=== PATIENT | male | born 1945 | race Caucasian/White ===

== ENCOUNTER 2017-02-14 19:07 | Inpatient (IN) | payer OTHER ==
[~2017-02-14] VITALS: Ht 165.1 cm; Wt 80.1 kg
[~2017-02-14 19:07] MED LIST: ACET1TAB84 PO; ALBUAER2 INH; ASPEC81 PO; ATOR-24 PO; BUDESUS NAE; CARB0.01 OP; CETITAB27 PO; CHOL100010 PO; CLOP1TAB15 PO; CYAN10005 PO; FERR1TAB24 PO; FIBE1CHW PO; FLM4 PO; LOSA1TAB PO; METO-478 PO; MOME200A INH; MULT-190 PO; MULT-506 PO; NTRGSL/4 UT; NXM/40 PO
[2017-02-14] MEDS ORDERED: MoRPHine SULFATE 4 MG/ML 1 ML CARP\\VIAL IV STA (19:30)
[2017-02-14] MEDS ORDERED: ONDANSETRON INJ 2 MG/ML 2 ML VIAL IV STA (19:30)
[2017-02-14] MEDS ORDERED: ASPI81TA21 PO (19:41)
[2017-02-14] MEDS ORDERED: VNTHFA/IN INH (19:41)
[2017-02-14] MEDS ORDERED: CHOL1TAB42 (19:41)
[2017-02-14] MEDS ORDERED: CZR50 PO (19:41)
[2017-02-14] MEDS ORDERED: FLM4 PO (19:41)
[2017-02-14] MEDS ORDERED: BALS1CAP2 PO (19:41)
[2017-02-14] MEDS ORDERED: MOME100A INH (19:41)
[2017-02-14] MEDS ORDERED: CHOL20009 PO (19:58)
[2017-02-14 20:10] LABS: BASO % 0.1 %; BASO ABS # 0.01 K/uL (0-0.2); COMPLETE YES; EOS % 1.5 %; HEMATOCRIT 44.8 % (42-52); IG% 0.2 %; LYMPH % 12.2 %; MEAN CELL VOLUME 93.3 fL (80-100); MEAN CORPUSCULAR HEMOGLOBIN 29.8 pg (25-34); MEAN CORPUSCULAR HGB CONC 31.9 g/dl (32-36); MEAN PLATELET VOLUME 9.5 fL (7.4-10.4); PLATELET COUNT 283 K/uL (130-400); WHITE BLOOD COUNT 12.27 K/uL (4.8-10.8)
[2017-02-14 20:16] LABS: URINE APPEARANCE CLEAR (CLEAR); URINE BILIRUBIN NEG (NEG); URINE COLOR YELLOW; URINE NITRITE NEG (NEG); UROBILINOGEN NEG (NEG)
[2017-02-14 20:20] LABS: MANUAL MICROSCOPIC REQUIRED? NO; REVIEW REQ? NO
[2017-02-14 20:26] LABS: BUN/CREATININE RATIO 15.1 (10-20); CALCIUM 8.9 mg/dl (8.5-10.1); CREATININE 1.1 mg/dl (0.60-1.40); POTASSIUM 4.3 mmol/L (3.5-5.1)
[2017-02-14] MEDS ORDERED: CLZ750 PO (21:08)
[2017-02-14] MEDS ORDERED: OPTIRAY 320 IV PRN (22:00)
--- NOTE | 2017-02-14 22:35 | DIAGNOSTIC IMAGING REPORT ---
ABDOMEN AND PELVIS CT WITH IV AND ORAL CONTRAST CT DOSE: 534.79 mGy.cm HISTORY: periumbilical pain eval for UC exacerbation TECHNIQUE: Multiaxial CT images of the abdomen and pelvis were performed following the use of intravenous and oral contrast. COMPARISON STUDY: None. FINDINGS: The lung bases are clear. No pneumoperitoneum. No pneumatosis. Partial fusion of the right sacroiliac joint. Moderate hiatus hernia. Hepatic steatosis. The gallbladder, spleen, and adrenal glands are unremarkable. Normal pancreas. No renal stones or hydronephrosis. No retroperitoneal lymphadenopathy. Normal bladder. The prostate is mildly enlarged. Normal appendix. The distal colon is decompressed. There is thickening of the terminal ileum involving the distal 20 cm. The ileum proximal to this area is mildly distended and fluid-filled consistent with a low-grade partial small bowel obstruction. IMPRESSION: 1. Mild thickening involving the terminal ileum consistent with an ileitis. This may be due to backwash ileitis in a patient with a history of ulcerative colitis. In addition, other inflammatory or infectious etiologies should be considered. 2. The small bowel proximal to the area of thickened terminal ileum are mildly distended and filled with fluid. Therefore, this is consistent with a partial small bowel obstruction. 3. Moderate hiatus hernia. 4. Hepatic steatosis. Electronically signed by: Dequan Treadwell M.D. 02/14/2017 10:33 PM Dictated Date/Time: 02/14/2017 10:26 PM
[2017-02-15] VITALS (7 sets, daily range): BP systolic 130–151; BP diastolic 79–91; PULSE 73–98; TEMP 36.4–36.7; O2SAT 93–97; Ht 165.1 cm; Wt 80.1 kg
--- NOTE | 2017-02-15 00:32 | EMERGENCY ROOM VISIT NOTE ---
History Report prepared by Regis: Stefanie Jones Under the Supervision of: Dr. Damon Green M.D. First contact with patient: 19:22 Chief Complaint: ABDOMINAL PAIN Stated Complaint: UPPER ABD PAIN History of Present Illness The patient is a 71 year old male who presents to the Emergency Room with complaints of worsening upper abdominal pain beginning at 11am this morning. The patient describes this pain as a sharp sensation. He notes the pain radiates to his mid abdomen. The patient is experiencing a dry throat and nausea. He denies vomiting or fever. The patient states that eating lunch around 12pm worsened his symptoms. He notes nothing improves his symptoms. The patient denies vomiting, diarrhea, pale stool, black or bloody stool, chest pain or trouble breathing. He notes that he still has his gall bladder. The patient has a history of hiatal hernia and ulcerative colitis. He is currently on Balsalazide. The patient initially thought that this was a flare up of his ulcerative colitis but he is not sure. The patient occasionally has an alcoholic beverage and states that Wednesday evening he had 3 beers. Source of History: patient Onset: 11am this morning Position: abdomen (upper) Quality: sharp Timing: worsening Modifying Factors (Worsening): eating Associated Symptoms: + abdominal pain (pain radiates to mid abdomen), + nausea, No chest pain, No diarrhea, No fevers, No hematochezia, No melena, No urinary symptoms, No vomiting Note: The patient is experiencing a dry throat. Review of Systems See HPI for pertinent positives & negatives. A total of 10 systems reviewed and were otherwise negative. Past Medical & Surgical Medical Problems: (1) Chest pain (2) Esophageal reflux (3) Mitral valve disorder (4) Pneumonia (5) Ulcerative colitis Family History Cancer Gallbladder disease Heart disease Hypertension Social History Smoking Status: Never Smoker Alcohol Use: occasionally Marital Status: Housing Status: lives with significant other Occupation Status: employed Current/Historical Medications Scheduled Aspirin Enteric Coated (Ecotrin Or Generic), 81 MG PO HS Atorvastatin (Lipitor), 1 TAB PO HS Balsalazide (Colazal), 2,250 MG PO TID Budesonide (Rhinocort Aq Nasal ), 2 SPRAYS GUILHERME HS Cholecalciferol (Vitamin D), 2,000 MG PO DAILY Clopidogrel (Plavix), 75 MG PO DAILY Cyanocobalamin (Vitamin B-12), 2,000 MCG PO QPM Esomeprazole Magnesium (Nexium), 40 MG PO DAILY Ferrous Sulfate (Feosol), 65 MG PO QAM Fiber (Fiber Select Gummies), 4 MG PO BID Losartan Potassium (Losartan Potassium), 50 MG PO DAILY Metoprolol Succinate (Toprol Xl), 1 TAB PO HS Mometasone Furoate-Formoterol (Dulera 100/5 Mcg), 2 PUFF INH BID Multivitamin (Multivitamin), 1 TAB PO DAILY Nitroglycerin (Nitrostat), 0.4 MG UT PRN Ocuvite Preservision (Ocuvite Preservision), 1 TAB PO DAILY Tamsulosin HCl (Tamsulosin HCl), 0.4 MG PO QPM Scheduled PRN Acetaminophen (Tylenol Arthritis Ext Rel), 2 TABS PO BID PRN for Pain Albuterol Hfa (Ventolin Hfa), 2 PUFFS INH QID PRN for SOB/Wheezing Carboxymethylcellulose-Glyceri (Optive), 1 DROPS OP QID PRN for dry eyes Cetirizine/Pseudoephedrine (Zyrtec-D Er 5MG/120MG), 1 TAB PO QAM PRN for ALLERGIC REACTION Allergies Coded Allergies: No Known Allergies (Verified , 02/14/17) Physical Exam Vital Signs Date Time Temp Pulse Resp B/P Pulse Ox O2 Delivery O2 Flow Rate FiO2 02/15/17 00:00 76 20 161/89 98 02/14/17 22:00 79 20 146/97 96 Room Air 02/14/17 20:49 74 20 160/95 95 02/14/17 19:58 83 20 158/101 98 Room Air 02/14/17 19:50 77 02/14/17 19:15 36.6 90 20 169/102 96 Room Air Physical Exam Constitutional: Vital signs reviewed. Eyes: Pupils are equal round reactive to light. Conjunctiva are noninjected. ENT: Pharynx is clear without erythema or exudate. Mucous membranes are moist. Neck supple without meningeal signs. Respiratory: Clear to auscultation bilaterally. Breath sounds are equal bilaterally. Cardiovascular: Regular rate and rhythm. No rubs or gallops. GI: Periumbilical tenderness, no guarding. Soft and nondistended. Bowel sounds are present. Musculoskeletal: No peripheral edema. No CVA tenderness. Integumentary: No cyanosis. Neurological: The patient is awake and alert. No focal deficits. Psychiatric: Normal affect. Medical Decision & Procedures ER Provider Diagnostic Interpretation: CT results as stated below per my review and radiologist interpretation. ABDOMEN AND PELVIS CT WITH IV AND ORAL CONTRAST CT DOSE: 534.79 mGy.cm HISTORY: periumbilical pain eval for UC exacerbation TECHNIQUE: Multiaxial CT images of the abdomen and pelvis were performed following the use of intravenous and oral contrast. COMPARISON STUDY: None. FINDINGS: The lung bases are clear. No pneumoperitoneum. No pneumatosis. Partial fusion of the right sacroiliac joint. Moderate hiatus hernia. Hepatic steatosis. The gallbladder, spleen, and adrenal glands are unremarkable. Normal pancreas. No renal stones or hydronephrosis. No retroperitoneal lymphadenopathy. Normal bladder. The prostate is mildly enlarged. Normal appendix. The distal colon is decompressed. There is thickening of the terminal ileum involving the distal 20 cm. The ileum proximal to this area is mildly distended and fluid-filled consistent with a low-grade partial small bowel obstruction. IMPRESSION: 1. Mild thickening involving the terminal ileum consistent with an ileitis. This may be due to backwash ileitis in a patient with a history of ulcerative colitis. In addition, other inflammatory or infectious etiologies should be considered. 2. The small bowel proximal to the area of thickened terminal ileum are mildly distended and filled with fluid. Therefore, this is consistent with a partial small bowel obstruction. 3. Moderate hiatus hernia. 4. Hepatic steatosis. Electronically signed by: Dequan Treadwell M.D. 02/14/2017 10:33 PM Dictated Date/Time: 02/14/2017 10:26 PM Laboratory Results 02/14/17 20:00 Red Blood Count 4.80, Mean Corpuscular Volume 93.3, Mean Corpuscular Hemoglobin 29.8, Mean Corpuscular Hemoglobin Concent 31.9, Mean Platelet Volume 9.5, Neutrophils (%) (Auto) 77.0, Lymphocytes (%) (Auto) 12.2, Monocytes (%) (Auto) 9.0, Eosinophils (%) (Auto) 1.5, Basophils (%) (Auto) 0.1, Neutrophils # (Auto) 9.45, Lymphocytes # (Auto) 1.50, Monocytes # (Auto) 1.10, Eosinophils # (Auto) 0.19, Basophils # (Auto) 0.01 02/14/17 20:00 Test 02/14/17 19:55 02/14/17 20:00 Urine Color YELLOW Urine Appearance CLEAR (CLEAR) Urine pH 6.0 (4.5-7.5) Urine Specific [place] 1.020 (1.000-1.030) Urine Protein NEG (NEG) Urine Glucose (UA) NEG (NEG) Urine Ketones NEG (NEG) Urine Occult Blood NEG (NEG) Urine Nitrite NEG (NEG) Urine Bilirubin NEG (NEG) Urine Urobilinogen NEG (NEG) Urine Leukocyte Esterase NEG (NEG) White Blood Count 12.27 K/uL (4.8-10.8) Red Blood Count 4.80 M/uL (4.7-6.1) Hemoglobin 14.3 g/dL (14.0-18.0) Hematocrit 44.8 % (42-52) Mean Corpuscular Volume 93.3 fL (80-100) Mean Corpuscular Hemoglobin 29.8 pg (25-34) Mean Corpuscular Hemoglobin Concent 31.9 g/dl (32-36) Platelet Count 283 K/uL (130-400) Mean Platelet Volume 9.5 fL (7.4-10.4) Neutrophils (%) (Auto) 77.0 % Lymphocytes (%) (Auto) 12.2 % Monocytes (%) (Auto) 9.0 % Eosinophils (%) (Auto) 1.5 % Basophils (%) (Auto) 0.1 % Neutrophils # (Auto) 9.45 K/uL (1.4-6.5) Lymphocytes # (Auto) 1.50 K/uL (1.2-3.4) Monocytes # (Auto) 1.10 K/uL (0.11-0.59) Eosinophils # (Auto) 0.19 K/uL (0-0.5) Basophils # (Auto) 0.01 K/uL (0-0.2) RDW Standard Deviation 50.4 fL (36.4-46.3) RDW Coefficient of Variation 14.8 % (11.5-14.5) Immature Granulocyte % (Auto) 0.2 % Immature Granulocyte # (Auto) 0.02 K/uL (0.00-0.02) Anion Gap 5.0 mmol/L (3-11) Est Creatinine Clear Calc Drug Dose 60.9 ml/min Estimated GFR () 78.4 Estimated GFR (Non- 67.7 BUN/Creatinine Ratio 15.1 (10-20) Calcium Level 8.9 mg/dl (8.5-10.1) Total Bilirubin 0.5 mg/dl (0.2-1) Direct Bilirubin 0.1 mg/dl (0-0.2) Aspartate Amino Transf (AST/SGOT) 18 U/L (15-37) Alanine Aminotransferase (ALT/SGPT) 22 U/L (12-78) Alkaline Phosphatase 75 U/L (45-117) Total Protein 7.4 gm/dl (6.4-8.2) Albumin 3.8 gm/dl (3.4-5.0) Lipase 79 U/L (73-393) Laboratory results as reviewed by me. Medications Administered Medications (Trade) Dose Ordered Sig/Marcela Route Start Time Stop Time Status Last Admin Dose Admin Morphine Sulfate (MoRPHine SULFATE INJ) 4 mg ONE STAT IV 02/14/17 19:30 02/14/17 19:32 DC 02/14/17 20:05 4 MG Ondansetron HCl (Zofran Inj) 4 mg NOW STAT IV 02/14/17 19:30 02/14/17 19:32 DC 02/14/17 20:05 4 MG ECG Indication: abdominal pain Rate (beats per minute): 69 Rhythm: normal sinus Findings: no acute ischemic change, no ectopy ED Course 1923: The patient was evaluated in room C4. A complete history and physical exam was performed. 1929: Zofran Inj 4 mg IV, Morphine Sulfate Inj 4 mg IV. 2041: I checked on the patient. I discussed his test results and elevated blood pressure with him. 2249: I discussed the patient's CT results with him. He notes the pain is coming back a little. 2252: I spoke with Dr. Juarez of [facility]. We discussed the patient and his results. The patient will be further evaluated by Dr. nAn Cohn. Medical Decision This is a 71-year-old male who presents with abdominal pain. Differential diagnosis includes pancreatitis, ulcerative colitis exacerbation, abscess, cholelithiasis, cholecystitis, duodenitis. I did perform a limited focused review of portions of the patient's old chart on the electronic medical record. The patient has had no recent pertinent visits to this hospital. Medication Reconciliation: I attest that I have personally reviewed the patient' s current medication list. Blood Pressure Screening: Patient was found to have an elevated blood pressure and was referred to their primary doctor for recheck and further treatment. I did evaluate the patient as noted above. IV access was established. I did treat the patient with IV morphine and Zofran. I did order and personally review the patient's 12-lead EKG as described above. I did order and review the patient's blood work as noted in the electronic medical record. His white blood cell count is slightly elevated. I did order a CT of the abdomen and pelvis. I did review the images myself as well as the radiology report as described above. He appears to have an ileitis and partial small bowel obstruction. I did discuss the test results with the patient. I did recommend hospitalization for further care and evaluation. I did discuss the case with the hospitalist and caseworker. Consults Time Called: 2250 Consulting Physician: Dr. Ann Cohn Returned Call: [phone] Juarez of [facility]. We discussed the patient and his results. The patient will be further evaluated by Dr. Ann Cohn. Impression Primary Impression: Partial small bowel obstruction Additional Impressions: Ileitis Ulcerative colitis Scribe Attestation The scribe's documentation has been prepared under my direct and personally reviewed by me in its entirety. I confirm that the note above accurately reflects all work, treatment, procedures, and medical decision making performed by me. Departure Information Dispostion Being Evaluated By Hospitalist Referrals Cherelle To M.D. (PCP) Problem Qualifiers Additional Impressions: Ulcerative colitis Ulcerative colitis location: unspecified ulcerative colitis location Digestive disease complication type: other complication Qualified Codes: K51.918 - Ulcerative colitis, unspecified with other complication
[2017-02-15] MEDS ORDERED: MoRPHine SULFATE 4 MG/ML 1 ML CARP\\VIAL IV PRN (04:15)
[2017-02-15] MEDS ORDERED: ACETAMINOPHEN 325 MG TAB PO PRN (04:30)
[2017-02-15] MEDS ORDERED: ARTIFICIAL TEARS OP SOLN OP PRN ×2 (04:30)
[2017-02-15] MEDS ORDERED: ONDANSETRON INJ 2 MG/ML 2 ML VIAL IV PRN (04:30)
--- NOTE | 2017-02-15 04:47 | History and Physical ---
History & Physical Date & Time of Service: February 15, 2017 at 04:34 Chief Complaint: Upper Abd Pain Primary Care Physician: Cherelle To M.D. History of Present Illness Source: patient, clinic records, hospital records 71 year old male with history of Ulcerative Colitis presenting with abdominal pain x [address] To for PCP and Dr. Caldwell for GI. Patient was at his usual state of health until the day of admission. He started to have crampy abdominal discomfort in the morning but notes normal BM at around 7am. After lunch, lower abdominal pain increased associated with nausea. No fever/chills. The pain persisted prompting consult to the ER. CT abdomen showed ileitis, with possible partial small bowel obstruction. He was given Morphine and Zofran. On my exam, patient was comfortable, resting. States abdominal pain is now only mild, improved since admission. No active nausea. No vomiting, diarrhea, hematochezia. Denies other symptoms. Past Medical/Surgical History Medical Problems: (1) Pneumonia Status: Resolved (2) Ulcerative colitis Status: Chronic Family History Cancer Gallbladder disease Heart disease Hypertension Social History Smoking Status: Never Smoker Alcohol Use: occasionally (once a week) Drug Use: none Marital Status: Housing status: lives with family Occupational Status: employed Immunizations History of Influenza Vaccine: Yes Influenza Vaccine Date: Jun 23, 2010 History of Tetanus Vaccine?: Unknown Tetanus Immunization Date: Jan 10, 2002 History of Pneumococcal: Unknown History of Hepatitis B Vaccine: No Multi-Drug Resistant Organisms History of MDRO: No Allergies Coded Allergies: No Known Allergies (Verified , 02/14/17) Home Medications Scheduled Aspirin Enteric Coated (Ecotrin Or Generic), 81 MG PO HS Atorvastatin (Lipitor), 1 TAB PO HS Balsalazide (Colazal), 2,250 MG PO TID Budesonide (Rhinocort Aq Nasal ), 2 SPRAYS GUILHERME HS Cholecalciferol (Vitamin D), 2,000 MG PO DAILY Clopidogrel (Plavix), 75 MG PO DAILY Cyanocobalamin (Vitamin B-12), 2,000 MCG PO QPM Esomeprazole Magnesium (Nexium), 40 MG PO DAILY Ferrous Sulfate (Feosol), 65 MG PO QAM Fiber (Fiber Select Gummies), 4 MG PO BID Losartan Potassium (Losartan Potassium), 50 MG PO DAILY Metoprolol Succinate (Toprol Xl), 1 TAB PO HS Mometasone Furoate-Formoterol (Dulera 100/5 Mcg), 2 PUFF INH BID Multivitamin (Multivitamin), 1 TAB PO DAILY Nitroglycerin (Nitrostat), 0.4 MG UT PRN Ocuvite Preservision (Ocuvite Preservision), 1 TAB PO DAILY Tamsulosin HCl (Tamsulosin HCl), 0.4 MG PO QPM Scheduled PRN Acetaminophen (Tylenol Arthritis Ext Rel), 2 TABS PO BID PRN for Pain Albuterol Hfa (Ventolin Hfa), 2 PUFFS INH QID PRN for SOB/Wheezing Carboxymethylcellulose-Glyceri (Optive), 1 DROPS OP QID PRN for dry eyes Cetirizine/Pseudoephedrine (Zyrtec-D Er 5MG/120MG), 1 TAB PO QAM PRN for ALLERGIC REACTION Review of Systems Constitutional- no fever; no weight loss Eyes- no acute visual changes ENT- no sinus drainage; no pharyngitis Pulmonary- no cough, no wheezing, no shortness of breath Cardiac- no chest pain, no palpitations, no orthopnea, no dependent edema GI- no diarrhea, no melena, no hematochezia - no dysuria, no hematuria Musculoskeletal- no arthralgias, no myalgias Derm- no rashes, no new skin lesions, no changing skin lesions Hematologic- no unusual bruising, no unusual bleeding Lymphatics- no adenopathy Endocrine- no polyuria or polydipsia; no heat or cold intolerance Neuro- no headaches, no focal neurologic symptoms Psych- no anxiety, no depression Physical Exam Vital Signs Date Time Temp Pulse Resp B/P Pulse Ox O2 Delivery O2 Flow Rate FiO2 02/15/17 02:00 102 20 126/86 98 02/15/17 00:31 36.7 89 16 130/91 97 Room Air 02/15/17 00:00 76 20 161/89 98 02/14/17 22:00 79 20 146/97 96 Room Air 02/14/17 20:49 74 20 160/95 95 02/14/17 19:58 83 20 158/101 98 Room Air 02/14/17 19:50 77 02/14/17 19:15 36.6 90 20 169/102 96 Room Air General Appearance: WD/WN, no apparent distress Head: normocephalic, atraumatic Eyes: normal inspection, EOMI, sclerae normal ENT: normal ENT inspection, hearing grossly normal, pharynx normal Neck: supple, no adenopathy, thyroid normal, no JVD, trachea midline Respiratory/Chest: chest non-tender, lungs clear, normal breath sounds, no respiratory distress, no accessory muscle use Cardiovascular: regular rate, rhythm, no edema, no JVD, no murmur Abdomen/GI: normal bowel sounds, non tender, soft, no organomegaly Back: normal inspection, no CVA tenderness Extremities/Musculoskelatal: normal inspection, no calf tenderness, no pedal edema, normal range of motion Neurologic/Psych: gluing 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 feeder II-XII nml as tested, no motor/sensory deficits, alert, normal mood/affect, oriented x 3 Skin: normal color, warm/dry, no rash Lymphatic: no adenopathy Diagnostics Laboratory Results Results Past 24 Hours Test 02/14/17 19:55 02/14/17 20:00 02/15/17 04:27 Range/Units Urine Color YELLOW Urine Appearance CLEAR CLEAR Urine pH 6.0 4.5-7.5 Urine Specific [place] 1.020 1.000-1.030 Urine Protein NEG NEG Urine Glucose (UA) NEG NEG Urine Ketones NEG NEG Urine Occult Blood NEG NEG Urine Nitrite NEG NEG Urine Bilirubin NEG NEG Urine Urobilinogen NEG NEG Urine Leukocyte Esterase NEG NEG White Blood Count 12.27 4.8-10.8 K/uL Red Blood Count 4.80 4.7-6.1 M/uL Hemoglobin 14.3 14.0-18.0 g/dL Hematocrit 44.8 42-52 % Mean Corpuscular Volume 93.3 80-100 fL Mean Corpuscular Hemoglobin 29.8 25-34 pg Mean Corpuscular Hemoglobin Concent 31.9 32-36 g/dl Platelet Count 283 130-400 K/uL Mean Platelet Volume 9.5 7.4-10.4 fL Neutrophils (%) (Auto) 77.0 % Lymphocytes (%) (Auto) 12.2 % Monocytes (%) (Auto) 9.0 % Eosinophils (%) (Auto) 1.5 % Basophils (%) (Auto) 0.1 % Neutrophils # (Auto) 9.45 1.4-6.5 K/uL Lymphocytes # (Auto) 1.50 1.2-3.4 K/uL Monocytes # (Auto) 1.10 0.11-0.59 K/uL Eosinophils # (Auto) 0.19 0-0.5 K/uL Basophils # (Auto) 0.01 0-0.2 K/uL RDW Standard Deviation 50.4 36.4-46.3 fL RDW Coefficient of Variation 14.8 11.5-14.5 % Immature Granulocyte % (Auto) 0.2 % Immature Granulocyte # (Auto) 0.02 0.00-0.02 K/uL Sodium Level 141 136-145 mmol/L Potassium Level 4.3 3.5-5.1 mmol/L Chloride Level 105 98-107 mmol/L Carbon Dioxide Level 31 21-32 mmol/L Anion Gap 5.0 3-11 mmol/L Blood Urea Nitrogen 17 7-18 mg/dl Creatinine 1.10 0.60-1.40 mg/dl Est Creatinine Clear Calc Drug Dose 60.9 ml/min Estimated GFR () 78.4 Estimated GFR (Non- 67.7 BUN/Creatinine Ratio 15.1 10-20 Random Glucose 111 70-99 mg/dl Calcium Level 8.9 8.5-10.1 mg/dl Total Bilirubin 0.5 0.2-1 mg/dl Direct Bilirubin 0.1 0-0.2 mg/dl Aspartate Amino Transf (AST/SGOT) 18 15-37 U/L Alanine Aminotransferase (ALT/SGPT) 22 12-78 U/L Alkaline Phosphatase 75 45-117 U/L Total Protein 7.4 6.4-8.2 gm/dl Albumin 3.8 3.4-5.0 gm/dl Lipase 79 73-393 U/L Diagnostic Radiology ABDOMEN AND PELVIS CT WITH IV AND ORAL CONTRAST CT DOSE: 534.79 mGy.cm HISTORY: periumbilical pain eval for UC exacerbation TECHNIQUE: Multiaxial CT images of the abdomen and pelvis were performed following the use of intravenous and oral contrast. COMPARISON STUDY: None. FINDINGS: The lung bases are clear. No pneumoperitoneum. No pneumatosis. Partial fusion of the right sacroiliac joint. Moderate hiatus hernia. Hepatic steatosis. The gallbladder, spleen, and adrenal glands are unremarkable. Normal pancreas. No renal stones or hydronephrosis. No retroperitoneal lymphadenopathy. Normal bladder. The prostate is mildly enlarged. Normal appendix. The distal colon is decompressed. There is thickening of the terminal ileum involving the distal 20 cm. The ileum proximal to this area is mildly distended and fluid-filled consistent with a low-grade partial small bowel obstruction. IMPRESSION: 1. Mild thickening involving the terminal ileum consistent with an ileitis. This may be due to backwash ileitis in a patient with a history of ulcerative colitis. In addition, other inflammatory or infectious etiologies should be considered. 2. The small bowel proximal to the area of thickened terminal ileum are mildly distended and filled with fluid. Therefore, this is consistent with a partial small bowel obstruction. 3. Moderate hiatus hernia. 4. Hepatic steatosis. EKG HR 69, sinus rhythm, no acute ischemia Impression Assessment and Plan 71 year old male with history of Ulcerative Colitis presenting with abdominal pain x 1 day. ILEITIS, POSSIBLE PARTIAL SMALL BOWEL OBSTRUCTION ULCERATIVE COLITIS - follows with Dr. Caldwell for GI in [place] - denies hematochezia, diarrhea, fever - start Cipro + Metro IV one dose Prednisone 40mg PO (may have component of Crohn's?) IV fluids NPO - hold Balsalazide until GI evaluation - GI and Surgery consulted HYPERTENSION - Metoprolol, Losartan DYSLIPIDEMIA - hold statin until GI symptoms resolve GERD - Protonix IV BPH - Tamsulosin DVT PROPHYLAXIS SCDs only for now due to ongoing ileitis FULL CODE PER PATIENT DISPOSITION anticipate d/c home when medically stable Advanced Directives Existing Living Will: Yes Existing Power of Railroad Carman: Yes VTE Prophylaxis VTE Risk Assessment Done? Y/N: Yes Risk Level: Moderate Given or contraindicated: SCD's
[2017-02-15] MEDS: D5W AND NSS 1,000 ML IV SCH ×2 (05:29→13:47)
[2017-02-15] MEDS ORDERED: PANTOprazole INJ 40 MG in SYRINGE 0 ML IV ONE (05:30)
[2017-02-15] MEDS: METRONIDAZOLE / NSS 500 MG in PREMIXED NSS 100 ML IV SCH ×3 (05:48→22:06)
--- NOTE | 2017-02-15 05:59 | Medical Consult ---
Consultation Date of Consultation: February 15, 2017. Attending Physician: Britton Britt MD Reason for Consultation: partial sbo History of Present Illness admitted with abd pain, nausea- CT shows mildly dilated sm bowel w/ evidence of ileitis h/o ulcerative colitis- very stable Past Medical/Surgical History Medical Problems: (1) Angina pectoris Status: Acute (2) Ileitis Status: Acute (3) Partial small bowel obstruction Status: Acute (4) Right upper lobe pneumonia Status: Acute (5) Ulcerative colitis Status: Chronic Family History Cancer Gallbladder disease Heart disease Hypertension Social History Smoking Status: Never Smoker Alcohol Use: occasionally (once a week) Drug Use: none Marital Status: Housing Status: lives with significant other Occupation Status: employed Allergies Coded Allergies: No Known Allergies (Verified , 02/14/17) Current Inpatient Medications Current Inpatient Medications Medications (Trade) Dose Ordered Sig/Marcela Route Start Time Stop Time Status Last Admin Dose Admin Ioversol 100 ml 100 ml UD PRN IV 02/14/17 22:00 02/18/17 21:59 Dextrose/Sodium Chloride 1,000 ml @ 100 mls/hr Q10H IV 02/15/17 04:15 03/17/17 04:14 02/15/17 05:29 100 MLS/HR Ciprofloxacin/ Dextrose 400 mg/ Prmx 200 ml @ 100 mls/hr Q12H IV 02/15/17 08:00 02/25/17 07:59 Metronidazole/Prmx (Flagyl / Nss/ Premixed Nss) 100 ml @ 100 mls/hr Q8H IV 02/15/17 06:00 02/25/17 05:59 02/15/17 05:48 100 MLS/HR Prednisone (PredniSONE TAB) 40 mg ONE ONCE PO 02/15/17 06:00 02/15/17 06:01 Morphine Sulfate (MoRPHine SULFATE INJ) 4 mg Q6H PRN IV 02/15/17 04:15 03/01/17 04:14 Budesonide (Rhinocort Aq Nasal [place]) 2 sprays HS GUILHERME 02/15/17 21:00 03/17/17 20:59 Losartan Potassium (coZAAR TAB) 50 mg DAILY PO 02/15/17 09:00 03/17/17 08:59 Metoprolol Succinate (Toprol Xl Tab) 25 mg HS PO 02/15/17 21:00 03/17/17 20:59 Tamsulosin HCl (Flomax Cap) 0.4 mg QPM PO 02/15/17 21:00 03/17/17 20:59 Artificial Tears (Artificial Tears) 1 drops QID PRN OP 02/15/17 04:30 03/17/17 04:29 Miscellaneous Information 1 ea 1 ea QS N/A 02/15/17 08:00 03/17/17 07:59 Pantoprazole Sodium/Syringe (Protonix Inj/ Syringe) 10 ml @ 5 mls/min DAILY@11 IV 02/15/17 11:00 03/17/17 10:59 Acetaminophen (Tylenol Tab) 650 mg Q4H PRN PO 02/15/17 04:30 03/17/17 04:29 Ondansetron HCl (Zofran Inj) 4 mg Q6H PRN IV 02/15/17 04:30 03/17/17 04:29 Review of Systems Constitutional: No chills, No fever Respiratory: No cough, No shortness of breath Cardiovascular: No chest pain Abdomen: + nausea, + pain, No vomiting Genitourinary - Male: No dysuria Endocrine: No fatigue Integumentary: No rash Physical Exam Date Time Temp Pulse Resp B/P Pulse Ox O2 Delivery O2 Flow Rate FiO2 02/15/17 04:55 Room Air 02/15/17 04:55 36.6 95 16 136/80 93 Room Air 02/15/17 04:45 89 20 126/81 94 Room Air 02/15/17 02:00 102 20 126/86 98 02/15/17 00:31 36.7 89 16 130/91 97 Room Air 02/15/17 00:00 76 20 161/89 98 02/14/17 22:00 79 20 146/97 96 Room Air 02/14/17 20:49 74 20 160/95 95 02/14/17 19:58 83 20 158/101 98 Room Air 02/14/17 19:50 77 02/14/17 19:15 36.6 90 20 169/102 96 Room Air General Appearance: WD/WN, no apparent distress Head: atraumatic Neck: supple Respiratory/Chest: normal breath sounds, no respiratory distress Cardiovascular: regular rate, rhythm Abdomen/GI: normal bowel sounds, non tender, soft Extremities/Musculoskelatal: no pedal edema Neurologic/Psych: alert Skin: warm/dry Laboratory Results Last 24 Hours Test 02/14/17 19:55 02/14/17 20:00 02/15/17 04:27 Urine Color YELLOW Urine Appearance CLEAR Urine pH 6.0 Urine Specific [place] 1.020 Urine Protein NEG Urine Glucose (UA) NEG Urine Ketones NEG Urine Occult Blood NEG Urine Nitrite NEG Urine Bilirubin NEG Urine Urobilinogen NEG Urine Leukocyte Esterase NEG White Blood Count 12.27 K/uL Red Blood Count 4.80 M/uL Hemoglobin 14.3 g/dL Hematocrit 44.8 % Mean Corpuscular Volume 93.3 fL Mean Corpuscular Hemoglobin 29.8 pg Mean Corpuscular Hemoglobin Concent 31.9 g/dl Platelet Count 283 K/uL Mean Platelet Volume 9.5 fL Neutrophils (%) (Auto) 77.0 % Lymphocytes (%) (Auto) 12.2 % Monocytes (%) (Auto) 9.0 % Eosinophils (%) (Auto) 1.5 % Basophils (%) (Auto) 0.1 % Neutrophils # (Auto) 9.45 K/uL Lymphocytes # (Auto) 1.50 K/uL Monocytes # (Auto) 1.10 K/uL Eosinophils # (Auto) 0.19 K/uL Basophils # (Auto) 0.01 K/uL RDW Standard Deviation 50.4 fL RDW Coefficient of Variation 14.8 % Immature Granulocyte % (Auto) 0.2 % Immature Granulocyte # (Auto) 0.02 K/uL Sodium Level 141 mmol/L Potassium Level 4.3 mmol/L Chloride Level 105 mmol/L Carbon Dioxide Level 31 mmol/L Anion Gap 5.0 mmol/L Blood Urea Nitrogen 17 mg/dl Creatinine 1.10 mg/dl Est Creatinine Clear Calc Drug Dose 60.9 ml/min Estimated GFR () 78.4 Estimated GFR (Non- 67.7 BUN/Creatinine Ratio 15.1 Random Glucose 111 mg/dl Calcium Level 8.9 mg/dl Total Bilirubin 0.5 mg/dl Direct Bilirubin 0.1 mg/dl Aspartate Amino Transf (AST/SGOT) 18 U/L Alanine Aminotransferase (ALT/SGPT) 22 U/L Alkaline Phosphatase 75 U/L Total Protein 7.4 gm/dl Albumin 3.8 gm/dl Lipase 79 U/L Assessment & Plan 02/15/17- adm with partial sbo, ileitis, h/o UC. Has relatively normal bowel sounds and very minimally dilated small bowel- should resolve with medical mgt- no indication for surgical intervention at this point
[2017-02-15 06:13] LABS: BASO % 0.1 %; BASO ABS # 0.01 K/uL (0-0.2); COMPLETE YES; EOS % 1.9 %; HEMATOCRIT 39.7 % (42-52); IG% 0.3 %; LYMPH ABS # 1.43 K/uL (1.2-3.4); MEAN CELL VOLUME 92.5 fL (80-100); MEAN CORPUSCULAR HEMOGLOBIN 30.3 pg (25-34); MEAN CORPUSCULAR HGB CONC 32.7 g/dl (32-36); MEAN PLATELET VOLUME 9.8 fL (7.4-10.4); MONO % 12.7 %; PLATELET COUNT 270 K/uL (130-400); RED BLOOD COUNT 4.29 M/uL (4.7-6.1); WHITE BLOOD COUNT 10.21 K/uL (4.8-10.8)
[2017-02-15 06:43] LABS: BUN/CREATININE RATIO 16.3 (10-20); CALCIUM 8.5 mg/dl (8.5-10.1); CREATININE 0.98 mg/dl (0.60-1.40); MAGNESIUM 2.3 mg/dl (1.8-2.4); POTASSIUM 4.1 mmol/L (3.5-5.1)
[2017-02-15] MEDS: CIPROFLOXACIN / D5W 400 MG in PREMIXED IN D5W 200 ML IV SCH ×2 (07:39→19:41)
[2017-02-15] MEDS: LOSARTAN POTASSIUM 50 MG TAB PO SCH (07:39)
--- NOTE | 2017-02-15 09:39 | Progress Note ---
Internal Med Progress Note Date of Service: February 15, 2017. Provider Documentation: SUBJECTIVE: Seen and examined at bedside. States had BM this morning. Reports abd pain resolved. Denies nausea, vomiting, fever, chest pain, SOB. OBJECTIVE: Vital Signs-as noted below Physical Exam: General Appearance:Moderately built and nourished, no apparent distress Head: normocephalic, Atraumatic Eyes: normal inspection, EOMI, PERRL Neck: supple, Trachea midline Respiratory/Chest: Normal breath sounds, CTA Cardiovascular: S1, S2, No murmur Abdomen/GI:Soft, Non tender, Bowel sounds present Extremities/Musculoskelatal:normal inspection, no edema Neurologic/Psych:AAOX3, grossly no focal neurological deficits Skin: normal color, warm Lab data as noted below. ASSESSMENT & PLAN: Patient is a 71 yr old male with H/O of Ulcerative Colitis presents with abdominal pain for 1 day. ILEITIS, POSSIBLE PARTIAL SMALL BOWEL OBSTRUCTION H/O ULCERATIVE COLITIS Patient follows with Dr. Caldwell for GI in [place] Continue Cipro, Flagyl Received one dose Prednisone 40mg PO Continue IV fluids Start clear liquid diet Hold Balsalazide for now Await for GI evaluation Appreciate surgery input: No indication for surgery HYPERTENSION Continue Metoprolol, Losartan DYSLIPIDEMIA hold statin GERD Protonix IV BPH Continue Tamsulosin DVT PX SCDs Code Status: Full Code DISPOSITION Plan to discharge home when medically stable PROCEDURES: CT ABD: 1. Mild thickening involving the terminal ileum consistent with an ileitis. This may be due to backwash ileitis in a patient with a history of ulcerative colitis. In addition, other inflammatory or infectious etiologies should be considered. 2. The small bowel proximal to the area of thickened terminal ileum are mildly distended and filled with fluid. Therefore, this is consistent with a partial small bowel obstruction. 3. Moderate hiatus hernia. 4. Hepatic steatosis. Vital Signs: Date Time Temp Pulse Resp B/P Pulse Ox O2 Delivery O2 Flow Rate FiO2 02/15/17 07:35 Room Air 02/15/17 06:57 36.6 73 18 135/79 95 Room Air 02/15/17 04:55 Room Air 02/15/17 04:55 36.6 95 16 136/80 93 Room Air 02/15/17 04:45 89 20 126/81 94 Room Air 02/15/17 02:00 102 20 126/86 98 02/15/17 00:31 36.7 89 16 130/91 97 Room Air 02/15/17 00:00 76 20 161/89 98 02/14/17 22:00 79 20 146/97 96 Room Air 02/14/17 20:49 74 20 160/95 95 02/14/17 19:58 83 20 158/101 98 Room Air 02/14/17 19:50 77 02/14/17 19:15 36.6 90 20 169/102 96 Room Air Lab Results: Results Past 24 Hours Test 02/14/17 19:55 02/14/17 20:00 02/15/17 06:02 Range/Units Urine Color YELLOW Urine Appearance CLEAR CLEAR Urine pH 6.0 4.5-7.5 Urine Specific [place] 1.020 1.000-1.030 Urine Protein NEG NEG Urine Glucose (UA) NEG NEG Urine Ketones NEG NEG Urine Occult Blood NEG NEG Urine Nitrite NEG NEG Urine Bilirubin NEG NEG Urine Urobilinogen NEG NEG Urine Leukocyte Esterase NEG NEG White Blood Count 12.27 10.21 4.8-10.8 K/uL Red Blood Count 4.80 4.29 4.7-6.1 M/uL Hemoglobin 14.3 13.0 14.0-18.0 g/dL Hematocrit 44.8 39.7 42-52 % Mean Corpuscular Volume 93.3 92.5 80-100 fL Mean Corpuscular Hemoglobin 29.8 30.3 25-34 pg Mean Corpuscular Hemoglobin Concent 31.9 32.7 32-36 g/dl Platelet Count 283 270 130-400 K/uL Mean Platelet Volume 9.5 9.8 7.4-10.4 fL Neutrophils (%) (Auto) 77.0 71.0 % Lymphocytes (%) (Auto) 12.2 14.0 % Monocytes (%) (Auto) 9.0 12.7 % Eosinophils (%) (Auto) 1.5 1.9 % Basophils (%) (Auto) 0.1 0.1 % Neutrophils # (Auto) 9.45 7.25 1.4-6.5 K/uL Lymphocytes # (Auto) 1.50 1.43 1.2-3.4 K/uL Monocytes # (Auto) 1.10 1.30 0.11-0.59 K/uL Eosinophils # (Auto) 0.19 0.19 0-0.5 K/uL Basophils # (Auto) 0.01 0.01 0-0.2 K/uL RDW Standard Deviation 50.4 50.9 36.4-46.3 fL RDW Coefficient of Variation 14.8 15.1 11.5-14.5 % Immature Granulocyte % (Auto) 0.2 0.3 % Immature Granulocyte # (Auto) 0.02 0.03 0.00-0.02 K/uL Sodium Level 141 140 136-145 mmol/L Potassium Level 4.3 4.1 3.5-5.1 mmol/L Chloride Level 105 105 98-107 mmol/L Carbon Dioxide Level 31 29 21-32 mmol/L Anion Gap 5.0 6.0 3-11 mmol/L Blood Urea Nitrogen 17 16 7-18 mg/dl Creatinine 1.10 0.98 0.60-1.40 mg/dl Est Creatinine Clear Calc Drug Dose 60.9 68.4 ml/min Estimated GFR () 78.4 90.2 Estimated GFR (Non- 67.7 77.8 BUN/Creatinine Ratio 15.1 16.3 10-20 Random Glucose 111 112 70-99 mg/dl Calcium Level 8.9 8.5 8.5-10.1 mg/dl Total Bilirubin 0.5 0.2-1 mg/dl Direct Bilirubin 0.1 0-0.2 mg/dl Aspartate Amino Transf (AST/SGOT) 18 15-37 U/L Alanine Aminotransferase (ALT/SGPT) 22 12-78 U/L Alkaline Phosphatase 75 45-117 U/L Total Protein 7.4 6.4-8.2 gm/dl Albumin 3.8 3.4-5.0 gm/dl Lipase 79 73-393 U/L Magnesium Level 2.3 1.8-2.4 mg/dl
[2017-02-15] MEDS: PANTOprazole INJ 40 MG in SYRINGE 0 ML IV SCH (10:58)
[2017-02-15] MEDS ORDERED: ASPIRIN 81 MG ECTAB PO SCH (21:00)
[2017-02-15] MEDS ORDERED: TAMSULOSIN HCL 0.4 MG CAP PO SCH (21:00)
[2017-02-15] MEDS ORDERED: BUDESONIDE AQ (RHINOCORT AQ) NASAL SPRAY 32 MCG NAE SCH (21:00)
[2017-02-15] MEDS ORDERED: METOPROLOL SUCC 25MG EXT REL TAB PO SCH (21:00)
[2017-02-16] MEDS: D5W AND NSS 1,000 ML IV SCH ×2 (02:04→11:14)
[2017-02-16] MEDS: METRONIDAZOLE / NSS 500 MG in PREMIXED NSS 100 ML IV SCH ×2 (05:50→13:53)
[2017-02-16 07:16] LABS: BASO % 0.1 %; BASO ABS # 0.01 K/uL (0-0.2); COMPLETE YES; EOS % 1.2 %; IG% 0.3 %; LYMPH % 17.4 %; LYMPH ABS # 1.95 K/uL (1.2-3.4); MEAN CORPUSCULAR HEMOGLOBIN 28.6 pg (25-34); MEAN CORPUSCULAR HGB CONC 30.8 g/dl (32-36); MEAN PLATELET VOLUME 9.6 fL (7.4-10.4); MONO % 14.5 %; NEUT % 66.5 %; PLATELET COUNT 287 K/uL (130-400); WHITE BLOOD COUNT 11.21 K/uL (4.8-10.8)
[2017-02-16 07:40] VITALS: BP 130/80; PULSE 72; TEMP 36.6; O2SAT 94
[2017-02-16 07:55] LABS: BUN/CREATININE RATIO 11.2 (10-20); CALCIUM 8.3 mg/dl (8.5-10.1); MAGNESIUM 2.4 mg/dl (1.8-2.4)
[2017-02-16] MEDS: LOSARTAN POTASSIUM 50 MG TAB PO SCH (08:27)
[2017-02-16 08:42] VITALS: O2SAT 94
[2017-02-16] MEDS: CIPROFLOXACIN / D5W 400 MG in PREMIXED IN D5W 200 ML IV SCH (08:43)
[2017-02-16] MEDS ORDERED: CLOPIDOGREL BISULFATE 75 MG TAB PO SCH (09:00)
--- NOTE | 2017-02-16 09:01 | Clinical Documentation Query ---
Dr. [facility] : CLINICAL DOCUMENTATION QUERY Patient is a 71 year old male admitted with ileitis, possible partial SBO in the setting of ulcerative colitis. CT scan of the abdomen read to include "This may be due to backwash ileitis in a patient with a history of ulcerative colitis". If you agree with this radiologic interpretation, consider documentation thereof as this assigns to an alternative DRG triplet associated with an increased severity of illness and risk of mortality. Thank you. In your clinical opinion is this patient being managed for: ( X ) Backwash ileitis and possible partial SBO ( ) Other explanation of clinical findings (Please Explain) ( ) Unable to determine (Please Define) ( ) Need to Discuss ( ) Not Agree The medical record reflects the following clinical findings, treatment, and risk factors. Clinical Indicators: As above Treatment: Cipro, Flagyl, IVF, clear liquid diet, GI consultation Risk Factors: Ulcerative colitis Please clarify and document your clinical opinion in the progress notes and discharge summary. Terms such as "probable", "suspected", "likely", "questionable", "possible", or "still to be ruled out" are acceptable. IF IN AGREEMENT, YOU MUST DOCUMENT ABOVE DIAGNOSTIC STATEMENT IN DAILY PROGRESS NOTES AND DISCHARGE SUMMARY. This document is not part of the patient's record. Thank You, Amando Fernandes, FREDA [phone]
[2017-02-16] MEDS: PANTOprazole INJ 40 MG in SYRINGE 0 ML IV SCH (11:13)
--- NOTE | 2017-02-16 11:18 | Gastrointestinal Consultation ---
Gastrointestinal Consultation Date of Consultation: February 16, 2017 Attending Physician: Britton Britt Consulting Physician: Lupe Wetzel Reason for Consultation: Ileitis, partial SBO, hx of UC History of Present Illness Patient is a 71 year old male who presented yesterday to Ed w c/o abd pain. He has hx of Ulcerative Colitis, sees Dr. Shepard from [facility]. Last colonoscopy September 2016, pt report disease in good control. Diagnosed w UC 20 yrs ago, always been on 5-ASA class of meds, switched from a different brand he can't remember to Balsalazide 2 yrs ago due to insurance coverage. He denies any hx of surgery for UC, any flares, hx of Cdiff. He went to vacation at [facility] recently, denies any dietary changes, only thing he noted was he had [employer] w gina slaw on Wednesday prior to abd pain symptoms. Otherwise his bowel habits have always been normal 2-3x a day, soft stools w hematochezia at times but he was told it's likely from hemorrhoids. Labs including CBC, CMP, UA unremarkable. He had CT abd/pelvis which showed mild thickening involving the TI consistent w ileitis, small bowel distended w fluid filled likely partial SBO. There's a moderate hiatal hernia, hepatic steatosis. He's admitted for PSBO , started on Cipro/Flagyl antibx. Today pt reports that his abd pain is resolved. He's had a few BMs and passing flatus. Denies any N/V. Tolerating CL diet, would like diet advancement if possible. Past Medical/Surgical History Medical Problems: (1) Angina pectoris Status: Acute (2) Ileitis Status: Acute (3) Partial small bowel obstruction Status: Acute (4) Right upper lobe pneumonia Status: Acute (5) Ulcerative colitis Status: Chronic Past Medical History: Pneumonia [place]. Gallbladder disease HTN Heart disease Family History Cancer Gallbladder disease Heart disease Hypertension Social History Smoking Status: Never Smoker Alcohol Use: occasionally Drug Use: none Marital Status: Housing Status: lives with significant other Occupation Status: employed Allergies Coded Allergies: No Known Allergies (Verified , 02/14/17) Current Medications Home Meds and Scripts Medications Dose Route/Sig Max Daily Dose Days Date Category Vitamin D (Cholecalciferol) 2,000 Unit Tab 2,000 Mg PO DAILY 02/14/17 Reported Tamsulosin HCl 0.4 Mg Cap 0.4 Mg PO QPM 02/14/17 Reported Dulera 100/5 Mcg (Mometasone Furoate-Formoterol) 1 Aer Aer 2 Puff INH BID 02/14/17 Reported Losartan Potassium 50 Mg Tab 50 Mg PO DAILY 02/14/17 Reported Ventolin Hfa (Albuterol) 200 Puffs/91647 Mcg Aers 2 Puffs INH QID PRN 02/14/17 Reported Ecotrin Or Generic (Aspirin) 81 Mg Tab 81 Mg PO HS 02/14/17 Reported Zyrtec-D Er 5MG/120MG (Cetirizine/Pseudoephedrine) Tabcr 1 Tab PO QAM PRN 15 08/18/15 Reported Colazal (Balsalazide) 750 Mg Cap 2,250 Mg PO TID 08/02/15 Reported Fiber Select Gummies (Fiber) 1 Chw Chw 4 Mg PO BID 06/18/15 Reported Ocuvite Preservision (Multivitamins/Minerals) 1 Tab Tab 1 Tab PO DAILY 06/18/15 Reported Toprol Xl (Metoprolol Succinate) 25 Mg Tab 1 Tab PO HS 30 06/18/15 Reported Tylenol Arthritis Ext Rel (Acetaminophen) 650 Mg Cplt 2 Tabs PO BID PRN 06/18/15 Reported Multivitamin (Multivitamins) Tab 1 Tab PO DAILY 06/18/15 Reported Optive (Carboxymethylcellulose-Glyceri) 1 Robert Robert 1 Drops OP QID PRN 30 06/18/15 Reported Feosol (Ferrous Sulfate) 65 Mg Tab 65 Mg PO QAM 06/18/15 Reported Lipitor (Atorvastatin Calcium) 40 Mg Tab 1 Tab PO HS 90 06/18/15 Reported Plavix (Clopidogrel Bisulfate) 75 Mg Tab 75 Mg PO DAILY 06/18/15 Reported Nexium (Esomeprazole Magnesium) 40 Mg Capcr 40 Mg PO DAILY 06/18/15 Reported Rhinocort Aq Nasal (Budesonide) Aero 2 Sprays GUILHERME HS 09/07/10 Reported Vitamin B-12 (Cyanocobalamin) 1,000 Mcg Tab 2,000 Mcg PO QPM 09/07/10 Reported Nitrostat (Nitroglycerin) 0.4 Mg Tab 0.4 Mg UT PRN 03/31/10 Reported Review of Systems Constitutional: No chills, No fever Respiratory: No cough, No shortness of breath Abdomen: + see HPI, No nausea, No pain, No vomiting Physical Exam Date Time Temp Pulse Resp B/P Pulse Ox O2 Delivery O2 Flow Rate FiO2 02/16/17 08:42 94 Room Air 02/16/17 07:40 36.6 72 18 130/80 94 Room Air 02/16/17 07:25 Room Air 02/16/17 00:15 Room Air 02/15/17 23:07 36.4 74 16 144/86 97 Room Air 02/15/17 20:56 89 151/91 02/15/17 15:45 94 Room Air 02/15/17 15:25 36.5 98 18 135/81 94 Room Air General Appearance: WD/WN, no apparent distress Eyes: normal inspection, PERRL, EOMI Neck: supple, no JVD, trachea midline Respiratory/Chest: normal breath sounds, no respiratory distress, no accessory muscle use Cardiovascular: regular rate, rhythm, no gallop, no murmur Abdomen: normal bowel sounds, non tender, soft Extremities: normal inspection, no pedal edema, no calf tenderness Neurologic/Psych: alert, normal mood/affect, oriented x 3 Skin: normal color, no jaundice, no rash Laboratory Results Last 24 Hours Test 02/16/17 06:48 White Blood Count 11.21 K/uL Red Blood Count 4.30 M/uL Hemoglobin 12.3 g/dL Hematocrit 40.0 % Mean Corpuscular Volume 93.0 fL Mean Corpuscular Hemoglobin 28.6 pg Mean Corpuscular Hemoglobin Concent 30.8 g/dl Platelet Count 287 K/uL Mean Platelet Volume 9.6 fL Neutrophils (%) (Auto) 66.5 % Lymphocytes (%) (Auto) 17.4 % Monocytes (%) (Auto) 14.5 % Eosinophils (%) (Auto) 1.2 % Basophils (%) (Auto) 0.1 % Neutrophils # (Auto) 7.46 K/uL Lymphocytes # (Auto) 1.95 K/uL Monocytes # (Auto) 1.63 K/uL Eosinophils # (Auto) 0.13 K/uL Basophils # (Auto) 0.01 K/uL RDW Standard Deviation 51.7 fL RDW Coefficient of Variation 15.3 % Immature Granulocyte % (Auto) 0.3 % Immature Granulocyte # (Auto) 0.03 K/uL Sodium Level 145 mmol/L Potassium Level 4.0 mmol/L Chloride Level 111 mmol/L Carbon Dioxide Level 28 mmol/L Anion Gap 6.0 mmol/L Blood Urea Nitrogen 11 mg/dl Creatinine 1.00 mg/dl Est Creatinine Clear Calc Drug Dose 67.0 ml/min Estimated GFR () 88.0 Estimated GFR (Non- 75.9 BUN/Creatinine Ratio 11.2 Random Glucose 102 mg/dl Calcium Level 8.3 mg/dl Magnesium Level 2.4 mg/dl Impression Patient is a 71 year old male hx of UC, admitted w partial SBO. Previously have good control of UC on Balsalazide, no flare episodes. Last colonoscopy by Dr. Kurtz in September. Currently he's having BMs w passing flatus, denies any abd pain, n/v. Plan - Obtain KUB - If KUB shows improving small bowel distension, ok to advance to [place], then advance as tolerated - Cipro/Flagyl x 7 days - Ok to restart Balsalazide upon DC and f/u w Dr. Kurtz at [facility].
--- NOTE | 2017-02-16 11:49 | DIAGNOSTIC IMAGING REPORT ---
KUB CLINICAL HISTORY: Reevaluate small bowel obstruction. COMPARISON STUDY: CT of the abdomen and pelvis February 06, 2017. FINDINGS: Oral contrast has passed into the colon and rectum. There is no evidence for high-grade small bowel obstruction. Mild small bowel dilatation has improved since exam of February 14, 2017. A few loops of mildly dilated small bowel persist. IMPRESSION: 1. Persistent, but improved, small bowel dilatation. 2. Passage of oral contrast into the colon and rectum since prior CT. Therefore, there is no evidence for a high grade small bowel obstruction. Electronically signed by: Man Marroquin M.D. 02/16/2017 11:47 AM Dictated Date/Time: 02/16/2017 11:45 AM
--- NOTE | 2017-02-16 12:03 | Surgery Progress Note ---
Surgery Progress Note Date of Service February 16, 2017. Subjective + bowel movements KUB- contrast in colon, minimally dilated sm bowel Objective Vital Signs: Date Time Temp Pulse Resp B/P Pulse Ox O2 Delivery O2 Flow Rate FiO2 02/16/17 08:42 94 Room Air 02/16/17 07:40 36.6 72 18 130/80 94 Room Air 02/16/17 07:25 Room Air 02/16/17 00:15 Room Air 02/15/17 23:07 36.4 74 16 144/86 97 Room Air 02/15/17 20:56 89 151/91 02/15/17 15:45 94 Room Air 02/15/17 15:25 36.5 98 18 135/81 94 Room Air Laboratory Results: Results Past 24 Hours Test 02/16/17 06:48 Range/Units White Blood Count 11.21 4.8-10.8 K/uL Red Blood Count 4.30 4.7-6.1 M/uL Hemoglobin 12.3 14.0-18.0 g/dL Hematocrit 40.0 42-52 % Mean Corpuscular Volume 93.0 80-100 fL Mean Corpuscular Hemoglobin 28.6 25-34 pg Mean Corpuscular Hemoglobin Concent 30.8 32-36 g/dl Platelet Count 287 130-400 K/uL Mean Platelet Volume 9.6 7.4-10.4 fL Neutrophils (%) (Auto) 66.5 % Lymphocytes (%) (Auto) 17.4 % Monocytes (%) (Auto) 14.5 % Eosinophils (%) (Auto) 1.2 % Basophils (%) (Auto) 0.1 % Neutrophils # (Auto) 7.46 1.4-6.5 K/uL Lymphocytes # (Auto) 1.95 1.2-3.4 K/uL Monocytes # (Auto) 1.63 0.11-0.59 K/uL Eosinophils # (Auto) 0.13 0-0.5 K/uL Basophils # (Auto) 0.01 0-0.2 K/uL RDW Standard Deviation 51.7 36.4-46.3 fL RDW Coefficient of Variation 15.3 11.5-14.5 % Immature Granulocyte % (Auto) 0.3 % Immature Granulocyte # (Auto) 0.03 0.00-0.02 K/uL Sodium Level 145 136-145 mmol/L Potassium Level 4.0 3.5-5.1 mmol/L Chloride Level 111 98-107 mmol/L Carbon Dioxide Level 28 21-32 mmol/L Anion Gap 6.0 3-11 mmol/L Blood Urea Nitrogen 11 7-18 mg/dl Creatinine 1.00 0.60-1.40 mg/dl Est Creatinine Clear Calc Drug Dose 67.0 ml/min Estimated GFR () 88.0 Estimated GFR (Non- 75.9 BUN/Creatinine Ratio 11.2 10-20 Random Glucose 102 70-99 mg/dl Calcium Level 8.3 8.5-10.1 mg/dl Magnesium Level 2.4 1.8-2.4 mg/dl Assessment & Plan 02/16/17- Does not have obstruction requiring surgery would advance diet as tolerated- mgt per GI and medical service
--- NOTE | 2017-02-16 12:26 | Progress Note ---
Internal Med Progress Note Date of Service: February 16, 2017. Provider Documentation: SUBJECTIVE: Seen and examined at bedside. States had 2 semiformed BM today (States which is normal for him). Denies nausea, abd pain, chest pain, SOB. OBJECTIVE: Vital Signs-as noted below Physical Exam: General Appearance:Moderately built and nourished, no apparent distress Head: normocephalic, Atraumatic Eyes: normal inspection, EOMI, PERRL Neck: supple, Trachea midline Respiratory/Chest: Normal breath sounds, CTA Cardiovascular: S1, S2, No murmur Abdomen/GI:Soft, Non tender, Bowel sounds present Extremities/Musculoskelatal:normal inspection, no edema Neurologic/Psych:AAOX3, grossly no focal neurological deficits Skin: normal color, warm Lab data as noted below. ASSESSMENT & PLAN: Patient is a 71 yr old male with H/O of Ulcerative Colitis presents with abdominal pain for 1 day. ILEITIS, PARTIAL SMALL BOWEL OBSTRUCTION H/O ULCERATIVE COLITIS Patient follows with Dr. Caldwell for GI in [place] Continue Cipro, Flagyl S/P one dose Prednisone 40mg PO Continue IV fluids Advance diet as tolerated Plan to resume Balsalazide upon DC Appreciate surgery/GI input: No indication for surgery HYPERTENSION Continue Metoprolol, Losartan DYSLIPIDEMIA hold statin GERD Protonix IV BPH Continue Tamsulosin DVT PX SCDs Code Status: Full Code DISPOSITION Plan to discharge home today Follow up with in 1 week as advised. Needs follow up with gastroenterology Dr. Kurtz at [facility] as advised. Seek immediate medical attention if your symptoms reoccur or worsen PROCEDURES: CT ABD: 1. Mild thickening involving the terminal ileum consistent with an ileitis. This may be due to backwash ileitis in a patient with a history of ulcerative colitis. In addition, other inflammatory or infectious etiologies should be considered. 2. The small bowel proximal to the area of thickened terminal ileum are mildly distended and filled with fluid. Therefore, this is consistent with a partial small bowel obstruction. 3. Moderate hiatus hernia. 4. Hepatic steatosis. Vital Signs: Date Time Temp Pulse Resp B/P Pulse Ox O2 Delivery O2 Flow Rate FiO2 02/16/17 08:42 94 Room Air 02/16/17 07:40 36.6 72 18 130/80 94 Room Air 02/16/17 07:25 Room Air 02/16/17 00:15 Room Air 02/15/17 23:07 36.4 74 16 144/86 97 Room Air 02/15/17 20:56 89 151/91 02/15/17 15:45 94 Room Air Lab Results: Results Past 24 Hours Test 02/16/17 06:48 Range/Units White Blood Count 11.21 4.8-10.8 K/uL Red Blood Count 4.30 4.7-6.1 M/uL Hemoglobin 12.3 14.0-18.0 g/dL Hematocrit 40.0 42-52 % Mean Corpuscular Volume 93.0 80-100 fL Mean Corpuscular Hemoglobin 28.6 25-34 pg Mean Corpuscular Hemoglobin Concent 30.8 32-36 g/dl Platelet Count 287 130-400 K/uL Mean Platelet Volume 9.6 7.4-10.4 fL Neutrophils (%) (Auto) 66.5 % Lymphocytes (%) (Auto) 17.4 % Monocytes (%) (Auto) 14.5 % Eosinophils (%) (Auto) 1.2 % Basophils (%) (Auto) 0.1 % Neutrophils # (Auto) 7.46 1.4-6.5 K/uL Lymphocytes # (Auto) 1.95 1.2-3.4 K/uL Monocytes # (Auto) 1.63 0.11-0.59 K/uL Eosinophils # (Auto) 0.13 0-0.5 K/uL Basophils # (Auto) 0.01 0-0.2 K/uL RDW Standard Deviation 51.7 36.4-46.3 fL RDW Coefficient of Variation 15.3 11.5-14.5 % Immature Granulocyte % (Auto) 0.3 % Immature Granulocyte # (Auto) 0.03 0.00-0.02 K/uL Sodium Level 145 136-145 mmol/L Potassium Level 4.0 3.5-5.1 mmol/L Chloride Level 111 98-107 mmol/L Carbon Dioxide Level 28 21-32 mmol/L Anion Gap 6.0 3-11 mmol/L Blood Urea Nitrogen 11 7-18 mg/dl Creatinine 1.00 0.60-1.40 mg/dl Est Creatinine Clear Calc Drug Dose 67.0 ml/min Estimated GFR () 88.0 Estimated GFR (Non- 75.9 BUN/Creatinine Ratio 11.2 10-20 Random Glucose 102 70-99 mg/dl Calcium Level 8.3 8.5-10.1 mg/dl Magnesium Level 2.4 1.8-2.4 mg/dl
[2017-02-16] MEDS ORDERED: METR-163 PO (15:35)
[2017-02-16] MEDS ORDERED: CPR500 PO (15:35)
--- NOTE | 2017-02-16 15:37 | Discharge Summary ---
Discharge Summary Date of Service February 16, 2017. Discharge Summary Admission Date: February 15, 2017 at 04:15 Discharge Date: February 16, 2017 Discharge Disposition: Home Principal Diagnosis: Partial SBO, Ileitis Procedures: CT ABD: 1. Mild thickening involving the terminal ileum consistent with an ileitis. This may be due to backwash ileitis in a patient with a history of ulcerative colitis. In addition, other inflammatory or infectious etiologies should be considered. 2. The small bowel proximal to the area of thickened terminal ileum are mildly distended and filled with fluid. Therefore, this is consistent with a partial small bowel obstruction. 3. Moderate hiatus hernia. 4. Hepatic steatosis. KUB; 1. Persistent, but improved, small bowel dilatation. 2. Passage of oral contrast into the colon and rectum since prior CT. Therefore, there is no evidence for a high grade small bowel obstruction. Consultations: GI, Surgery Pending Studies/Follow-Up: Follow up with in 1 week as advised. Needs follow up with gastroenterology Dr. Kurtz at [facility] as advised. Seek immediate medical attention if your symptoms reoccur or worsen Medication Reconciliation New Medications: Ciprofloxacin (Ciprofloxacin HCl) 500 Mg Tab 500 MG PO BID for 5 Days, #10 Metronidazole (Flagyl) 500 Mg Tab 500 MG PO TID for 5 Days, #15 TAB Continued Medications: Acetaminophen (Tylenol Arthritis Ext Rel) 650 Mg Cplt 2 TABS PO BID PRN for Pain, CAP Albuterol Hfa (Ventolin Hfa) 200 Puffs/81648 Mcg Aers 2 PUFFS INH QID PRN for SOB/Wheezing, #1 INHALER Aspirin Enteric Coated (Ecotrin Or Generic) 81 Mg Tab 81 MG PO HS, TAB Atorvastatin (Lipitor) 40 Mg Tab 1 TAB PO HS for 90 Days, #90 TAB 3 Refills Balsalazide (Colazal) 750 Mg Cap 2250 MG PO TID, CAP Budesonide (Rhinocort Aq Nasal ) Aero 2 SPRAYS GUILHERME HS, 0 Refills Carboxymethylcellulose-Glyceri (Optive) 1 Robert Robert 1 DROPS OP QID PRN for dry eyes for 30 Days, #30 ML 6 Refills Cetirizine/Pseudoephedrine (Zyrtec-D Er 5MG/120MG) Tabcr 1 TAB PO QAM PRN for ALLERGIC REACTION for 15 Days, #30 TAB Cholecalciferol (Vitamin D) 2,000 Unit Tab 2000 MG PO DAILY Clopidogrel (Plavix) 75 Mg Tab 75 MG PO DAILY, TAB Cyanocobalamin (Vitamin B-12) 1,000 Mcg Tab 2000 MCG PO QPM, 0 Refills Esomeprazole Magnesium (Nexium) 40 Mg Capcr 40 MG PO DAILY, CAP Ferrous Sulfate (Feosol) 65 Mg Tab 65 MG PO QAM Fiber (Fiber Select Gummies) 1 Chw Chw 4 MG PO BID Losartan Potassium (Losartan Potassium) 50 Mg Tab 50 MG PO DAILY, #30 Metoprolol Succinate (Toprol Xl) 25 Mg Tab 1 TAB PO HS for 30 Days, #30 TAB 5 Refills Mometasone Furoate-Formoterol (Dulera 100/5 Mcg) 1 Aer Aer 2 PUFF INH BID, #13 Multivitamin (Multivitamin) Tab 1 TAB PO DAILY, TAB Nitroglycerin (Nitrostat) 0.4 Mg Tab 0.4 MG UT PRN, 0 Refills Ocuvite Preservision (Ocuvite Preservision) 1 Tab Tab 1 TAB PO DAILY, TAB Tamsulosin HCl (Tamsulosin HCl) 0.4 Mg Cap 0.4 MG PO QPM, #90 Admission Information HPI (per Admitting provider): 71 year old male with history of Ulcerative Colitis presenting with abdominal pain x [address] To for PCP and Dr. Caldwell for GI. Patient was at his usual state of health until the day of admission. He started to have crampy abdominal discomfort in the morning but notes normal BM at around 7am. After lunch, lower abdominal pain increased associated with nausea. No fever/chills. The pain persisted prompting consult to the ER. CT abdomen showed ileitis, with possible partial small bowel obstruction. He was given Morphine and Zofran. On my exam, patient was comfortable, resting. States abdominal pain is now only mild, improved since admission. No active nausea. No vomiting, diarrhea, hematochezia. Denies other symptoms. Physical Exam (per Admitting): General Appearance: WD/WN, no apparent distress Head: normocephalic, atraumatic Eyes: normal inspection, EOMI, sclerae normal ENT: normal ENT inspection, hearing grossly normal, pharynx normal Neck: supple, no adenopathy, thyroid normal, no JVD, trachea midline Respiratory/Chest: chest non-tender, lungs clear, normal breath sounds, no respiratory distress, no accessory muscle use Cardiovascular: regular rate, rhythm, no edema, no JVD, no murmur Abdomen/GI: normal bowel sounds, non tender, soft, no organomegaly Back: normal inspection, no CVA tenderness Extremities/Musculoskelatal: normal inspection, no calf tenderness, no pedal edema, normal range of motion Neurologic/Psych: 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 ILEITIS, PARTIAL SMALL BOWEL OBSTRUCTION H/O ULCERATIVE COLITIS Patient follows with Dr. Caldwell for GI in [place] Continue Cipro, Flagyl S/P one dose Prednisone 40mg PO Continue IV fluids Advance diet as tolerated Plan to resume Balsalazide upon DC Appreciate surgery/GI input: No indication for surgery HYPERTENSION Continue Metoprolol, Losartan DYSLIPIDEMIA hold statin GERD Protonix IV BPH Continue Tamsulosin DVT PX SCDs Code Status: Full Code DISPOSITION Plan to discharge home today Follow up with in 1 week as advised. Needs follow up with gastroenterology Dr. Kurtz at [facility] as advised. Seek immediate medical attention if your symptoms reoccur or worsen PROCEDURES: CT ABD: 1. Mild thickening involving the terminal ileum consistent with an ileitis. This may be due to backwash ileitis in a patient with a history of ulcerative colitis. In addition, other inflammatory or infectious etiologies should be considered. 2. The small bowel proximal to the area of thickened terminal ileum are mildly distended and filled with fluid. Therefore, this is consistent with a partial small bowel obstruction. 3. Moderate hiatus hernia. 4. Hepatic steatosis. Total time spent on discharge =35 minutes This includes examination of the patient, discharge planning, medication reconciliation, and communication with other providers. Discharge Instructions Discharge Instructions Date of Service February 16, 2017. Admission Reason for Admission: Partial Small Bowel Obstruction Discharge Discharge Diagnosis / Problem: Partial SBO, Ileitis Discharge Goals Goal(s): Decrease discomfort, Improve function Activity Recommendations Activity Limitations: resume your previous activity Exercise/Sports Limitations: as tolerated . Instructions / Follow-Up Instructions / Follow-Up Follow up with in 1 week as advised. Needs follow up with gastroenterology Dr. Kurtz at [facility] as advised. Seek immediate medical attention if your symptoms reoccur or worsen Current Hospital Diet Patient's current hospital diet: Full Liquid Diet Discharge Diet Recommended Diet: Low Fiber Diet Pending Studies Studies pending at discharge: no Medical Emergencies . Who to Call and When: Medical Emergencies: If at any time you feel your situation is an emergency, please call 911 immediately. . Non-Emergent Contact Non-Emergency issues call your: Primary Care Provider, Business Reporter Call Non-Emergent contact if: you have a fever, your pain is not controlled, your pain is worsening, your pain is unusual for you, you have any medication questions . . "Provider Documentation" section prepared by Britton Britt. . VTE Core Measure Inpt VTE Proph given/why not?: SCD's
[2017-02-16 16:01] VITALS: BP 130/80; PULSE 72; TEMP 36.6; O2SAT 94
[2017-02-17] MEDS ORDERED: METRONIDAZOLE 500 MG TAB PO SCH ×2 (06:00)
[2017-02-17] MEDS ORDERED: CIPROFLOXACIN 500 MG TAB PO SCH (08:00)
[2017-02-17] MEDS ORDERED: PANTOprazole SOD 40 MG TAB PO SCH (09:00)
== END 2017-02-16 16:22 | disposition home or self-care (01) | DRG 386 ==
LOC: ENRESERVTM → ENRESERVDT → C.EDB 19:08 → C.MSW 02-15 04:15 → EDBEDREQ 02-15 04:18
PROVIDERS: ADMIT Internal Medicine; ATTEND Internal Medicine
DX: K51.912 Ulcerative colitis, unspecified with intestinal obstruction (principal); K52.9 Noninfective gastroenteritis and colitis, unspecified; I10 Essential (primary) hypertension; E78.5 Hyperlipidemia, unspecified; K21.9 Gastro-esophageal reflux disease without esophagitis; N40.0 Benign prostatic hyperplasia without lower urinary tract symptoms; Z79.82 Long term (current) use of aspirin; Z79.02 Long term (current) use of antithrombotics/antiplatelets; Z79.51 Long term (current) use of inhaled steroids; Z79.899 Other long term (current) drug therapy

== ENCOUNTER → 2017-03-19 | Outpatient (CLI) | payer OTHER ==
[~2017-03-19] VITALS: Ht 166.4 cm; Wt 75.9 kg
[~2017-03-19] MED LIST changes: -ALBUAER2 INH; -ASPEC81 PO; +ASPI81TA21 PO; -CHOL100010 PO; +CHOL20009 PO; +CLZ750 PO; +CPR500 PO; +CZR50 PO; -LOSA1TAB PO; -METO-478 PO; +METO1TAB31 PO; +MOME100A INH; -MOME200A INH; +VNTHFA/IN INH
[2017-03-19 15:21] VITALS: BP 119/79; PULSE 91; Ht 166.4 cm; Wt 75.9 kg
== END | disposition home or self-care (01) ==
LOC: C.NEUR 14:55
PROVIDERS: ATTEND Physician Assistant
DX: G47.33 Obstructive sleep apnea (adult) (pediatric) (principal)

== ENCOUNTER → 2017-03-25 | Outpatient (CLI) | payer OTHER ==
[2017-03-25 13:21] LABS: CHOLESTEROL/HDL RATIO 3.1
== END | disposition home or self-care (01) ==
LOC: C.LABPBG 07:36
PROVIDERS: ATTEND Internal Medicine Cardiovascular Disease
DX: E78.00 Pure hypercholesterolemia, unspecified (principal); I10 Essential (primary) hypertension

== ENCOUNTER → 2017-09-23 | Outpatient (CLI) | payer OTHER ==
[~2017-09-23] VITALS: Ht 165.1 cm; Wt 79.7 kg
[~2017-09-23] MED LIST changes: +ASPI-319 PO; -ASPI81TA21 PO; +METO-478 PO; -METO1TAB31 PO
[2017-09-23 14:20] VITALS: BP 134/75; PULSE 86; Ht 165.1 cm; Wt 79.7 kg
== END | disposition home or self-care (01) ==
LOC: C.NEUR 14:00
PROVIDERS: ATTEND Physician Assistant
DX: G47.33 Obstructive sleep apnea (adult) (pediatric) (principal); G47.9 Sleep disorder, unspecified

== ENCOUNTER → 2017-09-27 | Outpatient (CLI) | payer OTHER ==
[~2017-09-27] MED LIST changes: -ASPI-319 PO; +ASPI81TA21 PO
[2017-09-27 13:03] LABS: HEMATOCRIT 44.4 % (42-52); HEMOGLOBIN 14.5 g/dL (14.0-18.0); MEAN CELL VOLUME 95.9 fL (80-100); MEAN CORPUSCULAR HEMOGLOBIN 31.3 pg (25-34); MEAN CORPUSCULAR HGB CONC 32.7 g/dl (32-36); MEAN PLATELET VOLUME 10.2 fL (7.4-10.4); PLATELET COUNT 260 K/uL (130-400); RED CELL DISTRIBUTION WIDTH CV 14.5 % (11.5-14.5); RED CELL DISTRIBUTION WIDTH SD 50.7 fL (36.4-46.3); WHITE BLOOD COUNT 7.43 K/uL (4.8-10.8)
[2017-09-27 13:28] LABS: ALBUMIN 3.8 gm/dl (3.4-5.0); ALT/SGPT 23 U/L (12-78); BLOOD UREA NITROGEN 18 mg/dl (7-18); CARBON DIOXIDE 28 mmol/L (21-32); CHOLESTEROL 130 mg/dl (0-200); CREATININE 1.06 mg/dl (0.60-1.40); GLUCOSE,FASTING 128 mg/dl (70-99); POTASSIUM 4.3 mmol/L (3.5-5.1); SODIUM 138 mmol/L (136-145)
[2017-09-27 13:32] LABS: ALKALINE PHOSPHATASE 68 U/L (45-117); AST/SGOT 21 U/L (15-37); LDL CHOLESTEROL CALCULATED 51 mg/dl; TOTAL PROTEIN 7.3 gm/dl (6.4-8.2)
== END | disposition home or self-care (01) ==
LOC: C.LABPBG 07:38
PROVIDERS: ATTEND Internal Medicine Cardiovascular Disease
DX: E55.9 Vitamin D deficiency, unspecified (principal); I10 Essential (primary) hypertension; E78.00 Pure hypercholesterolemia, unspecified; K51.918 Ulcerative colitis, unspecified with other complication; D50.0 Iron deficiency anemia secondary to blood loss (chronic); E78.5 Hyperlipidemia, unspecified; B40.1 Chronic pulmonary blastomycosis

== ENCOUNTER 2020-03-19 17:58 | Inpatient (IN) ==
--- NOTE | 2020-03-19 19:02 | Emergency Department Note ---
Impression & Plan Acute GI bleeding, Hemorrhoids, Anemia, Post-op bleeding ED Provider Note NAME: SIMON JORGEALEKit AGE: 74 SEX: M : 1945 ARRIVES VIA: Ambulance INFORMANT: Patient, ED PROVIDER(S): Amari Encinas DO CHIEF COMPLAINT: GI bleed HPI: Patient is a 74-year-old male who recently underwent prostate ultrasound and biopsy done at [place]. He was discharged by 1030. He had 2 bowel movements which were unremarkable but diarrhea. He did urinate once which had blood in it. Following this he has had 6 bowel movements of just pure blood. He did felt dizzy and lightheaded. Called EMS and presents the ER. He does not feel as lightheaded as he did before. Denies any chest pain shortness of breath nausea or vomiting. No dysuria urgency or frequency. He does take Plavix but has not taken this since Wednesday. He is currently taking aspirin per his car diologist. ROS: See above HPI for pertinent positives & negatives. A total of 10 systems reviewed and were otherwise negative. PAST MEDICAL HISTORY:See Below PAST SURGICAL HISTORY:See Below FAMILY HISTORY:See Below SOCIAL HISTORY:See Below HOME MEDICATIONS:See Below ALLERGIES:See Below VITALS:See Below PHYSICAL EXAMINATION: GENERAL: Sitting up in bed, alert, well appearing, well nourished, no distress, non-toxic EYE EXAM: normal conjunctiva. OROPHARYNX: no exudate, no erythema, lips, buccal mucosa, and tongue normal and mucous membranes are moist NECK: supple, no nuchal rigidity, no adenopathy, non-tender LUNGS: Clear to auscultation. Normal chest wall mechanics HEART: no murmurs, S1 normal and S2 normal ABDOMEN: abdomen soft, non-tender, normo-active bowel sounds, no masses, no rebound or guarding. BACK: Back is symmetrical on inspection and there is no deformity, no midline tenderness, no CVA tenderness. : External hernias which are non-engorged or bleeding. Dried blood down both legs UPPER EXTREMITIES: upper extremities are grossly normal. LOWER EXTREMITIES: No pitting edema. NEURO EXAM: Normal sensorium, cranial nerves II-XII grossly intact, normal speech, no gross weakness of arms, no gross weakness of legs. MEDICAL DECISION MAKING: Patient is a 74-year-old male who presents the ER for bright red blood per rectum. He is status post ultrasound-guided biopsy of the prostate at 1030 this morning at [place]. He has had 6 bowel movements of bright red blood. He does feel dizzy and lightheaded. IV was established and he was brought in by EMS. Blood work was obtained. Labs show mild leukocytosis of 12,000. Mild anemia 10.5. INR was unremarkable. He did stop his Plavix. Still taking aspirin. BMP with an elevated BUN of 26. LFTs bilirubin and troponin was unremarkable. Hemoglobin dropped from 13.7 about 15 days ago to 10.5 today. He was given IV fluids. He was not tachycardic. With a large drop in hemoglobin I discussed case with hospitalist for observation. He has no abdominal pain at this time. Triage Nursing notes reviewed. Prior medical records reviewed Vital Signs: reviewed and remarkable for no significant abnormalities Differential diagnosis: Differential diagnosis includes etiologies such as diverticulitis, diverticulosis, AVM, coagulopathy, colitis, inflammatory bowel disease, malignancy, Otilia-Stanford tear, esophagitis, peptic ulcer disease, variceal bleed, gastritis, epistaxis, fissure, hemorrhoids, as well as others were entertained. ER treatment provided: See below Diagnostics interpreted by me: ECG: Sinus rhythm rate 78 Normal axis No PVCs Normal QTC Cardiac Monitoring: An order was placed for continuous cardiac monitoring. The monitor shows a rate of 78 with sinus rhythm. Laboratory studies: As stated above and show below. Imaging studies: See below Consultation(s): Discussed with Dr. Phillips ED COURSE: Procedures: none Critical Care: None Past Med/Surg History Medical History (Updated 03/19/20 @ 21:19 by Amari Encinas DO) Chest pain Esophageal hernia Esophageal reflux Hemorrhoids (Acute) Mitral valve disorder Pneumonia (Resolved) SBO (small bowel obstruction) Severe sleep apnea Ulcerative colitis (Chronic) Surgical History H/O heart artery stent Social History Preferred Language: Angolan Communication Ability: Effective Visual Impairment: No Limitations Hearing Ability: Normal marital status: marital status details: Current Living Situation: Spouse Feels Safe at Home: Yes Smoking Status: Never smoker Hx Alcohol Use: Yes Alcohol Intake Frequency Comment: Socially Allergies Allergies Allergy/AdvReac Type Severity Reaction Status Date / Time No Known Drug Allergies Allergy Unknown Verified 02/20/20 23:16 Home Meds Home Medications Medication Instructions Recorded Confirmed C,E,zinc,copper [id number] 1 cap PO QAM 03/15/19 03/19/20 [Ocuvite Adult 50 Plus] albuterol sulfate 2 puff INHALATION QID PRN 03/15/19 03/19/20 aspirin 81 mg PO HS 03/15/19 03/19/20 atorvastatin 40 mg PO HS 03/15/19 03/19/20 budesonide [Rhinocort Allergy] 2 spray INTRANASAL HS 03/15/19 03/19/20 carboxymethylcellulose-glycern 1 drp OPHTHALMIC (EYE) QID 03/15/19 03/19/20 cetirizine-pseudoephedrine 1 tab PO Q12H PRN 03/15/19 03/19/20 [Zyrtec-D] clopidogrel 75 mg PO QAM 03/15/19 03/19/20 cyanocobalamin (vitamin B-12) 1,000 mcg PO QPM 03/15/19 03/19/20 [Vitamin B-12] diclofenac sodium [Voltaren] 2 g TOPICAL TID PRN 03/15/19 03/19/20 esomeprazole magnesium [Nexium] 40 mg PO QAM 03/15/19 03/19/20 ferrous sulfate 325 mg PO QAM 03/15/19 03/19/20 folic acid 0.8 mg PO QAM 03/15/19 03/19/20 inulin-chromium picolinate [Fiber 2 tab PO BID 03/15/19 03/19/20 Select Gummies] losartan 25 mg PO QAM 03/15/19 03/19/20 metoprolol succinate 25 mg PO 03/15/19 03/19/20 multivitamin 1 tab PO QAM 03/15/19 03/19/20 nitroglycerin 0.4 mg SUBLINGUAL UD PRN 03/15/19 03/19/20 sulfasalazine 500 mg PO TID 03/15/19 03/19/20 tamsulosin 0.4 mg PO QPM 03/15/19 03/19/20 cholecalciferol (vitamin D3) 125 5,000 unit PO DAILY tab 10/26/19 03/19/20 mcg (5,000 unit) tablet famotidine 40 mg tablet 40 mg PO DAILY 10/26/19 03/19/20 fluticasone propion-salmeterol 1 inh INHALATION DAILY 02/20/20 03/19/20 ciprofloxacin HCl 500 mg PO UD 03/19/20 03/19/20 Results & Data (ED) Vital Signs Vital Signs - 24 hr 03/19/20 18:10 03/19/20 18:13 03/19/20 18:19 Temperature 36.9 C Temperature Source Oral Pulse Rate 68 84 Pulse Rate [Right Finger] Pulse Rate from SpO2 Sensor Respiratory Rate 18 24 Blood Pressure 109/75 110/70 95/73 L Blood Pressure [Right Arm] Blood Pressure Mean 85 83 78 Blood Pressure Mean [Right Arm] Pulse Oximetry 95 Oxygen Delivery Method Room Air Sepsis Recent Fever Within 48 Hours No Sepsis Action Taken by Nursing No Action Required 03/19/20 18:20 03/19/20 18:30 03/19/20 18:32 Temperature Temperature Source Pulse Rate 80 79 75 Pulse Rate [Right Finger] Pulse Rate from SpO2 Sensor Respiratory Rate 16 19 15 Blood Pressure 121/70 Blood Pressure [Right Arm] Blood Pressure Mean 82 Blood Pressure Mean [Right Arm] Pulse Oximetry Oxygen Delivery Method Sepsis Recent Fever Within 48 Hours Sepsis Action Taken by Nursing 03/19/20 18:40 03/19/20 18:45 03/19/20 18:50 Temperature Temperature Source Pulse Rate 75 74 73 Pulse Rate [Right Finger] Pulse Rate from SpO2 Sensor Respiratory Rate 16 19 16 Blood Pressure 119/72 Blood Pressure [Right Arm] Blood Pressure Mean 87 Blood Pressure Mean [Right Arm] Pulse Oximetry Oxygen Delivery Method Sepsis Recent Fever Within 48 Hours Sepsis Action Taken by Nursing 03/19/20 19:00 03/19/20 19:01 03/19/20 19:12 Temperature Temperature Source Pulse Rate 75 81 76 Pulse Rate [Right Finger] Pulse Rate from SpO2 Sensor 77 Respiratory Rate 15 22 12 Blood Pressure 112/68 Blood Pressure [Right Arm] Blood Pressure Mean 75 Blood Pressure Mean [Right Arm] Pulse Oximetry 95 Oxygen Delivery Method Sepsis Recent Fever Within 48 Hours Sepsis Action Taken by Nursing 03/19/20 19:13 03/19/20 19:20 03/19/20 19:30 Temperature Temperature Source Pulse Rate 75 78 80 Pulse Rate [Right Finger] Pulse Rate from SpO2 Sensor 75 76 81 Respiratory Rate 12 19 14 Blood Pressure 104/67 124/71 Blood Pressure [Right Arm] Blood Pressure Mean 70 77 Blood Pressure Mean [Right Arm] Pulse Oximetry 98 96 96 Oxygen Delivery Method Sepsis Recent Fever Within 48 Hours Sepsis Action Taken by Nursing 03/19/20 19:31 03/19/20 19:32 03/19/20 19:40 Temperature Temperature Source Pulse Rate 78 77 77 Pulse Rate [Right Finger] 78 Pulse Rate from SpO2 Sensor 78 78 77 Respiratory Rate 19 19 17 Blood Pressure 103/72 Blood Pressure [Right Arm] 103/72 Blood Pressure Mean 78 Blood Pressure Mean [Right Arm] 82 Pulse Oximetry 97 97 96 Oxygen Delivery Method Sepsis Recent Fever Within 48 Hours Sepsis Action Taken by Nursing 03/19/20 19:50 03/19/20 20:00 03/19/20 20:01 Temperature Temperature Source Pulse Rate 78 74 78 Pulse Rate [Right Finger] Pulse Rate from SpO2 Sensor 79 74 78 Respiratory Rate 16 21 16 Blood Pressure 115/59 L Blood Pressure [Right Arm] Blood Pressure Mean 73 Blood Pressure Mean [Right Arm] Pulse Oximetry 95 95 96 Oxygen Delivery Method Sepsis Recent Fever Within 48 Hours Sepsis Action Taken by Nursing 03/19/20 20:10 03/19/20 20:20 03/19/20 20:30 Temperature Temperature Source Pulse Rate 76 72 81 Pulse Rate [Right Finger] Pulse Rate from SpO2 Sensor 75 73 Respiratory Rate 20 20 18 Blood Pressure 129/64 Blood Pressure [Right Arm] Blood Pressure Mean 77 Blood Pressure Mean [Right Arm] Pulse Oximetry 94 97 Oxygen Delivery Method Sepsis Recent Fever Within 48 Hours Sepsis Action Taken by Nursing 03/19/20 20:31 03/19/20 20:40 03/19/20 20:50 Temperature Temperature Source Pulse Rate 76 77 86 Pulse Rate [Right Finger] Pulse Rate from SpO2 Sensor Respiratory Rate 15 20 22 Blood Pressure Blood Pressure [Right Arm] Blood Pressure Mean Blood Pressure Mean [Right Arm] Pulse Oximetry Oxygen Delivery Method Sepsis Recent Fever Within 48 Hours Sepsis Action Taken by Nursing 03/19/20 21:00 03/19/20 21:01 03/19/20 21:10 Temperature Temperature Source Pulse Rate 76 75 75 Pulse Rate [Right Finger] Pulse Rate from SpO2 Sensor Respiratory Rate 24 19 15 Blood Pressure 112/76 Blood Pressure [Right Arm] Blood Pressure Mean 81 Blood Pressure Mean [Right Arm] Pulse Oximetry Oxygen Delivery Method Sepsis Recent Fever Within 48 Hours Sepsis Action Taken by Nursing Laboratory Data Result diagrams: 03/19/20 19:11 03/19/20 19:11 Lab Results 03/19/20 03/19/20 03/19/20 Range/Units 19:11 19:11 19:11 WBC 12.39 H (4.8-10.8) K/uL RBC 3.45 L (4.7-6.1) M/uL Hgb 10.5 L (14.0-18.0) g/dL Hct 33.7 L (42-52) % MCV 97.7 (80-100) fL MCH 30.4 (25-34) pg MCHC 31.2 L (32-36) g/dL RDW Std Deviation 48.3 H (36.4-46.3) fL RDW Coeff of Odette 13.6 (11.5-14.5) % Plt Count 241 (130-400) K/uL MPV 9.8 (7.4-10.4) fL Immature Gran % (Auto) 0.3 % Neut % (Auto) 78.1 % Lymph % (Auto) 10.2 % [place] % (Auto) 10.4 % Eos % (Auto) 0.9 % Baso % (Auto) 0.1 % Neut # (Auto) 9.68 H (1.4-6.5) K/uL Lymph # (Auto) 1.26 (1.2-3.4) K/uL [place] # (Auto) 1.29 H (0.11-0.59) K/uL Eos # (Auto) 0.11 (0-0.5) K/uL Baso # (Auto) 0.01 (0-0.2) K/uL Immature Gran # (Auto) 0.04 H (0.00-0.02) K/uL PT 11.4 (9.0-12.0) Seconds INR 1.1 (0.9-1.1) APTT 24.2 (21.0-31.0) Seconds PTT Ratio 0.9 Sodium 140 (136-145) mmol/L Potassium 4.1 (3.5-5.1) mmol/L Chloride 111 H (98-107) mmol/L Carbon Dioxide 23 (21-32) mmol/L Anion Gap 6.0 (3-11) BUN 26 H (7-18) mg/dl Creatinine 1.04 (0.6-1.4) mg/dl Est Cr Clr Drug Dosing 61.3 ml/min Est GFR ( Amer) 82.2 Est GFR (Non-Af Amer) 70.9 BUN/Creatinine Ratio 24.8 H (10-20) Glucose 119 H (70-99) mg/dl Calcium 7.7 L (8.5-10.1) mg/dl Total Bilirubin 0.3 (0.2-1) mg/dl AST 15 (15-37) U/L ALT 18 (12-78) U/L Alkaline Phosphatase 49 (45-117) U/L Troponin I < 0.015 (0-0.045) ng/ml Total Protein 5.2 L (6.4-8.2) gm/dl Albumin 2.7 L (3.4-5.0) gm/dl Globulin 2.5 (2.5-4.0) gm/dl Albumin/Globulin Ratio 1.1 (0.9-2) Blood Type Antibody Screen 03/19/20 Range/Units 19:20 WBC (4.8-10.8) K/uL RBC (4.7-6.1) M/uL Hgb (14.0-18.0) g/dL Hct (42-52) % MCV (80-100) fL MCH (25-34) pg MCHC (32-36) g/dL RDW Std Deviation (36.4-46.3) fL RDW Coeff of Odette (11.5-14.5) % Plt Count (130-400) K/uL MPV (7.4-10.4) fL Immature Gran % (Auto) % Neut % (Auto) % Lymph % (Auto) % [place] % (Auto) % Eos % (Auto) % Baso % (Auto) % Neut # (Auto) (1.4-6.5) K/uL Lymph # (Auto) (1.2-3.4) K/uL [place] # (Auto) (0.11-0.59) K/uL Eos # (Auto) (0-0.5) K/uL Baso # (Auto) (0-0.2) K/uL Immature Gran # (Auto) (0.00-0.02) K/uL PT (9.0-12.0) Seconds INR (0.9-1.1) APTT (21.0-31.0) Seconds PTT Ratio Sodium (136-145) mmol/L Potassium (3.5-5.1) mmol/L Chloride (98-107) mmol/L Carbon Dioxide (21-32) mmol/L Anion Gap (3-11) BUN (7-18) mg/dl Creatinine (0.6-1.4) mg/dl Est Cr Clr Drug Dosing ml/min Est GFR ( Amer) Est GFR (Non-Af Amer) BUN/Creatinine Ratio (10-20) Glucose (70-99) mg/dl Calcium (8.5-10.1) mg/dl Total Bilirubin (0.2-1) mg/dl AST (15-37) U/L ALT (12-78) U/L Alkaline Phosphatase (45-117) U/L Troponin I (0-0.045) ng/ml Total Protein (6.4-8.2) gm/dl Albumin (3.4-5.0) gm/dl Globulin (2.5-4.0) gm/dl Albumin/Globulin Ratio (0.9-2) Blood Type O Positive Antibody Screen NEGATIVE Discharge Plan Visit Data Chief Complaint: GI Assessment ED Provider: Amari Encinas Discharge Problem: Acute GI bleeding, Hemorrhoids, Anemia, Post-op bleeding Forms Stand Alone Forms: My [facility] Prescriptions Prescriptions: No Action famotidine [Pepcid] 40 mg tablet 40 mg PO DAILY RF: 0 fluticasone propion-salmeterol 113-14 mcg/actuation aerosol powdr breath activated 1 inh INHALATION DAILY RF: 0 ciprofloxacin HCl 500 mg tablet 500 mg PO UD RF: 0 multivitamin Tablet 1 tab PO QAM RF: 0 cetirizine-pseudoephedrine [Zyrtec-D] 5-120 mg Tablet Extended Release 12 Hr 1 tab PO Q12H PRN (Reason: Allergic Symptoms) RF: 0 budesonide [Rhinocort Allergy] 32 mcg/actuation [place],Non-Aerosol 2 spray INTRANASAL HS RF: 0 atorvastatin 40 mg tablet 40 mg PO HS RF: 0 sulfasalazine 500 mg tablet 500 mg PO TID RF: 0 cyanocobalamin (vitamin B-12) [Vitamin B-12] 1,000 mcg Tablet 1,000 mcg PO QPM RF: 0 clopidogrel 75 mg tablet 75 mg PO QAM RF: 0 aspirin 81 mg Tablet,Delayed Release (Dr/Ec) 81 mg PO HS RF: 0 tamsulosin 0.4 mg capsule 0.4 mg PO QPM RF: 0 ferrous sulfate 325 mg (65 mg iron) Tablet 325 mg PO QAM RF: 0 esomeprazole magnesium [Nexium] 40 mg Capsule,Delayed Release(Dr/Ec) 40 mg PO QAM RF: 0 losartan 25 mg tablet 25 mg PO QAM RF: 0 nitroglycerin 0.4 mg Tablet, Sublingual 0.4 mg sublingual UD PRN (Reason: Chest Pain) RF: 0 metoprolol succinate 25 mg tablet extended release 24 hr 25 mg PO HS RF: 0 albuterol sulfate 90 mcg/actuation HFA aerosol inhaler 2 puff inhalation QID PRN (Reason: Shortness Of Breath Or Wheezing) RF: 0 folic acid 800 mcg Tablet 0.8 mg PO QAM RF: 0 carboxymethylcellulose-glycern 0.5-0.9 % Drops 1 drp OPHTHALMIC (EYE) QID RF: 0 diclofenac sodium [Voltaren] 1 % gel 2 g topical TID PRN (Reason: Pain) RF: 0 Fiber Select Gummies 2-100 gram-mcg Tablet,Chewable 2 tab PO BID RF: 0 Ocuvite Adult 50 Plus 250-5-1 mg Capsule 1 cap PO QAM RF: 0 cholecalciferol (vitamin D3) [Vitamin D3] 125 mcg (5,000 unit) tablet 5,000 unit PO DAILY RF: 0 Discharge Problem: Hemorrhoids Qualifiers: Hemorrhoid type: unspecified Qualified Code(s): K64.9 - Unspecified hemorrhoids Anemia Qualifiers: Anemia type: unspecified type Qualified Code(s): D64.9 - Anemia, unspecified Post-op bleeding Qualifiers: Surgical complication system/body Area: subcutaneous tissue Procedure type: non-dermatologic Qualified Code(s): L76.22 - Postprocedural hemorrhage of skin and subcutaneous tissue following other procedure
[2020-03-19 19:25] LABS: Basophils # (auto) 0.01 K/uL (0-0.2); Basophils % (auto) 0.1 %; Eosinophils # (auto) 0.11 K/uL (0-0.5); Eosinophils % (auto) 0.9 %; Hematocrit (blood only) 33.7 % (42-52); Hemoglobin 10.5 g/dL (14.0-18.0); Immature Granulocytes # (auto) 0.04 K/uL (0.00-0.02); Immature Granulocytes % (auto) 0.3 %; Lymphocytes # (auto) 1.26 K/uL (1.2-3.4); Lymphocytes % (auto) 10.2 %; Mean Corpuscular Hemoglobin 30.4 pg (25-34); Mean Corpuscular Hgb Conc 31.2 g/dL (32-36); Mean Corpuscular Volume 97.7 fL (80-100); Mean Platelet Volume 9.8 fL (7.4-10.4); Monocytes # (auto) 1.29 K/uL (0.11-0.59); Monocytes % (auto) 10.4 %; Neutrophils # (auto) 9.68 K/uL (1.4-6.5); Neutrophils % (auto) 78.1 %; Platelet Count 241 K/uL (130-400); RDW Coefficient of Variation 13.6 % (11.5-14.5); RDW Standard Deviation 48.3 fL (36.4-46.3); Red Blood Count 3.45 M/uL (4.7-6.1); White Blood Count 12.39 K/uL (4.8-10.8)
[2020-03-19 19:38] LABS: INR 1.1 (0.9-1.1); Partial Thromboplastin Ratio 0.9; Partial Thromboplastin Time 24.2 Seconds (21.0-31.0); Prothrombin Time 11.4 Seconds (9.0-12.0)
[2020-03-19 20:04] LABS: Alanine Aminotransferase 18 U/L (12-78); Albumin Level 2.7 gm/dl (3.4-5.0); Aspartate Aminotransferase 15 U/L (15-37); BUN Creatinine Ratio 24.8 (10-20); Blood Urea Nitrogen 26 mg/dl (7-18); Calcium 7.7 mg/dl (8.5-10.1); Carbon Dioxide 23 mmol/L (21-32); Chloride 111 mmol/L (98-107); Creatinine Clr Calc Pharmacy 61.3 ml/min; Est GFR (African American) 82.2; Est GFR (Non-African American) 70.9; Glucose 119 mg/dl (70-99); Potassium 4.1 mmol/L (3.5-5.1); Sodium 140 mmol/L (136-145)
[2020-03-19 20:09] LABS: Albumin Globulin Ratio 1.1 (0.9-2); Alkaline Phosphatase 49 U/L (45-117); Bilirubin,Total 0.3 mg/dl (0.2-1); Globulin 2.5 gm/dl (2.5-4.0); Total Protein 5.2 gm/dl (6.4-8.2); Troponin I < 0.015 ng/ml (0-0.045)
[2020-03-19] MEDS ORDERED: DICLOFENAC SOD 1% GEL 100 GM TUBE EXT PRN (22:51)
[2020-03-19] MEDS ORDERED: NITROGLYCERIN SL 0.4 MG/TAB TAB SL PRN ×2 (22:51)
[2020-03-19] MEDS ORDERED: ACETAMINOPHEN 325 MG TAB PO PRN (22:51)
[2020-03-19] MEDS ORDERED: ONDANSETRON INJ 2 MG/ML 2 ML VIAL IV PRN (22:51)
[2020-03-19] MEDS ORDERED: ALBUTEROL HFA 8 GM INHALER INH PRN (22:51)
--- NOTE | 2020-03-20 | History and Physical Report ---
DATE OF ADMISSION: 03/19/2020 CHIEF COMPLAINT: Rectal bleed. HISTORY OF PRESENT ILLNESS: This is a 74-year-old male with past medical history significant for hyperlipidemia, allergic rhinitis, hypertension, GERD, history of ulcerative colitis, gastroenteritis,SBO, history of BPH, CAD,history of generalized anxiety presents with rectal bleed. The patient is status post ultrasound-guided prostate biopsy done in [place] today. After the procedure, he had a small amount of blood in the urine; he had couple of biopsies in the past and it did not alarm him, and after that he micturated a couple of times and there was no blood in it.But in the afternoon he had a bowel movement which was bloody and he had 6 bowel movements which were bloody, so he came to the ER. In the ER, he had 1 more bloody bowel movement, but since last 2 hours it seems to be subsided. Denies any abdominal pain, no fever, no chills, no nausea, no chest pain, no shortness of breath, no cough, no headache, no earache, no runny nose, no sore throat. Currently resting comfortably and hemodynamically stable. ALLERGIES: No known drug allergies. PAST MEDICAL HISTORY: As mentioned above. PAST SURGICAL HISTORY: Colonoscopy, cardiac stents, paraesophageal hernia repair, prostate biopsy. FAMILY HISTORY: Significant for cancer, gallbladder disease, heart disease, hypertension. SOCIAL HISTORY: No smoking. Alcohol occasional. No drug use. Lives with the family. MEDICATIONS: The patient is on albuterol 2 puffs inhalation q.i.d. p.r.n., aspirin 81 mg p.o. at bedtime, atorvastatin 40 mg at bedtime,Rhinocort allergy 2 sprays intranasal at bedtime, Ocuvite 1 tablet in a.m., carboxymethylcellulose glycerin one drop ophthalmic in eye q.i.d., Zyrtec-D 1 tablet q. 12 hours p.r.n., vitamin D 5,000 units p.o. daily, Plavix 75 mg p.o. a.m., cyanocobalamin 1000 mcg p.o. a.m., diclofenac sodium 2 g topical t.i.d. p.r.n., Nexium 40 mg p.o. a.m., famotidine 40 mg daily, ferrous sulfate 325 mg p.o. a.m., fluticasone propionate/salmeterol 1 inhalation daily, folic acid 0.8 mg p.o. daily, Fiber Select gummies 2 tablets p.o. b.i.d., losartan 25 mg p.o. a.m., metoprolol succinate 25 mg at bedtime, multivitamin 1 tablet daily, nitroglycerin 0.4 mg sublingual p.r.n., sulfasalazine 500 mg p.o. t.i.d. p.r.n., Flomax 0.4 mg p.o. at bedtime. REVIEW OF SYSTEMS: As per HPI. Rest of the review of systems negative. PHYSICAL EXAMINATION: GENERAL: The patient is alert and oriented, not in acute distress. VITAL SIGNS: Temperature 36.9, pulse 75, respiratory rate 15, blood pressure 112/76, oxygen 97% on room air. HEENT: No pallor, no icterus. Pupils are round and reactive to light. NECK: No JVD, no neck masses. CARDIOVASCULAR: S1, S2 heard, regular rate and rhythm, no murmur, no gallop. RESPIRATORY SYSTEM: Normal AP diameter. No accessory muscle use. No wheezing, no crackles. ABDOMEN: Soft, bowel sounds present, nontender. No distention. CENTRAL NERVOUS SYSTEM: Cranial nerves II-XII grossly intact. Nonfocal. EXTREMITIES: No edema, no erythema. LABORATORY DATA: WBC is 12.3, hemoglobin 10.5, hematocrit 33.7, platelets 241. PT 11.4, INR 1.1, APTT 24.2. Sodium 140, potassium 4.1, chloride 111, bicarbonate 23, BUN 26, creatinine 1.04, serum glucose 119, calcium 7.7, total bilirubin 0.3, AST 15, ALT 18, alkaline phosphatase 49, troponin I less than 0.015. EKG: Normal sinus rhythm at a rate of 78, no significant change was found. ASSESSMENT AND PLAN: This is a 74-year-old male who presents with rectal bleed post prostate biopsy. 1. Rectal bleed post prostate biopsy, history of ulcerative colitis. Hemoglobin dropped from 13.7 on 03/07/2020 to 10.5. Since last 2 hours, he did not have any more bowel movement. We will monitor in med/surg tele. We will follow the labs, repeat labs in a.m. Blood consent obtained. Will keep him n.p.o., IV fluids. Consult urology and GI for further recommendations. 2. Ulcerative colitis, continue sulfasalazine. 3. History of coronary artery disease status post stents. Continue Toprol-XL, statin. Hold aspirin and Plavix for now. 4. Hypertension. Continue losartan, metoprolol succinate withholding parameters. 5. History of anemia. Continue ferrous sulfate. 6. Gastroesophageal reflux disease. Continue Nexium and famotidine. 7. Hyperlipidemia, on statin. 8. Deep vein thrombosis prophylaxis, sequential compression devices for now. 9. Disposition: Closely monitor in the med/surg tele. Level 1 full code. Expect to discharge home and follow with his family doctor. ROSALEE
[2020-03-20] MEDS: SODIUM CHLORIDE 0.9% 1000ML 1,000 ML IV SCH ×2 (01:03→08:17)
[2020-03-20 06:40] LABS: Basophils # (auto) 0.01 K/uL (0-0.2); Basophils % (auto) 0.1 %; Eosinophils # (auto) 0.15 K/uL (0-0.5); Eosinophils % (auto) 1.7 %; Hematocrit (blood only) 30.3 % (42-52); Immature Granulocytes # (auto) 0.03 K/uL (0.00-0.02); Immature Granulocytes % (auto) 0.3 %; Lymphocytes # (auto) 1.82 K/uL (1.2-3.4); Mean Corpuscular Hemoglobin 31.3 pg (25-34); Mean Platelet Volume 9.4 fL (7.4-10.4); Monocytes # (auto) 1.21 K/uL (0.11-0.59); Neutrophils # (auto) 5.45 K/uL (1.4-6.5); Neutrophils % (auto) 62.9 %; Platelet Count 226 K/uL (130-400); RDW Coefficient of Variation 13.6 % (11.5-14.5); Red Blood Count 3.19 M/uL (4.7-6.1); White Blood Count 8.67 K/uL (4.8-10.8)
[2020-03-20 07:16] LABS: BUN Creatinine Ratio 25.5 (10-20); Calcium 7.6 mg/dl (8.5-10.1); Creatinine Clr Calc Pharmacy 67.7 ml/min; Est GFR (African American) 94.1; Est GFR (Non-African American) 81.2; Magnesium 2.1 mg/dl (1.8-2.4)
[2020-03-20] MEDS: sulfaSALAzine 500 MG TABLET PO SCH ×3 (08:10→16:55)
--- NOTE | 2020-03-20 08:12 | Urology Consultation ---
Date of Consultation March 20, 2020 Assessment & Plan (1) Acute GI bleeding: Bleeding after prostate biopsy Seems to have resolved now Has follow-up scheduled with his urologist in [place] Please call if further issues during this hospitalization History of Present Illness Attending Physician: Chaya Nunez MD History of Present Illness 74-year-old gentleman who underwent a prostate biopsy in [place] yesterday He began to experience some significant bleeding in his stools after returning home He subsequently had 5-6 bowel movements of "pure blood" He reports that this resolved overnight he had a bowel movement with minimal blood and feels much better today No hematuria at present No discomfort Feels that he is essentially back to normal Allergies Allergy/AdvReac Type Severity Reaction Status Date / Time No Known Drug Allergies Allergy Unknown Verified 02/20/20 23:16 Home Medications Home Medications Medication Instructions Recorded Confirmed Type C,E,zinc,copper [id number] 1 cap PO QAM 03/15/19 03/19/20 History [Ocuvite Adult 50 Plus] albuterol sulfate 2 puff INHALATION QID PRN 03/15/19 03/19/20 History aspirin 81 mg PO HS 03/15/19 03/19/20 History atorvastatin 40 mg PO HS 03/15/19 03/19/20 History budesonide [Rhinocort Allergy] 2 spray INTRANASAL HS 03/15/19 03/19/20 History carboxymethylcellulose-glycern 1 drp OPHTHALMIC (EYE) QID 03/15/19 03/19/20 History cetirizine-pseudoephedrine 1 tab PO Q12H PRN 03/15/19 03/19/20 History [Zyrtec-D] clopidogrel 75 mg PO QAM 03/15/19 03/19/20 History cyanocobalamin (vitamin B-12) 1,000 mcg PO QPM 03/15/19 03/19/20 History [Vitamin B-12] diclofenac sodium [Voltaren] 2 g TOPICAL TID PRN 03/15/19 03/19/20 History esomeprazole magnesium [Nexium] 40 mg PO QAM 03/15/19 03/19/20 History ferrous sulfate 325 mg PO QAM 03/15/19 03/19/20 History folic acid 0.8 mg PO QAM 03/15/19 03/19/20 History inulin-chromium picolinate [Fiber 2 tab PO BID 03/15/19 03/19/20 History Select Gummies] losartan 25 mg PO QAM 03/15/19 03/19/20 History metoprolol succinate 25 mg PO HS 03/15/19 03/19/20 History multivitamin 1 tab PO QAM 03/15/19 03/19/20 History nitroglycerin 0.4 mg SUBLINGUAL UD PRN 03/15/19 03/19/20 History sulfasalazine 500 mg PO TID 03/15/19 03/19/20 History tamsulosin 0.4 mg PO QPM 03/15/19 03/19/20 History cholecalciferol (vitamin D3) 125 5,000 unit PO DAILY tab 10/26/19 03/19/20 History mcg (5,000 unit) tablet famotidine 40 mg tablet 40 mg PO DAILY 10/26/19 03/19/20 History fluticasone propion-salmeterol 1 inh INHALATION DAILY 02/20/20 03/19/20 History ciprofloxacin HCl 500 mg PO UD 03/19/20 03/19/20 History Patient History Medical History Chest pain Esophageal hernia Esophageal reflux Hemorrhoids (Acute) Mitral valve disorder Pneumonia (Resolved) SBO (small bowel obstruction) Severe sleep apnea Ulcerative colitis (Chronic) Surgical History H/O heart artery stent Family History Other No pertinent family history Social History Preferred Language: Khmer Communication Ability: Effective Visual Impairment: No Limitations Hearing Ability: Normal Emergency Dispatcher Required: No Beliefs That Will Affect Care: None marital status: marital status details: Current Living Situation: Spouse Other Information That Helps Us Care for You: No Feels Safe at Home: Yes Safety Concerns: Feels Safe At This Time Smoking Status: Never smoker Do You Dip or Chew Tobacco: No ; Hx Alcohol Use: No Hx Substance Use: No Review of Systems Constitutional: no fever, no chills and no fatigue Eyes: no worsening vision Ear, Nose, Mouth, Throat: no facial pain and no pain with swallowing Respiratory: no cough and no dyspnea Cardiovascular: no chest pain and no palpitations Gastrointestinal: no abdominal pain, no nausea and no vomiting Musculoskeletal: no back pain Integumentary: no rash and no urticaria Neurologic: no gait abnormality and no unsteadiness Psychiatric: no behavioral changes and no depression Endocrine: no fatigue Physical Exam Constitutional: well developed and well nourished Neck: neck nontender Respiratory: normal respiratory effort; no respiratory distress and does not use accessory muscles Cardiovascular: Rate/Rhythm: regular rate Vessels: radial pulses present Extremities: no edema Gastrointestinal (Abdomen): Inspection/Auscultation: abdomen normal to inspection Percussion/Palpation: abdomen soft; abdomen nontender and no guarding Musculoskeletal: Head/Neck/Chest: normocephalic and head atraumatic Extremities: extremities normal to inspection Skin: no rashes and no lesions Trauma: no evidence of skin trauma Neurologic: awake; not obtunded Speech / Cognition: normal speech Motor/Sensory: no tremor Psychiatric: Orientation: alert and oriented x 3 Genitourinary: no CVA tenderness Lymphatic: no lymphadenopathy Results & Data Vital Signs (Past 12 Hours) Vital Signs Temp Pulse Pulse Pulse Resp BP BP 03/20/20 07:46 36.9 C 99 H 20 123/72 03/20/20 07:44 77 03/20/20 01:44 36.5 C 78 19 130/74 03/19/20 22:52 36.5 C 88 16 03/19/20 22:40 88 16 03/19/20 22:31 75 13 03/19/20 22:30 76 19 122/73 03/19/20 22:20 77 19 03/19/20 22:10 75 12 03/19/20 22:01 77 13 03/19/20 22:00 75 18 110/73 03/19/20 21:50 78 18 03/19/20 21:40 78 18 03/19/20 21:31 73 13 03/19/20 21:30 75 13 118/70 03/19/20 21:20 80 22 03/19/20 21:10 75 15 03/19/20 21:01 75 19 03/19/20 21:00 76 24 112/76 03/19/20 20:50 86 22 03/19/20 20:40 77 20 03/19/20 20:31 76 15 03/19/20 20:30 81 18 129/64 03/19/20 20:20 72 20 BP Pulse Ox 03/20/20 07:46 96 03/20/20 07:44 03/20/20 01:44 97 03/19/20 22:52 118/76 95 03/19/20 22:40 03/19/20 22:31 03/19/20 22:30 03/19/20 22:20 03/19/20 22:10 03/19/20 22:01 03/19/20 22:00 03/19/20 21:50 03/19/20 21:40 03/19/20 21:31 03/19/20 21:30 03/19/20 21:20 03/19/20 21:10 03/19/20 21:01 03/19/20 21:00 03/19/20 20:50 03/19/20 20:40 03/19/20 20:31 03/19/20 20:30 03/19/20 20:20 97 PG Care Time/CCT Total # of Minutes Spent Total Time Spent with Patient: Total time spent is greater than 50% in coordination of care (as documented) at patient's floor/unit and/or counseling patient: Coding Level of Care Code 67373 Inpt Consult Level 3 Diagnoses Acute GI bleeding K92.2
[2020-03-20] MEDS: ARTIFICIAL TEARS OP SCH ×3 (08:15→16:57)
[2020-03-20] MEDS ORDERED: LOSARTAN POTASSIUM 25 MG TAB PO SCH (09:00)
[2020-03-20] MEDS ORDERED: FAMOTIDINE 40 MG TABLET PO SCH (09:00)
[2020-03-20] MEDS ORDERED: FERROUS SULFATE 325 MG TAB PO SCH (09:00)
[2020-03-20] MEDS ORDERED: PSYLLIUM 58.6% POWDER PACKET PO SCH (09:00)
[2020-03-20] MEDS ORDERED: FLUTICASONE/VILANTEROL 200/25MCG 14 PUFFS/INHALER INH SCH (09:00)
[2020-03-20] MEDS ORDERED: MULTIVITAMIN TAB PO SCH (09:00)
[2020-03-20] MEDS ORDERED: FOLIC ACID 400 MCG TAB PO SCH (09:00)
[2020-03-20] MEDS ORDERED: PANTOprazole 40 MG TAB PO SCH (09:00)
--- NOTE | 2020-03-20 10:26 | Gastrointestinal Consultation ---
Date of Consultation March 20, 2020 Assessment & Plan (1) Anemia: (2) Post-op bleeding: Pt is a 74 y/o male admitted w rectal bleeding, started 2 hrs after his prostate bx yesterday. He was on Plavix but held this 7 days prior to biopsy as instructed. Rectal bleeding has resolved as of this AM. Blood ct remains stable overnight and abd exam is benign. Of note, he has hx of ulcerative colitis, on Sulfasalazine, follows w [facility]. He is up to date on his colonoscopy last done in 2019. No further GI plans for endoscopic eval during this admission as rectal bleeding likely related to prostate bx has resolved. He should f/u w Urology on DC. Continue f/u w [facility] for Ulcerative colitis management. Gi to sign off; pls recall prn Supervising Physician Co-Signing Physician Notes I have personally seen and examined the patient with KATY Mehta. Her note reflects my exam and findings. I agree with her impression and plan. Bleeding from prostate biopsies. Cont care as per primary team. Raymond Denny M.D. History of Present Illness Reason for Consultation: Rectal Bleeding Requesting Physician: Dr. Chaya Nunez Attending Physician: Dr. Raymond Denny History of Present Illness Pt is a 74 y/o male, who presented yesterday with rectal bleeding. He underwent prostate biopsy at [facility]. Had been off Plavix x 7 days as instructed. 2 hours after biopsy he started having BRBPR after eating lunch. Rectal bleeding continues throughout afternoon then decides to come to ED for further recs. Hgb down from normal to 10, stable overnight. He had a small BM midnight and then this AM. Stools are small, formed and by this AM, he no longer sees any blood in stools. He denies any abd pain, n/v ,CP, sob. Noted hx of UC, he follows w Dr. Menezes in [facility]. He is currently on Sulfasalazine for UC and last colonoscopy was in 2019. Denies hx of colorectal ca in family. He is on q2yr recall for colonoscopy screening. Allergies Allergy/AdvReac Type Severity Reaction Status Date / Time No Known Drug Allergies Allergy Unknown Verified 02/20/20 23:16 Home Medications Home Medications Medication Instructions Recorded Confirmed Type C,E,zinc,copper [id number] 1 cap PO QAM 03/15/19 03/19/20 History [Ocuvite Adult 50 Plus] albuterol sulfate 2 puff INHALATION QID PRN 03/15/19 03/19/20 History aspirin 81 mg PO HS 03/15/19 03/19/20 History atorvastatin 40 mg PO HS 03/15/19 03/19/20 History budesonide [Rhinocort Allergy] 2 spray INTRANASAL HS 03/15/19 03/19/20 History carboxymethylcellulose-glycern 1 drp OPHTHALMIC (EYE) QID 03/15/19 03/19/20 History cetirizine-pseudoephedrine 1 tab PO Q12H PRN 03/15/19 03/19/20 History [Zyrtec-D] clopidogrel 75 mg PO QAM 03/15/19 03/19/20 History cyanocobalamin (vitamin B-12) 1,000 mcg PO QPM 03/15/19 03/19/20 History [Vitamin B-12] diclofenac sodium [Voltaren] 2 g TOPICAL TID PRN 03/15/19 03/19/20 History esomeprazole magnesium [Nexium] 40 mg PO QAM 03/15/19 03/19/20 History ferrous sulfate 325 mg PO QAM 03/15/19 03/19/20 History folic acid 0.8 mg PO QAM 03/15/19 03/19/20 History inulin-chromium picolinate [Fiber 2 tab PO BID 03/15/19 03/19/20 History Select Gummies] losartan 25 mg PO QAM 03/15/19 03/19/20 History metoprolol succinate 25 mg PO HS 03/15/19 03/19/20 History multivitamin 1 tab PO QAM 03/15/19 03/19/20 History nitroglycerin 0.4 mg SUBLINGUAL UD PRN 03/15/19 03/19/20 History sulfasalazine 500 mg PO TID 03/15/19 03/19/20 History tamsulosin 0.4 mg PO QPM 03/15/19 03/19/20 History cholecalciferol (vitamin D3) 125 5,000 unit PO DAILY tab 10/26/19 03/19/20 History mcg (5,000 unit) tablet famotidine 40 mg tablet 40 mg PO DAILY 10/26/19 03/19/20 History fluticasone propion-salmeterol 1 inh INHALATION DAILY 02/20/20 03/19/20 History ciprofloxacin HCl 500 mg PO UD 03/19/20 03/19/20 History Patient History Medical History Chest pain Esophageal hernia Esophageal reflux Hemorrhoids (Acute) Mitral valve disorder Pneumonia (Resolved) SBO (small bowel obstruction) Severe sleep apnea Ulcerative colitis (Chronic) Surgical History H/O heart artery stent Family History Other No pertinent family history Social History Preferred Language: Lao Communication Ability: Effective Visual Impairment: No Limitations Hearing Ability: Normal 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 Beliefs That Will Affect Care: None marital status: marital status details: Current Living Situation: Spouse Other Information That Helps Us Care for You: No Feels Safe at Home: Yes Safety Concerns: Feels Safe At This Time Smoking Status: Never smoker Do You Dip or Chew Tobacco: No ; Hx Alcohol Use: No Hx Substance Use: No Review of Systems Review of Systems: All systems reviewed & are unremarkable except as noted in HPI & below Physical Exam Constitutional: WD/WN, vitals as above well groomed, cooperative and comfortable Eyes: PERRL, conjunctivae normal, anicteric sclerae ENMT: external ear and nose normal, oropharynx normal Respiratory: normal respiratory effort, lungs clear to auscultation Cardiovascular: RRR, no murmur, no edema Gastrointestinal (Abdomen): normal bowel sounds, soft, nontender, no hepatosplenomegaly Skin: no rashes, warm and dry no jaundice Psychiatric: A+Ox3, euthymic affect Lymphatic: no lymphedema Results & Data ([facility]) Vital Signs (Past 12 Hours) Vital Signs Temp Pulse Pulse Pulse Resp BP BP 03/20/20 07:46 36.9 C 99 H 20 123/72 03/20/20 07:44 77 03/20/20 01:44 36.5 C 78 19 130/74 03/19/20 22:52 36.5 C 88 16 06/30/20 22:40 88 16 03/19/20 22:31 75 13 03/19/20 22:30 76 19 122/73 BP Pulse Ox 03/20/20 07:46 96 03/20/20 07:44 03/20/20 01:44 97 03/19/20 22:52 118/76 95 03/19/20 22:40 03/19/20 22:31 03/19/20 22:30 (1) Anemia Anemia type: unspecified type Qualified Code(s): D64.9 - Anemia, unspecified (2) Post-op bleeding Procedure type: non-dermatologic Surgical complication system/body Area: subcutaneous tissue Qualified Code(s): L76.22 - Postprocedural hemorrhage of skin and subcutaneous tissue following other procedure
--- NOTE | 2020-03-20 14:59 | Electrocardiogram Report ---
Test Reason : Blood Pressure : / mmHG Vent. Rate : 078 BPM Atrial Rate : 078 BPM P-R Int : 152 ms QRS Dur : 078 ms QT Int : 370 ms P-R-T Axes : 024 -01 026 degrees QTc Int : 421 ms Normal sinus rhythm Normal ECG When compared with ECG of 20-FEB-2020 19:53, No significant change was found Confirmed by Dev Palomino ([id number]) on 03/20/2020 2:59:27 PM Referred By: REFERRED SELF Confirmed By:Dev Palomino
--- NOTE | 2020-03-20 15:35 | Hospitalist Progress Note ---
Date of Service March 20, 2020 Assessment & Plan (1) Acute GI bleeding: (2) Post-op bleeding: (3) Acute blood loss anemia: Possible related to status post ultrasound-guided prostate biopsy Hgb on admission 10.5, Hgb was 13.7 on 03/07 Hgb 10 today Had a normal bowel movement Gastro on board No plan for endoscopic eval during this admission as rectal bleeding likely related to prostate bx has resolved Urology on board recommended outpatient follow up Continue to hold plavix and aspirin for now Check CBC in 1 week Stable Ulcerative colitis continue sulfasalazine. Follow with [facility] History of coronary artery disease status post stents. Continue Toprol-XL, statin. Will resume aspirin tomorrow and Plavix on Wednesday if bleeding resolved Hypertension. Continue losartan, metoprolol succinate Stable Gastroesophageal reflux disease. Continue Nexium and famotidine. Hyperlipidemia Continue statin. Deep vein thrombosis prophylaxis On SCDS due to GI bleeding CODE STATUS FULL CODE Admission and Anticipated Discharge Date Admission Date: March 19, 2020 Subjective Pt was seen and examined Lying in bed with no distress Pt said that he feels fine He said that he does not have anymore blood stools he said that he had a normal bowel movement this morning He has been working in the hallway with no discomfort /dizziness Denies any chest pain, palpitation, dizziness and SOB Physical Exam Physical Exam: General- No acute distress Head- atraumatic Eyes- PERRL, EOMI, ENT- oropharynx clear Neck- supple, no JVD Lungs- clear to auscultation Heart- regular rhythm; no murmur Abdomen- normal bowel sounds, soft, nontender Extremities- no calf tenderness Neuro- alert, oriented x 3; PERRL, EOMI; no facial palsy; no dysarthria Skin- warm & dry Results & Data Results & Data ([facility]) Vital Signs (Past 12 Hours) Vital Signs Temp Pulse Pulse Resp BP Pulse Ox 03/20/20 15:00 36.7 C 82 18 110/64 94 03/20/20 11:42 36.6 C 84 20 120/76 94 03/20/20 07:46 36.9 C 99 H 20 123/72 96 03/20/20 07:44 77 (1) Post-op bleeding Procedure type: non-dermatologic Surgical complication system/body Area: subcutaneous tissue Qualified Code(s): L76.22 - Postprocedural hemorrhage of skin and subcutaneous tissue following other procedure
[2020-03-20] MEDS ORDERED: TAMSULOSIN HCL 0.4 MG CAP PO SCH (21:00)
[2020-03-20] MEDS ORDERED: METOPROLOL SUCC 25MG EXT REL TAB PO SCH (21:00)
[2020-03-20] MEDS ORDERED: BUDESONIDE AQ (RHINOCORT AQ) NASAL SPRAY 32 MCG SCH (21:00)
[2020-03-20] MEDS ORDERED: ATORVASTATIN 40 MG TAB PO SCH (21:00)
--- NOTE | 2020-03-23 09:02 | Discharge Summary ---
Date of Service March 20, 2020 Admission HPI Per Admitting Provider HISTORY OF PRESENT ILLNESS: This is a 74-year-old male with past medical history significant for hyperlipidemia, allergic rhinitis, hypertension, GERD, history of ulcerative colitis, gastroenteritis,SBO, history of BPH, CAD,history of generalized anxiety presents with rectal bleed. The patient is status post ultrasound-guided prostate biopsy done in [place] today. After the procedure, he had a small amount of blood in the urine; he had couple of biopsies in the past and it did not alarm him, and after that he micturated a couple of times and there was no blood in it.But in the afternoon he had a bowel movement which was bloody and he had 6 bowel movements which were bloody, so he came to the ER. In the ER, he had 1 more bloody bowel movement, but since last 2 hours it seems to be subsided. Denies any abdominal pain, no fever, no chills, no nausea, no chest pain, no shortness of breath, no cough, no headache, no earache, no runny nose, no sore throat. Currently resting comfortably and hemodynamically stable. Admission Exam Per Admitting Provider GENERAL: The patient is alert and oriented, not in acute distress. VITAL SIGNS: Temperature 36.9, pulse 75, respiratory rate 15, blood pressure 112/76, oxygen 97% on room air. HEENT: No pallor, no icterus. Pupils are round and reactive to light. NECK: No JVD, no neck masses. CARDIOVASCULAR: S1, S2 heard, regular rate and rhythm, no murmur, no gallop. RESPIRATORY SYSTEM: Normal AP diameter. No accessory muscle use. No wheezing, no crackles. ABDOMEN: Soft, bowel sounds present, nontender. No distention. CENTRAL NERVOUS SYSTEM: Cranial nerves II-XII grossly intact. Nonfocal. EXTREMITIES: No edema, no erythema. Principal Diagnosis (1) Acute GI bleeding: (2) Post-op bleeding: (3) Acute blood loss anemia: (4) Ulcerative colitis (5) History of coronary artery disease status post stents. (6) Hypertension. (7) Gastroesophageal reflux disease. (8) Hyperlipidemia Discharge Exam General- No acute distress Head- atraumatic Eyes- PERRL, EOMI, ENT- oropharynx clear Neck- supple, no JVD Lungs- clear to auscultation Heart- regular rhythm; no murmur Abdomen- normal bowel sounds, soft, nontender Extremities- no calf tenderness Neuro- alert, oriented x 3; PERRL, EOMI; no facial palsy; no dysarthria Skin- warm & dry Discharge Data Allergies Allergy/AdvReac Type Severity Reaction Status Date / Time No Known Drug Allergies Allergy Unknown Verified 02/20/20 23:16 Consultations 03/19/20 20:55 ED Decision to Admit Stat 03/19/20 22:51 Consult Case Management - Discharge Planning Routine 03/20/20 08:00 Consult Gastroenterology Routine Consult Urology Routine Hospital Course (1) Acute GI bleeding: (2) Post-op bleeding: (3) Acute blood loss anemia: Possible related to status post ultrasound-guided prostate biopsy Hgb on admission 10.5, Hgb was 13.7 on 03/07 Hgb 10 today Had a normal bowel movement Gastro on board No plan for endoscopic eval during this admission as rectal bleeding likely related to prostate bx has resolved Urology on board recommended outpatient follow up Continue to hold plavix and aspirin for now Check CBC in 1 week Stable Ulcerative colitis continue sulfasalazine. Follow with [facility] History of coronary artery disease status post stents. Continue Toprol-XL, statin. Will resume aspirin tomorrow and Plavix on Wednesday if bleeding resolved Hypertension. Continue losartan, metoprolol succinate Stable Gastroesophageal reflux disease. Continue Nexium and famotidine. Hyperlipidemia Continue statin. Deep vein thrombosis prophylaxis On SCDS due to GI bleeding CODE STATUS FULL CODE Total Time Total Time Spent Total Time Spent (In Minutes): 35 minutes Total Time Includes: Examination of the Patient, Discharge Planning, Medication Reconciliation, Communication With Other Providers and Other Discharge Plan Discharge Items Patient Disposition: Home - Self-Care Reason For Visit: RECTAL BLEED Discharge Diagnosis: (1) Acute GI bleeding: (2) Post-op bleeding: (3) Acute blood loss anemia: (4) Ulcerative colitis (5) History of coronary artery disease status post stents. (6) Hypertension. (7) Gastroesophageal reflux disease. (8) Hyperlipidemia Activity: Resume your previous activity Non-emergency contact: Primary Care Provider and Ui Developer Call non-emergency contact if: you have any medication questions Follow-up/Referrals: Cherelle To [Primary Care Provider] - Diet: Heart Healthy Addtl Attending Provider Instructions: Follow up with your primary care provider Dr. To in 1 week ( Please call to schedule the follow up appointment ) Check CBC in 1 week to monitor your hemoglobin Ok to resume aspirin tomorrow if bleeding resolves Call your physician on Wednesday about when to resume the Plavix if there is no bleeding Please avoid any NSAID for now such as Motrin, Aleve, Naproxen, Ibuprofen, Advil, ... Pending Studies at Discharge: No Stand-Alone Forms: My [facility], Smoking Cessation Medications and DC Order Prescriptions: Continued famotidine [Pepcid] 40 mg tablet 40 mg PO DAILY RF: 0 fluticasone propion-salmeterol 113-14 mcg/actuation aerosol powdr breath activated 1 inh INHALATION DAILY RF: 0 ciprofloxacin HCl 500 mg tablet 500 mg PO UD RF: 0 multivitamin Tablet 1 tab PO QAM RF: 0 cetirizine-pseudoephedrine [Zyrtec-D] 5-120 mg Tablet Extended Release 12 Hr 1 tab PO Q12H PRN (Reason: Allergic Symptoms) RF: 0 budesonide [Rhinocort Allergy] 32 mcg/actuation [place],Non-Aerosol 2 spray INTRANASAL HS RF: 0 atorvastatin 40 mg tablet 40 mg PO HS RF: 0 sulfasalazine 500 mg tablet 500 mg PO TID RF: 0 cyanocobalamin (vitamin B-12) [Vitamin B-12] 1,000 mcg Tablet 1,000 mcg PO QPM RF: 0 clopidogrel 75 mg tablet 75 mg PO QAM RF: 0 aspirin 81 mg Tablet,Delayed Release (Dr/Ec) 81 mg PO HS RF: 0 tamsulosin 0.4 mg capsule 0.4 mg PO QPM RF: 0 ferrous sulfate 325 mg (65 mg iron) Tablet 325 mg PO QAM RF: 0 esomeprazole magnesium [Nexium] 40 mg Capsule,Delayed Release(Dr/Ec) 40 mg PO QAM RF: 0 losartan 25 mg tablet 25 mg PO QAM RF: 0 nitroglycerin 0.4 mg Tablet, Sublingual 0.4 mg sublingual UD PRN (Reason: Chest Pain) RF: 0 metoprolol succinate 25 mg tablet extended release 24 hr 25 mg PO HS RF: 0 albuterol sulfate 90 mcg/actuation HFA aerosol inhaler 2 puff inhalation QID PRN (Reason: Shortness Of Breath Or Wheezing) RF: 0 folic acid 800 mcg Tablet 0.8 mg PO QAM RF: 0 carboxymethylcellulose-glycern 0.5-0.9 % Drops 1 drp OPHTHALMIC (EYE) QID RF: 0 diclofenac sodium [Voltaren] 1 % gel 2 g topical TID PRN (Reason: Pain) RF: 0 Fiber Select Gummies 2-100 gram-mcg Tablet,Chewable 2 tab PO BID RF: 0 Ocuvite Adult 50 Plus 250-5-1 mg Capsule 1 cap PO QAM RF: 0 cholecalciferol (vitamin D3) [Vitamin D3] 125 mcg (5,000 unit) tablet 5,000 unit PO DAILY RF: 0 Discharge Orders: Discharge Order (Routine); Ordered 03/20/20 Ordered By: Chaya Nunez Admission Data Admit Date/Time: 03/19/20 21:11 Attending Provider: Chaya Nunez Admit Provider: Jb Henriquez Primary Care Provider: Cherelle To Other Providers: Jb Henriquez ; Karson Jose Jessica R. ; Belle Gonzales ; Corinna Mathtews ; Akira Dunbar ; Jasmyn Hwnag ; Rima Tavarez ; Sanaz Best ; Dennis Hernandez ; Raymond Denny ; Arlene Luna ; Lupe Wetzel ; Stephanie Rojo ; Geraldine Reid ; Erik Dumont ; Easton Ocampo ; Sammy Stearns ; Abdullahi Longo I. ; Manolo Luna ; Malorie Bolanos ; Lotus Schreiber ; Camron Yun ; Madie Dugan ; Kaitlin Cotton ; Damon Mancini ; Susu Murphy ; Mohamud Cameron Other Interventions: Discharge Summary Assessment (RN) Last Done: 03/20/20 17:42 DC Date/Time DO NOT enter until pt leaves facility: 03/20/20 18:49
== END 2020-03-20 18:49 | disposition home or self-care (01) | DRG 920 ==
LOC: ED 17:58 → EDINP 21:11 → SUATTDRO 21:11 → 2W 03-20 01:13

== ENCOUNTER 2023-11-01 18:50 | Inpatient (IN) ==
[2023-11-01 20:53] LABS: Basophils # (auto) 0.05 K/uL (0.00-0.20); Basophils % (auto) 0.3 %; Eosinophils # (auto) 0.13 K/uL (0.00-0.50); Eosinophils % (auto) 0.8 %; Hematocrit (blood only) 44.8 % (42.0-52.0); Hemoglobin 15.5 g/dl (14.0-18.0); Immature Granulocytes # (auto) 0.08 K/uL (0.01-0.20); Immature Granulocytes % (auto) 0.5 %; Lymphocytes # (auto) 1.06 K/uL (1.20-3.40); Lymphocytes % (auto) 6.8 %; Mean Corpuscular Hemoglobin 32.8 pg (25.0-34.0); Mean Corpuscular Hgb Conc 34.6 g/dL (32.0-36.0); Mean Corpuscular Volume 94.7 fL (80.0-100.0); Mean Platelet Volume 9.9 fL (9.4-12.4); Monocytes # (auto) 1.56 K/uL (0.11-0.59); Neutrophils # (auto) 12.73 K/uL (1.40-6.50); Neutrophils % (auto) 81.6 %; Platelet Count 241 K/uL (130-400); RDW Coefficient of Variation 13.7 % (11.5-14.5); Red Blood Count 4.73 M/uL (4.70-6.10); White Blood Count 15.61 K/ul (4.8-10.8)
[2023-11-01 20:59] LABS: Appearance Urine Clear (Clear); Bilirubin Urine Negative (Negative); Blood Urine Negative (Negative); Color Urine Dark Yellow; Glucose Urine UA Negative (Negative); Ketones Urine Negative (Negative); Leukocyte Esterase Urine Negative (Negative); Nitrite Urine Negative (Negative); Protein Urine Negative (Negative); Specific Gravity Urine 1.023 (1.000-1.030); Urobilinogen Urine Negative (Negative)
[2023-11-01 21:16] LABS: Albumin Globulin Ratio 1.7 (0.9-2); Albumin Level 4.4 gm/dl (3.4-5.0); BUN Creatinine Ratio 18.4 (10-20); Bilirubin,Total 0.6 mg/dl (0.2-1.0); Calcium 9.3 mg/dl (8.6-10.3); Creatinine Clr Calc Pharmacy 71.3 ml/min; Est GFR (African American) 96.5 ml/min; Est GFR (Non-African American) 83.2 ml/min; Globulin 2.6 gm/dl (2.5-4.0); Potassium 4.3 mmol/L (3.5-5.1)
--- NOTE | 2023-11-01 21:34 | Emergency Department Note ---
Impression & Plan SBO (small bowel obstruction), Abdominal pain, Leukocytosis ED Provider Note NAME: SIMON DAVENPORT AGE: 78 SEX: M : 1945 ARRIVES VIA: Walk-In INFORMANT: Patient ED PROVIDER(S): Amari Encinas DO CHIEF COMPLAINT: abdominal pain HPI: Patient is a 78-year-old male with a past medical history of CAD, hypertension, hyperlipidemia, pneumonia, ulcerative colitis, diverticulitis, and small bowel obstruction who presents to the ER for abdominal pain which is periumbilical. He notes this started yesterday at the [place] green party when he ate some celery. He notes sometimes he eats things and this occurs. He denies any headache or change in vision. No chest pain or shortness of breath. No dysuria, urgency, or frequency. He notes his belly feels upset and the pain has been waxing and waning in severity. No dysuria, urgency or frequency. He has had some loose stools today. Pain is worse with eating. ADDITIONAL HISTORY OBTAINED: Per HPI Chronic Medical/Social Conditions Affecting Care: Per HPI PAST MEDICAL HISTORY:See Below PAST SURGICAL HISTORY:See Below FAMILY HISTORY:See Below SOCIAL HISTORY:See Below HOME MEDICATIONS:See Below ALLERGIES:See Below VITALS:See Below PHYSICAL EXAMINATION: GENERAL: Sitting up in bed, alert, well appearing, well nourished, no distress, non-toxic EYE EXAM: normal conjunctiva. OROPHARYNX: mucous membranes are moist NECK: supple, no nuchal rigidity, no adenopathy, non-tender LUNGS: Clear to auscultation. Normal chest wall mechanics HEART: no murmurs, S1 normal and S2 normal ABDOMEN: abdomen soft, non-tender, normo-active bowel sounds, no masses, no rebound or guarding. UPPER EXTREMITIES: upper extremities are grossly normal. LOWER EXTREMITIES: No pitting edema. NEURO EXAM: Normal sensorium, cranial nerves II-XII grossly intact, normal speech, no gross weakness of arms, no gross weakness of legs. MEDICAL DECISION MAKING: Patient is a 78-year-old male with a past medical history of ulcerative colitis and small bowel obstruction who presents to the ER for abdominal pain. IV was established blood work was obtained. Labs show a leukocytosis of 15,000. No significant anemia. BMP with LFTs bilirubin and lipase is unremarkable. UA was negative. CT abdomen pelvis suggest a bowel obstruction. I discussed this case with Dylan from surgery and he agreed with admission to the hospitalist. I discussed case with Dr. Lawrence Cuellar and he expressed understanding and will evaluate the patient. Patient was given IV fluids, morphine and Zofran. He did feel significantly better. I do favor this likely a partial obstruction as he is still having output and having no vomiting. Consults/Care Managements Discussions: Per MDM Triage Nursing notes reviewed. Limited review of prior medical records performed Vital Signs: reviewed and remarkable for hypertension Differential diagnosis: Differential diagnoses includes but is not limited to gastritis, peptic ulcer disease, GERD, gallbladder disease, pancreatitis, small bowel obstruction, appendicitis, diverticulitis, hernia, urinary tract infection, torsion, perforation, trauma, infectious. ER treatment provided: See below Diagnostics interpreted by me include EKG and cardiac monitoring as listed below: -Cardiac Monitoring: An order was placed for continuous cardiac monitoring. The monitor shows a rate of 80 with sinus rhythm. -ECG: none -Laboratory studies:Interpreted by me as stated above in MDM and shown below. Imaging studies: Xrays: As interpreted by me:none CT abdomen pelvis per my preliminary interpretation showed air-fluid levels CTs show: CT abdomen pelvis per radiology suggest a small bowel obstruction Procedures:none Critical Care: None Past Med/Surg History Medical History CAD (coronary artery disease) stents x2 (2005, 2007) Osteoarthritis Anemia Melanoma s/p excision (face) Anxiety Hyperlipidemia Hypertension Asthma stable Severe sleep apnea CPAP SBO (small bowel obstruction) recurrent, most recent 02/2020 Hemorrhoids Esophageal hernia Esophageal reflux Ulcerative colitis Surgical History History of esophagogastroduodenoscopy (EGD) History of colonoscopy H/O prostate biopsy PSA under surveillance (09/2020) History of tooth extraction 3 WTE Hx of bilateral cataract extraction History of cardiac cath Family History Father Colon cancer Social History Smoking Status: Unknown if ever smoked Second Hand Exposure: No; Do You Dip or Chew Tobacco: No; Hx Alcohol Use: Yes Alcohol type: beer Alcohol Intake Frequency Comment: Socially Hx Substance Use: No Preferred Language: Estonian Communication Ability: Effective Visual Impairment: No Limitations Hearing Ability: Normal [employer] 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: No Beliefs That Will Affect Care: None marital status: marital status details: Current Living Situation: Spouse Feels Safe at Home: Yes Assistive Devices: Glasses Allergies Allergies Allergy/AdvReac Type Severity Reaction Status Date / Time watermelon Allergy Severe THROAT Verified 11/01/23 22:18 CLOSES, ITCHING cat dander Allergy Intermediate SNEEZING, Verified 11/01/23 22:18 CONGESTION dog dander Allergy Intermediate SNEEZING, Verified 11/01/23 22:18 CONGESTION grass pollen Allergy Intermediate SNEEZING, Verified 11/01/23 22:18 CONGESTION ragweed pollen Allergy Intermediate SNEEZING, Verified 11/01/23 22:18 CONGESTION tree and shrub pollen Allergy Intermediate SNEEZING, Verified 11/01/23 22:18 CONGESTION house dust Allergy Mild Sneezing Verified 11/01/23 22:18 mold Allergy Mild Sneezing Verified 11/01/23 22:18 Home Meds Home Medications Medication Instructions Recorded Confirmed aspirin 81 mg tablet,delayed 81 mg PO HS 03/15/19 11/01/23 release atorvastatin 40 mg tablet 40 mg PO 03/15/19 11/01/23 carboxymethylcellulose 0.5 1 drp ophthalmic (eye) TID 03/15/19 11/01/23 %-glycerin 0.9 % eye drops cetirizine 5 mg-pseudoephedrine ER 1 tab PO Q12H PRN Allergic Symptoms 03/15/19 11/01/23 120 mg tablet,extended release,12hr (Zyrtec-D) clopidogrel 75 mg tablet 75 mg PO QAM 03/15/19 11/01/23 cyanocobalamin (vitamin B-12) 1,000 mcg PO QAM 03/15/19 11/01/23 1,000 mcg tablet (Vitamin B-12) esomeprazole magnesium 40 mg 40 mg PO QAM 03/15/19 11/01/23 capsule,delayed release (Nexium) ferrous sulfate 325 mg (65 mg 325 mg PO QAM 03/15/19 11/01/23 iron) tablet folic acid 800 mcg tablet 0.8 mg PO 4XWK 03/15/19 11/01/23 metoprolol succinate 25 mg 25 mg PO HS 03/15/19 11/01/23 tablet,extended release 24 hr multivitamin 1 tab PO QAM 03/15/19 11/01/23 nitroglycerin 0.4 mg sublingual 0.4 mg sublingual UD PRN Chest Pain 03/15/19 11/01/23 tablet sulfasalazine 500 mg tablet 500 mg PO TID 03/15/19 11/01/23 tamsulosin 0.4 mg capsule 0.4 mg PO QPM 03/15/19 11/01/23 cholecalciferol (vitamin D3) 125 5,000 unit PO QAM 10/26/19 11/01/23 mcg (5,000 unit) tablet (Vitamin D3) famotidine 40 mg tablet (Pepcid) 20 mg PO HS 10/26/19 11/01/23 acetaminophen 500 mg tablet 500 - 1,000 mg PO DIRECTED PRN 11/14/20 11/01/23 (Tylenol Extra Strength) Pain trazodone 50 mg tablet 50 mg PO HS 11/14/20 11/01/23 budesonide 32 mcg/actuation nasal 2 spray intranasal HS 11/01/23 11/01/23 spray diclofenac sodium 1 % topical gel 2 g topical TID PRN Pain 11/01/23 11/01/23 finasteride 5 mg tablet 5 mg PO QAM 11/01/23 11/01/23 fluticasone 100 mcg-salmeterol 50 1 inh inhalation BID 11/01/23 11/01/23 mcg/dose blistr powdr for inhalation (Wixela Inhub) losartan 50 mg tablet 50 mg PO QAM 11/01/23 11/01/23 Results & Data (ED) Vital Signs Vital Signs - 24 hr 11/01/23 18:55 11/01/23 18:58 11/01/23 22:17 Temperature 36.4 C L Temperature Source Temporal Artery Scan Pulse Rate 87 78 Pulse Rate [Apical] Pulse Rhythm [Apical] Pulse Strength [Apical] Respiratory Rate 20 Respiratory Effort / Characteristics Non-Labored Respiratory Depth Normal Respiratory Pattern Blood Pressure Blood Pressure [Right Arm] 196/117 H Blood Pressure Mean Blood Pressure Mean [Right Arm] 143 Pulse Oximetry 95 Oxygen Delivery Method Room Air Sepsis Recent Fever Within 48 Hours No Sepsis New/Unexplained Change in Mental Status No Sepsis Action Taken by Nursing No Action Required 11/01/23 22:23 11/01/23 23:00 11/01/23 23:30 Temperature Temperature Source Pulse Rate 79 80 Pulse Rate [Apical] 76 Pulse Rhythm [Apical] Regular Pulse Strength [Apical] Normal Respiratory Rate 14 23 20 Respiratory Effort / Characteristics Non-Labored Respiratory Depth Normal Respiratory Pattern Regular Blood Pressure 151/89 H 160/90 H Blood Pressure [Right Arm] 163/91 H Blood Pressure Mean 109 113 Blood Pressure Mean [Right Arm] 115 Pulse Oximetry 94 93 94 Oxygen Delivery Method Room Air Room Air Room Air Sepsis Recent Fever Within 48 Hours Sepsis New/Unexplained Change in Mental Status Sepsis Action Taken by Nursing Laboratory Data 11/01/23 20:25 11/01/23 20:25 Lab Results 11/01/23 11/01/23 Range/Units 20:25 20:38 WBC 15.61 H (4.8-10.8) K/ul RBC 4.73 (4.70-6.10) M/uL Hgb 15.5 (14.0-18.0) g/dl Hct 44.8 (42.0-52.0) % MCV 94.7 (80.0-100.0) fL MCH 32.8 (25.0-34.0) pg MCHC 34.6 (32.0-36.0) g/dL RDW Std Deviation 48.0 H (36.4-46.3) fL RDW Coeff of [place] 13.7 (11.5-14.5) % Plt Count 241 (130-400) K/uL MPV 9.9 (9.4-12.4) fL Immature Gran % (Auto) 0.5 % Neut % (Auto) 81.6 % Lymph % (Auto) 6.8 % [place] % (Auto) 10.0 % Eos % (Auto) 0.8 % Baso % (Auto) 0.3 % Neut # (Auto) 12.73 H (1.40-6.50) K/uL Lymph # (Auto) 1.06 L (1.20-3.40) K/uL [place] # (Auto) 1.56 H (0.11-0.59) K/uL Eos # (Auto) 0.13 (0.00-0.50) K/uL Baso # (Auto) 0.05 (0.00-0.20) K/uL Immature Gran # (Auto) 0.08 (0.01-0.20) K/uL Sodium 136 (136-145) mmol/L Potassium 4.3 (3.5-5.1) mmol/L Chloride 103 (98-107) mmol/L Carbon Dioxide 23 (21-32) mmol/L Anion Gap 10 (3-11) BUN 16 (6-23) mg/dl Creatinine 0.87 (0.6-1.4) mg/dl Est Cr Clr Drug Dosing 71.3 ml/min Est GFR ( Amer) 96.5 ml/min Est GFR (Non-Af Amer) 83.2 ml/min BUN/Creatinine Ratio 18.4 (10-20) Glucose 148 H (70-99(Fasting)) mg/dl Calcium 9.3 (8.6-10.3) mg/dl Total Bilirubin 0.6 (0.2-1.0) mg/dl AST 21 (13-39) U/L ALT 21 (7-52) U/L Alkaline Phosphatase 61 (34-104) U/L Total Protein 7.0 (6.0-8.3) gm/dl Albumin 4.4 (3.4-5.0) gm/dl Globulin 2.6 (2.5-4.0) gm/dl Albumin/Globulin Ratio 1.7 (0.9-2) Lipase 5 L (11-82) U/L Urine Color Dark Yellow Urine Appearance Clear (Clear) Urine pH 5.0 (4.5-7.5) Ur Specific [place] 1.023 (1.000-1.030) Urine Protein Negative (Negative) Urine Glucose (UA) Negative (Negative) Urine Ketones Negative (Negative) Urine Blood Negative (Negative) Urine Nitrite Negative (Negative) Urine Bilirubin Negative (Negative) Urine Urobilinogen Negative (Negative) Ur Leukocyte Esterase Negative (Negative) Administered Medications Discontinued Medications Sodium Chloride (Nss) 500 mls @ 999 mls/hr IV .Q31M ONE Stop: 11/01/23 22:01 Last Infusion: 11/01/23 23:14 Dose: Infused Documented By: Admin: 11/01/23 22:18 Dose: 999 mls/hr Documented By: HONEY Ioversol (Optiray 320 500ml) 91 ml IV ONCE ONE Stop: 11/01/23 22:02 Last Admin: 11/01/23 22:01 Dose: 91 ml Documented By: PRISCA Morphine Sulfate (Morphine Sulfate 4 Mg/Ml 1 Ml Carp\Vial) 4 mg IV NOW STA Stop: 11/01/23 21:32 Last Admin: 11/01/23 22:17 Dose: 4 mg Documented By: HONEY Ondansetron HCl (Ondansetron Inj 2 Mg/Ml 2 Ml Vial) 4 mg IV NOW STA Stop: 11/01/23 21:32 Last Admin: 11/01/23 22:17 Dose: 4 mg Documented By: HONEY Imaging Data Radiologist's Impression: Abdomen/Pelvis CT 11/01/23 21:22 Exam(s): CT ABDOMEN + PELVIS With Contrast IV Amt: 91ML OPTIRAY 320 EXAM: CT Abdomen and Pelvis With Intravenous Contrast CLINICAL HISTORY: Reason for exam: abd pain hxt chrons. TECHNIQUE: Axial computed tomography images of the abdomen and pelvis with intravenous contrast. CTDI is 24.24 mGy and DLP is 1141.79 mGy-cm. Automated exposure control was utilized for the study. A dose lowering technique was utilized adhering to the principles of ALARA. CONTRAST: Patient received 91ML OPTIRAY 320 of IV contrast COMPARISON: 02/20/2020. FINDINGS: Lung bases: There is minimal atelectasis at the right middle lobe and right lower lobe, otherwise normal lung bases. Heart: Unremarkable. No cardiomegaly. No significant pericardial effusion. Normal cardiac size with coronary artery calcifications . Mediastinum: Moderate hiatal hernia. Remainder of the stomach unremarkable. ABDOMEN: Liver: Low-attenuation structure within the right liver lobe measuring 6.5 mm, too small to characterize and likely benign such as cyst in the absence of known neoplasm and given stability in the interval. Gallbladder and bile ducts: Unremarkable. No calcified stones. No ductal dilation. Pancreas: Unremarkable. No mass. No ductal dilation. Spleen: Unremarkable. No splenomegaly. Adrenals: Unremarkable. No mass. Kidneys and ureters: Unremarkable. No solid mass. No hydronephrosis. Stomach and bowel: Significant circumferential thickening of the pelletier of the distal including the ileocecal valve concerning for distal enteritis/Crohn's disease. There is mild distention of the small bowel loops cephalad to this level reaching a maximum diameter of 3.3 cm concerning for small bowel obstruction, combination of findings suggestive of zone of transition at this level. The descending colon is decompressed. Nonspecific borderline thickening of the wall, cannot exclude mild colitis. PELVIS: Appendix: Normal appendix . Bladder: Unremarkable. No mass. Reproductive: Mild prostate enlargement. ABDOMEN and PELVIS: Intraperitoneal space: Unremarkable. No free air. No significant fluid collection. Bones/joints: Advanced multilevel degenerative disease of the spine, bilateral SI joints and hips. No acute fracture. No dislocation. Soft tissues: Small bilateral fat-containing inguinal hernias versus scrotal lipomas. Vasculature: Atherosclerotic disease of aorta with no aneurysm. Lymph nodes: Unremarkable. No enlarged lymph nodes. IMPRESSION: 1. Findings suggestive of recurrent Crohn's disease involving the distal ileum/ileocecal valve with cephalad small bowel dilatation raising the concern of component of inflammatory process (with stricture not excluded) contributing to cephalad obstruction, zone of transition at this level. Clinical correlation recommended. 2. Moderate hiatal hernia. 3. No acute appendicitis. Electronically signed by: Kaylee Mcguire MD 11/01/23 23:21 PM Discharge Plan Visit Data Chief Complaint: Abdominal Pain Stated Complaint: ADDOMINAL PAIN, HAS REFLUX AND CHRONS ED Provider: Amari Encinas Discharge Problem: SBO (small bowel obstruction), Abdominal pain, Leukocytosis Forms Stand Alone Forms: [place] [employer] Prescriptions Prescriptions: No Action acetaminophen [Tylenol Extra Strength] 500 mg tablet 500 - 1,000 mg PO DIRECTED PRN (Reason: Pain) trazodone 50 mg tablet 50 mg PO HS famotidine [Pepcid] 40 mg tablet 20 mg PO HS multivitamin Tablet 1 tab PO QAM cetirizine-pseudoephedrine [Zyrtec-D] 5-120 mg Tablet Extended Release 12 Hr 1 tab PO Q12H PRN (Reason: Allergic Symptoms) atorvastatin 40 mg tablet 40 mg PO HS sulfasalazine 500 mg tablet 500 mg PO TID cyanocobalamin (vitamin B-12) [Vitamin B-12] 1,000 mcg Tablet 1,000 mcg PO QAM clopidogrel 75 mg tablet 75 mg PO QAM aspirin 81 mg Tablet,Delayed Release (Dr/Ec) 81 mg PO HS tamsulosin 0.4 mg capsule 0.4 mg PO QPM ferrous sulfate 325 mg (65 mg iron) Tablet 325 mg PO QAM esomeprazole magnesium [Nexium] 40 mg Capsule,Delayed Release(Dr/Ec) 40 mg PO QAM nitroglycerin 0.4 mg Tablet, Sublingual 0.4 mg sublingual UD PRN (Reason: Chest Pain) metoprolol succinate 25 mg tablet extended release 24 hr 25 mg PO HS folic acid 800 mcg Tablet 0.8 mg PO 4XWK Rx Instructions: SUN, MON, WED, & FRI. carboxymethylcellulose-glycern 0.5-0.9 % Drops 1 drp OPHTHALMIC (EYE) TID cholecalciferol (vitamin D3) [Vitamin D3] 125 mcg (5,000 unit) tablet 5,000 unit PO QAM budesonide [Rhinocort Allergy] 32 mcg/actuation [place],Non-Aerosol 2 spray INTRANASAL HS Rx Instructions: administer into each nostril fluticasone propion-salmeterol [Wixela Inhub] 100-50 mcg/dose blister with device 1 inh INHALATION BID finasteride 5 mg tablet 5 mg PO QAM diclofenac sodium [Voltaren] 1 % Gel 2 g TOPICAL TID PRN (Reason: Pain) Rx Instructions: APPLY TO JOINT FOR PAIN. losartan 50 mg tablet 50 mg PO QAM Referrals Referrals: Cherelle To [Primary Care Provider] - Discharge Problem: Abdominal pain Qualifiers: Abdominal location: unspecified location Qualified Code(s): R10.9 - Unspecified abdominal pain Leukocytosis Qualifiers: Leukocytosis type: unspecified Qualified Code(s): D72.829 - Elevated white blood cell count, unspecified
[2023-11-01] MEDS: OPTIRAY 320 500ml IV ONE (22:01)
[2023-11-01] MEDS: ONDANSETRON INJ 2 MG/ML 2 ML VIAL IV STA (22:17)
[2023-11-01] MEDS: MoRPHine SULFATE 4 MG/ML 1 ML CARP\\VIAL IV STA (22:17)
[2023-11-01] MEDS: SODIUM CHLORIDE 0.9% 500 ML IV ONE (22:18)
--- NOTE | 2023-11-01 23:22 | CT Scan Report ---
Exam(s): CT ABDOMEN + PELVIS With Contrast IV Amt: 91ML OPTIRAY 320 EXAM: CT Abdomen and Pelvis With Intravenous Contrast CLINICAL HISTORY: Reason for exam: abd pain hxt chrons. TECHNIQUE: Axial computed tomography images of the abdomen and pelvis with intravenous contrast. CTDI is 24.24 mGy and DLP is 1141.79 mGy-cm. Automated exposure control was utilized for the study. A dose lowering technique was utilized adhering to the principles of ALARA. CONTRAST: Patient received 91ML OPTIRAY 320 of IV contrast COMPARISON: 02/20/2020. FINDINGS: Lung bases: There is minimal atelectasis at the right middle lobe and right lower lobe, otherwise normal lung bases. Heart: Unremarkable. No cardiomegaly. No significant pericardial effusion. Normal cardiac size with coronary artery calcifications . Mediastinum: Moderate hiatal hernia. Remainder of the stomach unremarkable. ABDOMEN: Liver: Low-attenuation structure within the right liver lobe measuring 6.5 mm, too small to characterize and likely benign such as cyst in the absence of known neoplasm and given stability in the interval. Gallbladder and bile ducts: Unremarkable. No calcified stones. No ductal dilation. Pancreas: Unremarkable. No mass. No ductal dilation. Spleen: Unremarkable. No splenomegaly. Adrenals: Unremarkable. No mass. Kidneys and ureters: Unremarkable. No solid mass. No hydronephrosis. Stomach and bowel: Significant circumferential thickening of the pelletier of the distal including the ileocecal valve concerning for distal enteritis/Crohn's disease. There is mild distention of the small bowel loops cephalad to this level reaching a maximum diameter of 3.3 cm concerning for small bowel obstruction, combination of findings suggestive of zone of transition at this level. The descending colon is decompressed. Nonspecific borderline thickening of the wall, cannot exclude mild colitis. PELVIS: Appendix: Normal appendix . Bladder: Unremarkable. No mass. Reproductive: Mild prostate enlargement. ABDOMEN and PELVIS: Intraperitoneal space: Unremarkable. No free air. No significant fluid collection. Bones/joints: Advanced multilevel degenerative disease of the spine, bilateral SI joints and hips. No acute fracture. No dislocation. Soft tissues: Small bilateral fat-containing inguinal hernias versus scrotal lipomas. Vasculature: Atherosclerotic disease of aorta with no aneurysm. Lymph nodes: Unremarkable. No enlarged lymph nodes. IMPRESSION: 1. Findings suggestive of recurrent Crohn's disease involving the distal ileum/ileocecal valve with cephalad small bowel dilatation raising the concern of component of inflammatory process (with stricture not excluded) contributing to cephalad obstruction, zone of transition at this level. Clinical correlation recommended. 2. Moderate hiatal hernia. 3. No acute appendicitis. Electronically signed by: Kaylee Mcguire MD 11/01/23 23:21 PM
--- NOTE | 2023-11-01 23:57 | Surgery Consultation ---
Date of Consultation November 01, 2023 Assessment & Plan (1) Small bowel obstruction: I discussed with the treating physician in the emergency department the patient is being admitted on the hospital service. From surgical perspective we recommend the following: Implement n.p.o. status Provide analgesics Provide antiemetics Provide IV fluid for hydration Follow serial labs Follow serial exams I discussed with the patient that due to his underlying inflammatory bowel disease would be preferable to treat him in a conservative manner as outlined above. At the present time the patient is afebrile, normotensive, and does not have tachycardia. He does have leukocytosis but he does not have acute kidney injury. I therefore feel conservative measures are warranted at this time. I also discussed with the patient that we will await the input from the medical service as the patient may benefit from intravenous steroids that may help with any inflammation contributing to his bowel obstruction. Additional recommendations to be forthcoming based on his clinical course as unfolds Supervising Physician Co-Signing Physician Notes I personally saw and evaluated the patient with Juancho Cristina PA-C and agree with the assessment and plan 78 yo male with Crohn's flare and pSBO No abdominal pain CT images and results were personally viewed and interpreted by myself No plans for any surgical intervention Agree with GI input, treatment is typically steroids He is tolerating clear liquids, if continues to do well can advance in the AM History of Present Illness Reason for Consultation: Partial small bowel obstruction secondary to Crohn's History of Present Illness This is a 78-year-old male with an underlying history of inflammatory bowel disease. Patient says that he was diagnosed with ulcerative colitis approximately 30 years ago. He notes that he was also diagnosed with Crohn's disease approximately 3 years ago. Patient notes that for his inflammatory bowel disease he takes Entyvio injections every 6 weeks. He says he has been compliant with this medication has not missed any doses. Regarding patient's inflammatory bowel disease he says that he has had multiple small bowel obstructions most recently approximate 4 to 5 years ago. He says that he has never required any surgical intervention for any of these obstructions. He presented to [facility] emergency department today as he developed some abdominal discomfort in a generalized fashion which raises concern that he may have been obstructed again. He denies any episodes of emesis and does not feel nauseated. He denies any fevers, shakes, or chills. Patient says that he has had 3 bowel movements today and the most recent one was more loose than usual. He says he continues to pass small amounts of flatus. He does report that he has had prior abdominal surgeries in the form of a laparoscopic hiatal hernia repair. He also notes that on his most recent colonoscopy the possibility of a colonic stricture was raised. Since arrival to hospital patient has had labs and imaging which independent reviewed. He did have a CT scan of the abdomen pelvis. This showed the patient had findings concerning for recurrent Crohn's disease involving primarily the distal ileum/ileocecal valve region. There was some small bowel dilatation proximal to this raising the concern of an inflammatory process with inability to exclude a stricture. This was also concerning for at least a partial small bowel obstruction. There is no free intraperitoneal air. There is no free intraperitoneal fluid. Labs include a CBC her white blood cell count was elevated 15.6. Hemoglobin and hematocrit along with platelet count were normal. Chemistry profile showed sodium and potassium along with BUN and creatinine were normal. There is no elevation of patient's LFTs or lipase. Urinalysis was not indicative of infection. At the time my interview patient was resting comfortably in bed he was in no distress. Allergies Allergy/AdvReac Type Severity Reaction Status Date / Time watermelon Allergy Severe THROAT Verified 11/01/23 22:18 CLOSES, ITCHING cat dander Allergy Intermediate SNEEZING, Verified 11/01/23 22:18 CONGESTION dog dander Allergy Intermediate SNEEZING, Verified 11/01/23 22:18 CONGESTION grass pollen Allergy Intermediate SNEEZING, Verified 11/01/23 22:18 CONGESTION ragweed pollen Allergy Intermediate SNEEZING, Verified 11/01/23 22:18 CONGESTION tree and shrub pollen Allergy Intermediate SNEEZING, Verified 11/01/23 22:18 CONGESTION house dust Allergy Mild Sneezing Verified 11/01/23 22:18 mold Allergy Mild Sneezing Verified 11/01/23 22:18 Home Medications Medication Instructions Recorded Confirmed Type aspirin 81 mg tablet,delayed 81 mg PO HS 03/15/19 11/01/23 History release atorvastatin 40 mg tablet 40 mg PO HS 03/15/19 11/01/23 History carboxymethylcellulose 0.5 1 drp ophthalmic (eye) TID 03/15/19 11/01/23 History %-glycerin 0.9 % eye drops cetirizine 5 mg-pseudoephedrine ER 1 tab PO Q12H PRN Allergic Symptoms 03/15/19 11/01/23 History 120 mg tablet,extended release,12hr (Zyrtec-D) clopidogrel 75 mg tablet 75 mg PO QAM 03/15/19 11/01/23 History cyanocobalamin (vitamin B-12) 1,000 mcg PO QAM 03/15/19 11/01/23 History 1,000 mcg tablet (Vitamin B-12) esomeprazole magnesium 40 mg 40 mg PO QAM 03/15/19 11/01/23 History capsule,delayed release (Nexium) ferrous sulfate 325 mg (65 mg 325 mg PO QAM 03/15/19 11/01/23 History iron) tablet folic acid 800 mcg tablet 0.8 mg PO 4XWK 03/15/19 11/01/23 History metoprolol succinate 25 mg 25 mg PO HS 03/15/19 11/01/23 History tablet,extended release 24 hr multivitamin 1 tab PO QAM 03/15/19 11/01/23 History nitroglycerin 0.4 mg sublingual 0.4 mg sublingual UD PRN Chest Pain 03/15/19 11/01/23 History tablet sulfasalazine 500 mg tablet 500 mg PO TID 03/15/19 11/01/23 History tamsulosin 0.4 mg capsule 0.4 mg PO QPM 03/15/19 11/01/23 History cholecalciferol (vitamin D3) 125 5,000 unit PO QAM 10/26/19 11/01/23 History mcg (5,000 unit) tablet (Vitamin D3) famotidine 40 mg tablet (Pepcid) 20 mg PO HS 10/26/19 11/01/23 History acetaminophen 500 mg tablet 500 - 1,000 mg PO DIRECTED PRN 11/14/20 11/01/23 History (Tylenol Extra Strength) Pain trazodone 50 mg tablet 50 mg PO HS 11/14/20 11/01/23 History budesonide 32 mcg/actuation nasal 2 spray intranasal HS 11/01/23 11/01/23 History spray diclofenac sodium 1 % topical gel 2 g topical TID PRN Pain 11/01/23 11/01/23 History finasteride 5 mg tablet 5 mg PO QAM 11/01/23 11/01/23 History fluticasone 100 mcg-salmeterol 50 1 inh inhalation BID 11/01/23 11/01/23 History mcg/dose blistr powdr for inhalation (Grayson Reyes) losartan 50 mg tablet 50 mg PO QAM 11/01/23 11/01/23 History Patient History Medical History CAD (coronary artery disease) stents x2 (2005, 2007) Osteoarthritis Anemia Melanoma s/p excision (face) Anxiety Hyperlipidemia Hypertension Asthma stable Severe sleep apnea CPAP SBO (small bowel obstruction) recurrent, most recent 02/2020 Hemorrhoids Esophageal hernia Esophageal reflux Ulcerative colitis Surgical History History of esophagogastroduodenoscopy (EGD) History of colonoscopy H/O prostate biopsy PSA under surveillance (09/2020) History of tooth extraction 3 WTE Hx of bilateral cataract extraction History of cardiac cath Family History Father Colon cancer Social History Smoking Status: Never smoker Second Hand Exposure: No; Do You Dip or Chew Tobacco: No; Hx Alcohol Use: No Hx Substance Use: No Preferred Language: Comoran Communication Ability: Effective Visual Impairment: No Limitations Hearing Ability: Normal Development Technologist Required: No Beliefs That Will Affect Care: None marital status: marital status details: Current Living Situation: Spouse Feels Safe at Home: Yes Safety Concerns: Feels Safe At This Time Assistive Devices: CPAP and Glasses Review of Systems Constitutional: no fever and no chills Eyes: + corrective lenses Ear, Nose, Mouth, Throat: no ear pain Respiratory: no cough and no dyspnea Cardiovascular: no chest pain Gastrointestinal: as per Subjective / HPI Genitourinary: no dysuria Musculoskeletal: no back pain Integumentary: no rash Neurologic: no localized weakness Physical Exam Constitutional: WD/WN, vitals as above Eyes: no conjunctival abnormality ENMT: Ears: no hearing impairment and no external ear abnormality Mouth: no oropharynx abnormality Neck: + trachea not midline Respiratory: normal respiratory effort; no respiratory distress and no labored breathing Cardiovascular: Rate/Rhythm: regular rate and regular rhythm Gastrointestinal (Abdomen): Abdomen is soft with minimal distention. Bowel sounds are present. There is no rebound tenderness or guarding. There is minimal pain with palpation at the time of my exam Musculoskeletal: No calf tenderness Skin: no rashes Neurologic: moves all extremities Psychiatric: A+Ox3, euthymic affect Results & Data Vital Signs (Past 12 Hours) Vital Signs Temp Pulse Pulse Resp BP BP Pulse Ox 11/01/23 23:00 79 23 151/89 H 93 11/01/23 22:23 76 14 163/91 H 94 11/01/23 22:17 78 11/01/23 18:58 196/117 H 11/01/23 18:55 36.4 C L 87 20 95 O2 Del Method 11/01/23 23:00 Room Air 11/01/23 22:23 Room Air 11/01/23 22:17 11/01/23 18:58 11/01/23 18:55 Room Air PG Care Time/CCT Total # of Minutes Spent Total Time Spent with Patient: Total time spent is greater than 50% in coordination of care (as documented) at patient's floor/unit and/or counseling patient: Coding Level of Care Code 20602 INT INP/OBS CARE 3/75MIN Diagnoses Small bowel obstruction K56.609
[2023-11-02 00:25] LABS: Magnesium 1.9 mg/dl (1.7-2.4)
[2023-11-02] MEDS ORDERED: methylPREDNISolone 20 MG in SYRINGE 0 ML IV STA (00:28)
--- NOTE | 2023-11-02 00:28 | History & Physical Report ---
Date of Service November 02, 2023 Assessment & Plan (1) Small bowel obstruction: Plan: Secondary to IBD flareup hx CAD status post stent hypertension, slightly elevated secondary to discomfort hyperlipidemia, on statin Rx GERD, stable on PPI DM 2 diet-controlled, well-controlled as of recent hemoglobin A1c of 6.25 July 2023 RADHA on CPAP Medical telemetry given elevated BP and potential need for IV beta-dani Titrate home beta-dani Analgesia, Bowel rest Solu-Medrol, GI consult for possible IBD flareup General Surgery consult Re: SBO (Patient already seen by provider at the ER.) NGT insertion for decompression if with emesis Hold Plavix for now given potential need for surgery Basal bolus insulin adjusted for n.p.o. status, ISS BG goal 1 10-1 40 DVT prophylaxis per Lovenox subcu Full code Text document was generated using [employer] voice recognition software. It may contain grammatical or spelling errors. Kindly contact undersigned for clarification of any documentation item in question. History of Present Illness Chief Complaint: Abdominal pain Primary Care Provider: Cherelle To History obtained from patient and records. Medical history significant for CAD status post stent, hypertension, hyperlipidemia, RADHA on CPAP, DM 2 diet-controlled, GERD, IBD on Entyvio, BPH. Last confinement March 2020 for LGIB. Patient woke up with achy abdominal discomfort which progressed throughout the day. No fever, no chills, no chest pain, no SOB. Usual bowel movements. Had Entyvio infusion for IBD at [facility] office today. Patient consulted ER for evaluation. SBP 190s upon arrival at the ER. 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 Allergies Allergy/AdvReac Type Severity Reaction Status Date / Time watermelon Allergy Severe THROAT Verified 11/01/23 22:18 CLOSES, ITCHING cat dander Allergy Intermediate SNEEZING, Verified 11/01/23 22:18 CONGESTION dog dander Allergy Intermediate SNEEZING, Verified 11/01/23 22:18 CONGESTION grass pollen Allergy Intermediate SNEEZING, Verified 11/01/23 22:18 CONGESTION ragweed pollen Allergy Intermediate SNEEZING, Verified 11/01/23 22:18 CONGESTION tree and shrub pollen Allergy Intermediate SNEEZING, Verified 11/01/23 22:18 CONGESTION house dust Allergy Mild Sneezing Verified 11/01/23 22:18 mold Allergy Mild Sneezing Verified 11/01/23 22:18 Home Medications Medication Instructions Recorded Confirmed Type aspirin 81 mg tablet,delayed 81 mg PO HS 03/15/19 11/01/23 History release atorvastatin 40 mg tablet 40 mg PO HS 03/15/19 11/01/23 History carboxymethylcellulose 0.5 1 drp ophthalmic (eye) TID 03/15/19 11/01/23 History %-glycerin 0.9 % eye drops cetirizine 5 mg-pseudoephedrine ER 1 tab PO Q12H PRN Allergic Symptoms 03/15/19 11/01/23 History 120 mg tablet,extended release,12hr (Zyrtec-D) clopidogrel 75 mg tablet 75 mg PO QAM 03/15/19 11/01/23 History cyanocobalamin (vitamin B-12) 1,000 mcg PO QAM 03/15/19 11/01/23 History 1,000 mcg tablet (Vitamin B-12) esomeprazole magnesium 40 mg 40 mg PO QAM 03/15/19 11/01/23 History capsule,delayed release (Nexium) ferrous sulfate 325 mg (65 mg 325 mg PO QAM 03/15/19 11/01/23 History iron) tablet folic acid 800 mcg tablet 0.8 mg PO 4XWK 03/15/19 11/01/23 History metoprolol succinate 25 mg 25 mg PO HS 03/15/19 11/01/23 History tablet,extended release 24 hr multivitamin 1 tab PO QAM 03/15/19 11/01/23 History nitroglycerin 0.4 mg sublingual 0.4 mg sublingual UD PRN Chest Pain 03/15/19 11/01/23 History tablet sulfasalazine 500 mg tablet 500 mg PO TID 03/15/19 11/01/23 History tamsulosin 0.4 mg capsule 0.4 mg PO QPM 03/15/19 11/01/23 History cholecalciferol (vitamin D3) 125 5,000 unit PO QAM 10/26/19 11/01/23 History mcg (5,000 unit) tablet (Vitamin D3) famotidine 40 mg tablet (Pepcid) 20 mg PO HS 10/26/19 11/01/23 History acetaminophen 500 mg tablet 500 - 1,000 mg PO DIRECTED PRN 11/14/20 11/01/23 History (Tylenol Extra Strength) Pain trazodone 50 mg tablet 50 mg PO HS 11/14/20 11/01/23 History budesonide 32 mcg/actuation nasal 2 spray intranasal HS 11/01/23 11/01/23 History spray diclofenac sodium 1 % topical gel 2 g topical TID PRN Pain 11/01/23 11/01/23 History finasteride 5 mg tablet 5 mg PO QAM 11/01/23 11/01/23 History fluticasone 100 mcg-salmeterol 50 1 inh inhalation BID 11/01/23 11/01/23 History mcg/dose blistr powdr for inhalation (Wixela Inhub) losartan 50 mg tablet 50 mg PO QAM 11/01/23 11/01/23 History Past Med/Surg History Medical History CAD (coronary artery disease) stents x2 (2005, 2007) Osteoarthritis Anemia Melanoma s/p excision (face) Anxiety Hyperlipidemia Hypertension Asthma stable Severe sleep apnea CPAP SBO (small bowel obstruction) recurrent, most recent 02/2020 Hemorrhoids Esophageal hernia Esophageal reflux Ulcerative colitis Surgical History History of esophagogastroduodenoscopy (EGD) History of colonoscopy H/O prostate biopsy PSA under surveillance (09/2020) History of tooth extraction 3 WTE Hx of bilateral cataract extraction History of cardiac cath Family History Father Colon cancer Social History Smoking Status: Never smoker Second Hand Exposure: No; Do You Dip or Chew Tobacco: No; Hx Alcohol Use: No Hx Substance Use: No Preferred Language: Maori Communication Ability: Effective Visual Impairment: No Limitations Hearing Ability: Normal Lining Maker Required: No Beliefs That Will Affect Care: None marital status: marital status details: Current Living Situation: Spouse Feels Safe at Home: Yes Safety Concerns: Feels Safe At This Time Assistive Devices: CPAP and Glasses Review of Systems Review of Systems: As per HPI, all other systems reviewed and negative Physical Exam Physical Exam: GENERAL: Comfortable, pleasant, slightly hard of hearing, no respiratory distress SKIN: Normal color, warm HEENT: Alopecia, bespectacled, pink palpebral conjunctivae, no ptosis, dry buccal mucosa NECK : Supple, no tenderness CHEST : CTA, no tenderness HEART : RRR, no obvious murmurs ABDOMEN: Some distention, nontender EXTREMITIES : No LE swelling/tenderness, no other conspicuous deformities noted NEUROLOGIC : Coherent, no facial asymmetry, slightly hard of hearing, no other gross focality Results & Data Results & Data Vital Signs (Past 12 Hours) Vital Signs Temp Pulse Pulse Resp BP BP Pulse Ox 11/02/23 00:00 78 17 159/113 H 93 11/01/23 23:30 80 20 160/90 H 94 11/01/23 23:00 79 23 151/89 H 93 11/01/23 22:23 76 14 163/91 H 94 11/01/23 22:17 78 11/01/23 18:58 196/117 H 11/01/23 18:55 36.4 C L 87 20 95 O2 Del Method 11/02/23 00:00 Room Air 11/01/23 23:30 Room Air 11/01/23 23:00 Room Air 11/01/23 22:23 Room Air 11/01/23 22:17 11/01/23 18:58 11/01/23 18:55 Room Air Laboratory Results Laboratory Results WBC 15.61 K/ul (4.8-10.8) H 11/01/23 20:25 RBC 4.73 M/uL (4.70-6.10) 11/01/23 20:25 Hgb 15.5 g/dl (14.0-18.0) 11/01/23 20:25 Hct 44.8 % (42.0-52.0) 11/01/23 20:25 MCV 94.7 fL (80.0-100.0) 11/01/23 20:25 MCH 32.8 pg (25.0-34.0) 11/01/23 20: MCHC 34.6 g/dL (32.0-36.0) 11/01/23 20:25 RDW Std Deviation 48.0 fL (36.4-46.3) H 11/01/23 20:25 RDW Coeff of Odette 13.7 % (11.5-14.5) 11/01/23: Plt Count 241 K/uL (130-400) 11/01/23 20:25 MPV 9.9 fL (9.4-12.4) 11/01/23 20:25 Immature Gran % (Auto) 0.5 % 11/01/23: Neut % (Auto) 81.6 % 11/01/23: Lymph % (Auto) 6.8 % 11/01/23: [place] % (Auto) 10.0 % 11/01/23: Eos % (Auto) 0.8 % 11/01/23: Baso % (Auto) 0.3 % 11/01/23: Neut # (Auto) 12.73 K/uL (1.40-6.50) H 11/01/23: Lymph # (Auto) 1.06 K/uL (1.20-3.40) L 11/01/23 20:25 [place] # (Auto) 1.56 K/uL (0.11-0.59) H 11/01/23 20:25 Eos # (Auto) 0.13 K/uL (0.00-0.50) 11/01/23: Baso # (Auto) 0.05 K/uL (0.00-0.20) 11/01/23 20: Immature Gran # (Auto) 0.08 K/uL (0.01-0.20) 11/01/23 20:25 Sodium 136 mmol/L (136-145) 11/01/23 20:25 Potassium 4.3 mmol/L (3.5-5.1) 11/01/23 20: Chloride 103 mmol/L (98-107) 11/01/23 20:25 Carbon Dioxide 23 mmol/L (21-32) 11/01/23 20:25 Anion Gap 10 (3-11) 11/01/23 20:25 BUN 16 mg/dl (6-23) 11/01/23 20: Creatinine 0.87 mg/dl (0.6-1.4) 11/01/23: Est Cr Clr Drug Dosing 71.3 ml/min 11/01/23 20:25 Est GFR ( Amer) 96.5 ml/min 11/01/23 20:25 Est GFR (Non-Af Amer) 83.2 ml/min 11/01/23 20:25 BUN/Creatinine Ratio 18.4 (10-20) 11/01/23 20:25 Glucose 148 mg/dl (70-99(Fasting)) H 11/01/23 20:25 Calcium 9.3 mg/dl (8.6-10.3) 11/01/23 20:25 Magnesium 1.9 mg/dl (1.7-2.4) 11/01/23 20:25 Total Bilirubin 0.6 mg/dl (0.2-1.0) 11/01/23 20:25 AST 21 U/L (13-39) 11/01/23 20:25 ALT 21 U/L (7-52) 11/01/23 20:25 Alkaline Phosphatase 61 U/L (34-104) 11/01/23 20:25 Total Protein 7.0 gm/dl (6.0-8.3) 11/01/23 20:25 Albumin 4.4 gm/dl (3.4-5.0) 11/01/23 20:25 Globulin 2.6 gm/dl (2.5-4.0) 11/01/23 20:25 Albumin/Globulin Ratio 1.7 (0.9-2) 11/01/23 20:25 Lipase 5 U/L (11-82) L 11/01/23 20:25 Urine Color Dark Yellow 11/01/23 20:38 Urine Appearance Clear (Clear) 11/01/23 20:38 Urine pH 5.0 (4.5-7.5) 11/01/23 20:38 Ur Specific [place] 1.023 (1.000-1.030) 11/01/23 20:38 Urine Protein Negative (Negative) 11/01/23 20: Urine Glucose (UA) Negative (Negative) 11/01/23 20:38 Urine Ketones Negative (Negative) 11/01/23 20:38 Urine Blood Negative (Negative) 11/01/23 20: Urine Nitrite Negative (Negative) 11/01/23: Urine Bilirubin Negative (Negative) 11/01/23 20:38 Urine Urobilinogen Negative (Negative) 11/01/23 20:38 Ur Leukocyte Esterase Negative (Negative) 11/01/23 20:38 Impressions Abdomen/Pelvis CT 11/01/23 21:22 Exam(s): CT ABDOMEN + PELVIS With Contrast IV Amt: 91ML OPTIRAY 320 EXAM: CT Abdomen and Pelvis With Intravenous Contrast CLINICAL HISTORY: Reason for exam: abd pain hxt chrons. TECHNIQUE: Axial computed tomography images of the abdomen and pelvis with intravenous contrast. CTDI is 24.24 mGy and DLP is 1141.79 mGy-cm. Automated exposure control was utilized for the study. A dose lowering technique was utilized adhering to the principles of ALARA. CONTRAST: Patient received 91ML OPTIRAY 320 of IV contrast COMPARISON: 02/20/2020. FINDINGS: Lung bases: There is minimal atelectasis at the right middle lobe and right lower lobe, otherwise normal lung bases. Heart: Unremarkable. No cardiomegaly. No significant pericardial effusion. Normal cardiac size with coronary artery calcifications . Mediastinum: Moderate hiatal hernia. Remainder of the stomach unremarkable. ABDOMEN: Liver: Low-attenuation structure within the right liver lobe measuring 6.5 mm, too small to characterize and likely benign such as cyst in the absence of known neoplasm and given stability in the interval. Gallbladder and bile ducts: Unremarkable. No calcified stones. No ductal dilation. Pancreas: Unremarkable. No mass. No ductal dilation. Spleen: Unremarkable. No splenomegaly. Adrenals: Unremarkable. No mass. Kidneys and ureters: Unremarkable. No solid mass. No hydronephrosis. Stomach and bowel: Significant circumferential thickening of the pelletier of the distal including the ileocecal valve concerning for distal enteritis/Crohn's disease. There is mild distention of the small bowel loops cephalad to this level reaching a maximum diameter of 3.3 cm concerning for small bowel obstruction, combination of findings suggestive of zone of transition at this level. The descending colon is decompressed. Nonspecific borderline thickening of the wall, cannot exclude mild colitis. PELVIS: Appendix: Normal appendix . Bladder: Unremarkable. No mass. Reproductive: Mild prostate enlargement. ABDOMEN and PELVIS: Intraperitoneal space: Unremarkable. No free air. No significant fluid collection. Bones/joints: Advanced multilevel degenerative disease of the spine, bilateral SI joints and hips. No acute fracture. No dislocation. Soft tissues: Small bilateral fat-containing inguinal hernias versus scrotal lipomas. Vasculature: Atherosclerotic disease of aorta with no aneurysm. Lymph nodes: Unremarkable. No enlarged lymph nodes. IMPRESSION: 1. Findings suggestive of recurrent Crohn's disease involving the distal ileum/ileocecal valve with cephalad small bowel dilatation raising the concern of component of inflammatory process (with stricture not excluded) contributing to cephalad obstruction, zone of transition at this level. Clinical correlation recommended. 2. Moderate hiatal hernia. 3. No acute appendicitis. Electronically signed by: Kaylee Mcguire MD 11/01/23 23:21 PM
[2023-11-02] MEDS ORDERED: GLUCOSE 40% GEL 15 GM TUBE PO PRN (00:36)
[2023-11-02] MEDS ORDERED: ACETAMINOPHEN 1,000 MG/100 ML VIAL IV PRN (00:36)
[2023-11-02] MEDS ORDERED: PROMETHAZINE HCL 6.25 MG in SODIUM CHLORIDE 0.9% 50 ML IV PRN (00:36)
[2023-11-02] MEDS ORDERED: ACETAMINOPHEN 325 MG TAB PO PRN (00:36)
[2023-11-02] MEDS ORDERED: DEXTROSE 50% 50 ML SYRINGE IV PRN (00:36)
[2023-11-02] MEDS ORDERED: CARBOHYDRATES FOR HYPOGLYCEMIA PO PRN (00:36)
[2023-11-02] MEDS ORDERED: GLUCOSE 10 TAB/TUBE PO PRN (00:36)
[2023-11-02] MEDS ORDERED: GLUCAGON FOR INJ 1 MG VIAL SQ PRN (00:36)
[2023-11-02] MEDS: INSULIN ASPART PER UNIT CHARGE SC SCH ×2 (01:04→17:17)
[2023-11-02] MEDS: METOPROLOL TARTRATE 1 MG/ML VIAL IV STA ×2 (01:07→09:31)
[2023-11-02] MEDS: SODIUM CHLORIDE 0.9% 1,000 ML IV ONE (01:08)
[2023-11-02] MEDS: traZODone HCL 50 MG TAB PO SCH (03:42)
[2023-11-02] MEDS: FAMOTIDINE 20 MG TAB PO SCH (03:42)
[2023-11-02] MEDS: ATORVASTATIN 40 MG TAB PO SCH (03:43)
[2023-11-02] MEDS: LOSARTAN POTASSIUM 50 MG TAB PO STA (04:23)
[2023-11-02 07:12] LABS: Basophils # (auto) 0.04 K/uL (0.00-0.20); Basophils % (auto) 0.3 %; Eosinophils # (auto) 0.02 K/uL (0.00-0.50); Eosinophils % (auto) 0.2 %; Hematocrit (blood only) 43.5 % (42.0-52.0); Hemoglobin 14.1 g/dl (14.0-18.0); Immature Granulocytes # (auto) 0.06 K/uL (0.01-0.20); Immature Granulocytes % (auto) 0.5 %; Lymphocytes # (auto) 0.86 K/uL (1.20-3.40); Lymphocytes % (auto) 7.5 %; Mean Corpuscular Hemoglobin 31.3 pg (25.0-34.0); Mean Corpuscular Hgb Conc 32.4 g/dL (32.0-36.0); Mean Corpuscular Volume 96.5 fL (80.0-100.0); Mean Platelet Volume 9.7 fL (9.4-12.4); Monocytes # (auto) 0.41 K/uL (0.11-0.59); Monocytes % (auto) 3.6 %; Neutrophils # (auto) 10.08 K/uL (1.40-6.50); Neutrophils % (auto) 87.9 %; Platelet Count 225 K/uL (130-400); RDW Coefficient of Variation 13.7 % (11.5-14.5); RDW Standard Deviation 48.4 fL (36.4-46.3); Red Blood Count 4.51 M/uL (4.70-6.10); White Blood Count 11.47 K/ul (4.8-10.8)
[2023-11-02 07:48] LABS: BUN Creatinine Ratio 15.7 (10-20); Creatinine Clr Calc Pharmacy 69.7 ml/min; Est GFR (African American) 95.6 ml/min; Est GFR (Non-African American) 82.5 ml/min; Potassium 4.7 mmol/L (3.5-5.1)
[2023-11-02] MEDS ORDERED: LOSARTAN POTASSIUM 50 MG TAB PO SCH (09:00)
[2023-11-02] MEDS: ARTIFICIAL TEARS OP SCH (09:23)
[2023-11-02] MEDS: FLUTICASONE/VILANTEROL 100/25MCG 14 PUFFS/INHALER INH SCH (09:24)
[2023-11-02] MEDS: MULTIVITAMIN TAB PO SCH (09:25)
[2023-11-02] MEDS: FINASTERIDE 5 MG TAB PO SCH (09:25)
[2023-11-02] MEDS: CYANOCOBALAMIN (B-12) 500 MCG TABLET PO SCH (09:26)
[2023-11-02] MEDS: PANTOprazole 40 MG TAB PO SCH (09:27)
[2023-11-02] MEDS: sulfaSALAzine 500 MG TABLET PO SCH (09:28)
[2023-11-02] MEDS: methylPREDNISolone 20 MG in SYRINGE 0 ML IV SCH (09:29)
[2023-11-02] MEDS: MAGNESIUM SULFATE / D5W 1 GM/100 ML BAG IV ONE (09:34)
[2023-11-02] MEDS: ENOXAPARIN INJ 40 MG/0.4 ML SYR SQ SCH (09:36)
[2023-11-02] MEDS: FERROUS SULFATE 325 MG TAB PO SCH (09:36)
[2023-11-02] MEDS: LANTUS PER UNIT CHARGE SQ SCH (09:37)
--- NOTE | 2023-11-02 10:58 | Gastrointestinal Consultation ---
Date of Consultation November 02, 2023 Assessment & Plan (1) Small bowel obstruction: (2) Chronic inflammatory small bowel disease: Plan - appreciate surgical services opinion for conservative management. - clear liquids po - Solumedrol 20mg IV Q 8 hrs. - Monitor stool outputs. - If continues to feel well tomorrow would advance diet. - When discharged: prednisone 40mg daily x 2 wks, 30mg daily x 2 wks, 20mg daily x 2 weeks and f/u w regular GI provider: [facility] for further taper and management of Crohn's. Supervising Physician Co-Signing Physician Notes I have seen and examined the patient and agree with pe and plan as documented. Abd pain/nausea/vomiting, concerns on imaging for possible distal sbo, soft abdomen and passing gas clinically. History of crohn's on entyvio through [facility] for 2 years Clinically appears to be responding to iv steroids, once tolerating po would do steroid taper as delineated and fup with his regular gi providers. Could consider esr/crp while in house. Surgical input about sbo and any intervention from their perpsective. History of Present Illness Reason for Consultation: Possible IBD Flare Requesting Physician: Dr. Sandhu Attending Physician: Marii Nath MD History of Present Illness Mr. Mk Garg is a 78 yr old male pt of Dr. To w a hx of CAD S/P stent, HTN, HLD, GERD, DM2, peripheral neuropathy, RADHA on CPAP. Crohn's who presented to the [facility] ED yesterday for abd pain. GI is consulted for a possible IBD flare. The pt tells me that he has been on Entyvio (currently every 6wks) through [facility] x 2 yrs. On Wednesday and Wednesday he ate some foods that he doesn't typically eat (coleslaw, raw carrots, a hamburger) and that Wednesday evening he had pain and abdominal distention. On arrival, CT w distal small bowel wall thickening and luminal narrowing w upstream dilation suggestive of small bowel Crohn's w fibrosis and inflammatory changes in the distal/terminal ileum. He was placed on bowel rest and has recieved 2 doses of solumedrol IV> His most recent BM was early yesterday but he is passing gas and feels much better today compared to last evening. He feels so well that he asks to eat and go home. He denies any blood in his BMs, any Nausea or Vomiting. Allergies Allergy/AdvReac Type Severity Reaction Status Date / Time watermelon Allergy Severe THROAT Verified 11/01/23 22:18 CLOSES, ITCHING cat dander Allergy Intermediate SNEEZING, Verified 11/01/23 22:18 CONGESTION dog dander Allergy Intermediate SNEEZING, Verified 11/01/23 22:18 CONGESTION grass pollen Allergy Intermediate SNEEZING, Verified 11/01/23 22:18 CONGESTION ragweed pollen Allergy Intermediate SNEEZING, Verified 11/01/23 22:18 CONGESTION tree and shrub pollen Allergy Intermediate SNEEZING, Verified 11/01/23 22:18 CONGESTION house dust Allergy Mild Sneezing Verified 11/01/23 22:18 mold Allergy Mild Sneezing Verified 11/01/23 22:18 Home Medications Medication Instructions Recorded Confirmed Type aspirin 81 mg tablet,delayed 81 mg PO HS 03/15/19 11/01/23 History release atorvastatin 40 mg tablet 40 mg PO HS 03/15/19 11/01/23 History carboxymethylcellulose 0.5 1 drp ophthalmic (eye) TID 03/15/19 11/01/23 History %-glycerin 0.9 % eye drops cetirizine 5 mg-pseudoephedrine ER 1 tab PO Q12H PRN Allergic Symptoms 03/15/19 11/01/23 History 120 mg tablet,extended release,12hr (Zyrtec-D) clopidogrel 75 mg tablet 75 mg PO QAM 03/15/19 11/01/23 History cyanocobalamin (vitamin B-12) 1,000 mcg PO QAM 03/15/19 11/01/23 History 1,000 mcg tablet (Vitamin B-12) esomeprazole magnesium 40 mg 40 mg PO QAM 03/15/19 11/01/23 History capsule,delayed release (Nexium) ferrous sulfate 325 mg (65 mg 325 mg PO QAM 03/15/19 11/01/23 History iron) tablet folic acid 800 mcg tablet 0.8 mg PO 4XWK 03/15/19 11/01/23 History metoprolol succinate 25 mg 25 mg PO HS 03/15/19 11/01/23 History tablet,extended release 24 hr multivitamin 1 tab PO QAM 03/15/19 11/01/23 History nitroglycerin 0.4 mg sublingual 0.4 mg sublingual UD PRN Chest Pain 03/15/19 11/01/23 History tablet sulfasalazine 500 mg tablet 500 mg PO TID 03/15/19 11/01/23 History tamsulosin 0.4 mg capsule 0.4 mg PO QPM 03/15/19 11/01/23 History cholecalciferol (vitamin D3) 125 5,000 unit PO QAM 10/26/19 11/01/23 History mcg (5,000 unit) tablet (Vitamin D3) famotidine 40 mg tablet (Pepcid) 20 mg PO HS 10/26/19 11/01/23 History acetaminophen 500 mg tablet 500 - 1,000 mg PO DIRECTED PRN 11/14/20 11/01/23 History (Tylenol Extra Strength) Pain trazodone 50 mg tablet 50 mg PO HS 11/14/20 11/01/23 History budesonide 32 mcg/actuation nasal 2 spray intranasal HS 11/01/23 11/01/23 History spray diclofenac sodium 1 % topical gel 2 g topical TID PRN Pain 11/01/23 11/01/23 History finasteride 5 mg tablet 5 mg PO QAM 11/01/23 11/01/23 History fluticasone 100 mcg-salmeterol 50 1 inh inhalation BID 11/01/23 11/01/23 History mcg/dose blistr powdr for inhalation (Wixela Inhub) losartan 50 mg tablet 50 mg PO QAM 11/01/23 11/01/23 History Patient History Medical History CAD (coronary artery disease) stents x2 (2005, 2007) Osteoarthritis Anemia Melanoma s/p excision (face) Anxiety Hyperlipidemia Hypertension Asthma stable Severe sleep apnea CPAP SBO (small bowel obstruction) recurrent, most recent 02/2020 Hemorrhoids Esophageal hernia Esophageal reflux Ulcerative colitis Surgical History History of esophagogastroduodenoscopy (EGD) History of colonoscopy H/O prostate biopsy PSA under surveillance (09/2020) History of tooth extraction 3 WTE Hx of bilateral cataract extraction History of cardiac cath Family History Father Colon cancer Social History Smoking Status: Never smoker Second Hand Exposure: No; Do You Dip or Chew Tobacco: No; Hx Alcohol Use: No Hx Substance Use: No Preferred Language: Vietnamese Communication Ability: Effective Visual Impairment: No Limitations Hearing Ability: Normal Kindergartners Helper Required: No Beliefs That Will Affect Care: None marital status: marital status details: Current Living Situation: Spouse Feels Safe at Home: Yes Safety Concerns: Feels Safe At This Time Assistive Devices: CPAP and Glasses Review of Systems Review of Systems: ROS: Gen: Denies weakness, fevers, weight loss Eyes: No eye redness, or pain, no recent vision changes Resp: No SOB, no cough Cardio: No palpitations/irregular beats, no chest pain GI: As per HPI, otherwise(-) : Denies pain on urination Skin: No jaundice, itching or new rashes Physical Exam Constitutional: WD/WN, vitals as above + overweight Eyes: PERRL, conjunctivae normal, anicteric sclerae ENMT: external ear and nose normal, oropharynx normal Neck: trachea midline, no thyromegaly Respiratory: normal respiratory effort, lungs clear to auscultation Cardiovascular: RRR, no murmur, no edema Gastrointestinal (Abdomen): normal bowel sounds, soft, nontender, no hepatosplenomegaly Musculoskeletal: no cyanosis or clubbing, extremities motor strength 5/5 Skin: no rashes, warm and dry Neurologic: PERRL, EOMI, accommodation nl, no face palsy, no dysarthria Psychiatric: A+Ox3, euthymic affect Lymphatic: no cervical or axillary lymphadenopathy Results & Data Vital Signs (Past 12 Hours) Vital Signs Pulse Pulse Resp BP BP Pulse Ox Pulse Ox 11/02/23 10:30 89 20 127/89 95 11/02/23 09:38 89 20 125/83 92 11/02/23 07:31 105 H 20 151/90 H 92 11/02/23 07:20 83 11/02/23 06:00 77 15 154/92 H 94 11/02/23 05:30 70 20 160/97 H 94 11/02/23 05:00 79 17 152/88 H 93 11/02/23 04:30 84 18 149/89 H 11/02/23 04:00 78 15 161/98 H 95 11/02/23 03:58 84 16 95 11/02/23 03:30 81 20 169/91 H 91 11/02/23 03:00 72 18 163/89 H 90 11/02/23 02:30 70 17 149/76 H 93 11/02/23 02:14 74 159/90 H 11/02/23 02:00 73 17 159/92 H 95 11/02/23 02:00 91 11/02/23 01:30 72 16 159/90 H 93 11/02/23 01:07 100 H 159/100 H 11/02/23 01:00 78 18 159/100 H 95 11/02/23 00:30 78 12 165/100 H 94 11/02/23 00:00 78 17 159/113 H 93 11/01/23 23:30 80 20 160/90 H 94 11/01/23 23:00 79 23 151/89 H 93 O2 Del Method O2 Del Method FiO2 11/02/23 10:30 Room Air 11/02/23 09:38 Room Air 11/02/23 07:31 CPAP 11/02/23 07:20 11/02/23 06:00 CPAP 11/02/23 05:30 CPAP 11/02/23 05:00 CPAP 11/02/23 04:30 11/02/23 04:00 Room Air 11/02/23 03:58 21 11/02/23 03:30 Room Air 11/02/23 03:00 Room Air 11/02/23 02:30 Room Air 11/02/23 02:14 11/02/23 02:00 Room Air 11/02/23 02:00 Room Air 11/02/23 01:30 Room Air 11/02/23 01:07 11/02/23 01:00 Room Air 11/02/23 00:30 Room Air 11/02/23 00:00 Room Air 11/01/23 23:30 Room Air 11/01/23 23:00 Room Air Laboratory Results WBC 15, Hb 15, Hct 44, Plts 241, Na 136, K 4.3, Cl 103, CO2 83, BUN 16, Cr 0.87, glucose 156. Diagnostic Findings CTAP w IV contrast 11/01/23: : 1. Findings suggestive of recurrent Crohn's disease involving the distal ileum/ileocecal valve with cephalad small bowel dilatation raising the concern of component of inflammatory process (with stricture not excluded) contributing to cephalad obstruction, zone of transition at this level. Clinical correlation recommended. 2. Moderate hiatal hernia. 3. No acute appendicitis.
--- NOTE | 2023-11-02 14:55 | Communication Note ---
Date of Service: November 02, 2023 Patient was seen and examined at bedside. 78-year-old male with PMH of CAD status post stent, HTN, HLD, RADHA on CPAP, T2DM, GERD, IBD on Entyvio, BPH presented to the ED with acute abdominal discomfort which progressed throughout the day. Denies any fever or chills or shortness of breath or chest pain. He is being managed for the following: Small bowel obstruction Likely Crohn's disease flareup Patient has history of IBD on Entyvio, came in with progressive abdominal discomfort. 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 No bowel or gas since then. Denies any nausea and vomiting. GI evaluated, plan for clear liquid diet and advance as tolerated. Prednisone taper recommended. General surgery evaluated, conservative management for now. Monitor for nausea, vomiting, abdominal pain, bowel movement. Continue with steroid. IV fluids until p.o. intake improves. Nausea control and pain control. Plavix held given potential need for surgery, resume Plavix in 1 to 2 days depending on clinical course. Other chronic medical conditions: Continue with/resume home meds as and when able. hx CAD status post stent hypertension, slightly elevated secondary to discomfort hyperlipidemia, on statin Rx GERD, stable on PPI DM 2 diet-controlled, well-controlled as of recent hemoglobin A1c of 6.25 July 2023 RADHA on CPAP DVT prophylaxis per Lovenox subcu Full code Text document was generated using [employer] voice recognition software. It may contain grammatical or spelling errors. Kindly contact undersigned for clarification of any documentation item in question
[2023-11-02] MEDS ORDERED: SODIUM CHLORIDE 0.9% 1,000 ML IV SCH (18:00)
[2023-11-02] MEDS: FLUTICASONE PROPIONATE NA SPR 16 GM BTL SCH (21:08)
[2023-11-02] MEDS: ASPIRIN 81 MG ECTAB PO SCH (21:09)
[2023-11-02] MEDS: TAMSULOSIN HCL 0.4 MG CAP PO SCH (21:10)
[2023-11-02] MEDS: METOPROLOL SUCC 25MG EXT REL TAB PO SCH (21:10)
[2023-11-03] MEDS: LOSARTAN POTASSIUM 50 MG TAB PO SCH (08:51)
[2023-11-03] MEDS: FOLIC ACID 400 MCG TAB PO SCH (08:51)
--- NOTE | 2023-11-03 09:13 | Gastroenterology Progress Note ---
Date of Service November 03, 2023 Assessment & Plan (1) Chronic inflammatory small bowel disease: (2) Small bowel obstruction: Plan: (partial - improving) Plan Appreciate surgery recommendation for conservative manage of partial SBO. Full liquid diet today. If passes a BM then can be advanced to low fiber/low residual. Reasonable to be discharged today if can pass a BM and tolerate a low fiber/low residual meal. F/u w [facility] and [facility]. Pt tells me he had previously been offered resection for TI stricture - will talk w them about considering. - while hospitalized - Solumedrol 20mg IV Q 8 hrs. - When discharged: prednisone 40mg daily x 2 wks, 30mg daily x 2 wks, 20mg daily x 2 weeks and f/u w regular GI provider: [facility] for further taper and management of Crohn's. GI will sign off. Please recall if worsening of symptoms or questions. Admission and Anticipated Discharge Date Admission Date: November 02, 2023 Supervising Physician Co-Signing Physician Notes I have seen and examined the patient and agree with pe and plan as documented. Tolerated breakfast, passing gas. Subjective 78 yr old male with small bowel Crohn's on Entyvio admitted 11/02 for partial SBO. On Solumedrol 20 Q 8. Sed 6, CRP 1.58 (mildly elevated) Pt sitting up in bed, on his phone this morning. Tells me no pain since early yesterday morning. Passing gas, no BM yet but "feels like I could." Diet - clear liquids. On exam BS present, no tenderness, very mild distention. Review of Systems Review of Systems: ROS: Gen: Denies weakness, fevers, weight loss Eyes: No eye redness, or pain, no recent vision changes Resp: No SOB, no cough Cardio: No palpitations/irregular beats, no chest As per HPI No abdominal pain, no nausea/vomiting : Denies pain on urination Skin: No jaundice, itching or new rashes Physical Exam Constitutional: well developed and cooperative Eyes: PERRL, conjunctivae normal, anicteric sclerae Respiratory: normal respiratory effort, lungs clear to auscultation Cardiovascular: RRR, no murmur, no edema Gastrointestinal (Abdomen): normal bowel sounds, soft, nontender, no h epatosplenomegaly minimally distendend Skin: no rashes, warm and dry normal turgor Neurologic: PERRL, EOMI, accommodation nl, no face palsy, no dysarthria Psychiatric: A+Ox3, euthymic affect Lymphatic: no cervical or axillary lymphadenopathy Results & Data Vital Signs (Past 12 Hours) Vital Signs Temp Pulse Pulse Pulse Resp BP Pulse Ox 11/03/23 07:25 66 11/03/23 07:22 36.5 C 64 18 126/74 96 11/03/23 05:20 73 20 95 11/03/23 02:30 36.7 C 73 20 131/78 95 11/03/23 00:19 78 16 93 11/02/23 22:41 36.4 C L 79 18 154/95 H 92 11/02/23 21:58 80 O2 Del Method FiO2 11/03/23 07:25 11/03/23 07:22 Room Air 11/03/23 05:20 21 11/03/23 02:30 Room Air 11/03/23 00:19 21 11/02/23 22:41 Room Air 11/02/23 21:58 Laboratory Results CBC, CMP pending. Diagnostic Findings CTAP w IV 11/01/13: 1. Findings suggestive of recurrent Crohn's disease involving the distal ileum/ileocecal valve with cephalad small bowel dilatation raising the concern of component of inflammatory process (with stricture not excluded) contributing to cephalad obstruction, zone of transition at this level. Clinical correlation recommended. 2. Moderate hiatal hernia. 3. No acute appendicitis.
[2023-11-03 09:15] LABS: Albumin Level 4.2 gm/dl (3.4-5.0); Bilirubin,Total 0.5 mg/dl (0.2-1.0); Magnesium 2.3 mg/dl (1.7-2.4); Potassium 4.3 mmol/L (3.5-5.1)
[2023-11-03 09:21] LABS: Albumin Globulin Ratio 1.9 (0.9-2); BUN Creatinine Ratio 17.8 (10-20); C Reactive Protein 1.5 mg/dl (0-0.5); Creatinine Clr Calc Pharmacy 68.4 ml/min; Est GFR (African American) 95.1 ml/min; Est GFR (Non-African American) 82.1 ml/min; Globulin 2.2 gm/dl (2.5-4.0); Total Protein 6.4 gm/dl (6.0-8.3)
--- NOTE | 2023-11-03 10:04 | Surgery Progress Note ---
Date of Service November 03, 2023 Assessment & Plan (1) Chronic inflammatory small bowel disease: Plan: Pt here with SBO 2/2 underlying crohns labs this AM are pending, vitals are stable clinically pt is feeling well, no abdominal complaints. on fulls. + gas, no BM yet per GI would like pt to have BM prior to adv to low fiber He is on steroids, will transition to a po taper upon dispo no indications for surgical intervention. he is improving with current tr eatment. continue to adv diet as bowel function returns. we will follow peripherally, please call with questions/concerns (2) SBO (small bowel obstruction): Admission and Anticipated Discharge Date Admission Date: November 02, 2023 Supervising Physician Co-Signing Physician Notes I personally saw and evaluated the patient with Clara Hernandez PA-C and agree with the assessment and plan 78 yo male with Crohn's flare and pSBO Advance diet as tolerated, tolerating fulls No indications for surgery Will sign off, please call with any questions or concerns Subjective Patient reports feeling well. Denies abdominal pain, nausea/vomiting. Tolerating full liquids. + gas, no BM yet. Physical Exam Physical Exam: awake/alert, no distress Gastrointestinal (Abdomen): Inspection/Auscultation: + abdomen distended (mild) Percussion/Palpation: abdomen soft; abdomen nontender Results & Data Vital Signs (Past 12 Hours) Vital Signs Temp Pulse Pulse Pulse Resp BP Pulse Ox 11/03/23 07:25 66 11/03/23 07:22 97.7 F 64 18 126/74 96 11/03/23 05:20 73 20 95 11/03/23 02:30 98.1 F 73 20 131/78 95 11/03/23 00:19 78 16 93 11/02/23 22:41 97.5 F L 79 18 154/95 H 92 O2 Del Method FiO2 11/03/23 07:25 11/03/23 07:22 Room Air 11/03/23 05:20 21 11/03/23 02:30 Room Air 11/03/23 00:19 21 11/02/23 22:41 Room Air PG Care Time/CCT Total # of Minutes Spent Total Time Spent with Patient: Total time spent is greater than 50% in coordination of care (as documented) at patient's floor/unit and/or counseling patient: Coding Level of Care Code 30485 SUB INP/OBS CARE 10/14MIN Diagnoses Chronic inflammatory small bowel disease K52.9 SBO (small bowel obstruction) K56.609
[2023-11-03 10:21] LABS: Hematocrit (blood only) 42.5 % (42.0-52.0); Hemoglobin 13.6 g/dl (14.0-18.0); Mean Corpuscular Hemoglobin 31.1 pg (25.0-34.0); Mean Corpuscular Volume 97.3 fL (80.0-100.0); Mean Platelet Volume 10.2 fL (9.4-12.4); Platelet Count 245 K/uL (130-400); RDW Coefficient of Variation 13.8 % (11.5-14.5); RDW Standard Deviation 49.1 fL (36.4-46.3); Red Blood Count 4.37 M/uL (4.70-6.10); White Blood Count 11.28 K/ul (4.8-10.8)
--- NOTE | 2023-11-03 15:20 | Hospitalist Progress Note ---
Date of Service November 03, 2023 Assessment & Plan (1) Small bowel obstruction: Plan: Mr. Garg is a 78 year old gentleman with history of htn, hld, CAD s/p OM2 stent 2007, LAD 2005, IBD on entivyo, DMTII, who is admitted on 11/02 for acute abdomen pain and found to have SBO. Patient responding to conservative measures, now s/p BM 11/03. #Small Bowel Obstruction #Chronic inflammatory bowel disease -Reported acute onset pain/N/V on 11/01 -s/p solumedrol q 8 hours -Bowel rest with improvement clinically; tolerated diet advancement -GI following: -ESR 7, crp 1.5 -Soludmedrol q 8 hours while inpatient -Discharge plan: prednisone 40mg daily x 2 wks, 30mg daily x 2 wks, 20mg daily x 2 weeks and f/u w regular GI provider: [facility] for further taper and management of Crohn's. -Advance to low fiber/low residue diet tonight -If tolerates, discharge tomorrow -General Surgery: improved with conservative measures, signed off 11/03 #CAD status post stent: resume plavix in am #hypertension, slightly elevated secondary to discomfort #hyperlipidemia, on statin Rx #GERD, stable on PPI #DM 2 diet-controlled, well-controlled as of recent hemoglobin A1c of 6.25 July 2023 #RADHA on CPAP DVT prophylaxis per Lovenox subcu Full code Plan for dispo in am if diet tolerated Admission and Anticipated Discharge Date Admission Date: November 02, 2023 Subjective Patient evaluated at bedside Reports flatus and finally a BM at around 1300 Denies any residual pain. Would like to stay to see tolerance for diet this alex nata with plans for early dispo Physical Exam Constitutional: WD/WN, vitals as above Respiratory: normal respiratory effort, lungs clear to auscultation Cardiovascular: RRR, no murmur, no edema Gastrointestinal (Abdomen): normal bowel sounds, soft, nontender, no hepatosplenomegaly Results & Data Results & Data Vital Signs (Past 12 Hours) Vital Signs Temp Pulse Pulse Resp BP Pulse Ox O2 Del Method 11/03/23 11:18 36.6 C 69 18 142/87 H 91 Room Air 11/03/23 07:25 66 11/03/23 07:22 36.5 C 64 18 126/74 96 Room Air 11/03/23 05:20 73 20 95 FiO2 11/03/23 11:18 11/03/23 07:25 11/03/23 07:22 11/03/23 05:20 21 Laboratory Results Short CBC 11/03/23 Range/Units 07:29 WBC 11.28 H (4.8-10.8) K/ul Hgb 13.6 L (14.0-18.0) g/dl Hct 42.5 (42.0-52.0) % Plt Count 245 (130-400) K/uL BMP 11/03/23 07:29 Sodium 138 Potassium 4.3 Chloride 104 Carbon Dioxide 28 BUN 16 Creatinine 0.90 Glucose 149 H Calcium 9.0 Liver Function 11/03/23 Range/Units 07:29 Total Bilirubin 0.5 (0.2-1.0) mg/dl AST 18 (13-39) U/L ALT 17 (7-52) U/L Alkaline Phosphatase 54 (34-104) U/L Albumin 4.2 (3.4-5.0) gm/dl Medications Administered Home Medications Medication Instructions Recorded Confirmed Last Taken aspirin 81 mg tablet,delayed 81 mg PO HS 03/15/19 11/01/23 10/31/23 release atorvastatin 40 mg tablet 40 mg PO HS 03/15/19 11/01/23 10/31/23 carboxymethylcellulose 0.5 1 drp ophthalmic (eye) TID 03/15/19 11/01/23 11/01/23 14:00 %-glycerin 0.9 % eye drops cetirizine 5 mg-pseudoephedrine ER 1 tab PO Q12H PRN Allergic Symptoms 03/15/19 11/01/23 Unknown 120 mg tablet,extended release,12hr (Zyrtec-D) clopidogrel 75 mg tablet 75 mg PO QAM 03/15/19 11/01/23 11/01/23 cyanocobalamin (vitamin B-12) 1,000 mcg PO QAM 03/15/19 11/01/23 11/01/23 1,000 mcg tablet (Vitamin B-12) esomeprazole magnesium 40 mg 40 mg PO QAM 03/15/19 11/01/23 11/01/23 capsule,delayed release (Nexium) ferrous sulfate 325 mg (65 mg 325 mg PO QAM 03/15/19 11/01/23 11/01/23 iron) tablet folic acid 800 mcg tablet 0.8 mg PO 4XWK 03/15/19 11/01/23 11/01/23 metoprolol succinate 25 mg 25 mg PO 03/15/19 11/01/23 10/31/23 tablet,extended release 24 hr multivitamin 1 tab PO QAM 03/15/19 11/01/23 11/01/23 nitroglycerin 0.4 mg sublingual 0.4 mg sublingual UD PRN Chest Pain 03/15/19 11/01/23 Unknown tablet sulfasalazine 500 mg tablet 500 mg PO TID 03/15/19 11/01/23 11/01/23 14:00 tamsulosin 0.4 mg capsule 0.4 mg PO QPM 03/15/19 11/01/23 10/31/23 cholecalciferol (vitamin D3) 125 5,000 unit PO QA 10/26/19 11/01/23 11/01/23 mcg (5,000 unit) tablet (Vitamin D3) famotidine 40 mg tablet (Pepcid) 20 mg PO 10/26/19 11/01/23 10/31/23 acetaminophen 500 mg tablet 500 - 1,000 mg PO DIRECTED PRN 11/14/20 11/01/23 11/01/23 08:00 (Tylenol Extra Strength) Pain 500 MG trazodone 50 mg tablet 50 mg PO 11/14/20 11/01/23 10/31/23 budesonide 32 mcg/actuation nasal 2 spray intranasal HS 11/01/23 11/01/23 10/31/23 spray diclofenac sodium 1 % topical gel 2 g topical TID PRN Pain 11/01/23 11/01/23 Unknown finasteride 5 mg tablet 5 mg PO QA 11/01/23 11/01/23 11/01/23 fluticasone 100 mcg-salmeterol 50 1 inh inhalation BID 11/01/23 11/01/23 11/01/23 08:00 mcg/dose blistr powdr for inhalation (Wixela Inhub) losartan 50 mg tablet 50 mg PO QA 11/01/23 11/01/23 11/01/23 Active Medications Generic Name Dose Route Start Last Admin Trade Name Freq PRN Reason Stop Dose Admin Artificial Tears 1 drops 11/02/23 09:00 11/03/23 13:53 Artificial Tears OP 12/02/23 08:59 1 drops TID JAZ Administration Aspirin 81 mg 11/02/23 21:00 11/02/23 21:09 Aspirin 81 Mg Ectab PO 12/02/23 20:59 81 mg HS JAZ Administration Atorvastatin Calcium 40 mg 11/02/23 01:24 11/02/23 21:09 Atorvastatin 40 Mg Tab PO 12/02/23 01:23 40 mg HS JAZ Administration Cyanocobalamin 1,000 mcg 11/02/23 09:00 11/03/23 08:54 Cyanocobalamin (B-12) 500 Mcg Tablet PO 12/02/23 08:59 1,000 mcg QAM JAZ Administration Enoxaparin Sodium 40 mg 11/02/23 09:00 11/03/23 08:53 Enoxaparin Inj 40 Mg/0.4 Ml Syr SQ 12/02/23 08:59 40 mg QAM JAZ Administration Famotidine 20 mg 11/02/23 01:24 11/02/23 21:10 Famotidine 20 Mg Tab PO 12/02/23 01:23 20 mg HS JAZ Administration Ferrous Sulfate 325 mg 11/02/23 09:00 11/03/23 08:51 Ferrous Sulfate 325 Mg Tab PO 12/02/23 08:59 325 mg QAM JAZ Administration Finasteride 5 mg 11/02/23 09:00 11/03/23 08:51 Finasteride 5 Mg Tab PO 12/02/23 08:59 5 mg QAM JAZ Administration Fluticasone Propionate 2 sprays 11/02/23 21:00 11/02/23 21:08 Fluticasone Propionate Na Spr 16 Gm Btl NA 12/02/23 20:59 2 sprays HS JAZ Administration Fluticasone/Vilanterol 1 puffs 11/02/23 09:00 11/03/23 08:53 Fluticasone/Vilanterol 100/25mcg 14 Puffs/Inhaler INH 12/02/23 08:59 1 puffs DAILY JAZ Administration Folic Acid 800 mcg 11/03/23 09:00 11/03/23 08:51 Folic Acid 400 Mcg Tab PO 12/03/23 08:59 800 mcg [id number] JAZ Administration Methylprednisolone 20 mg/ 0.32 mls @ 1.5 mls/min 11/02/23 10:00 11/03/23 10:25 Syringe IV 12/02/23 09:59 1.5 mls/min Q8H JAZ Administration Insulin Aspart 0 units 11/02/23 16:30 11/03/23 12:48 Insulin Aspart Per Unit Charge SC 12/02/23 16:29 Not Given ACHS JAZ Insulin Glargine 5 units 11/02/23 09:00 11/03/23 08:59 Lantus Per Unit Charge SQ 12/02/23 08:59 Not Given DAILY JAZ Losartan Potassium 50 mg 11/03/23 09:00 11/03/23 08:51 Losartan Potassium 50 Mg Tab PO 12/03/23 08:59 50 mg QAM JAZ Administration Metoprolol Succinate 25 mg 11/02/23 21:00 11/02/23 21:10 Metoprolol Succ 25mg Ext Rel Tab PO 12/02/23 20:59 25 mg HS JAZ Administration Multivitamins 1 tab 11/02/23 09:00 11/03/23 08:51 Multivitamin Tab PO 12/02/23 08:59 1 tab QAM JAZ Administration Pantoprazole Sodium 40 mg 11/02/23 09:00 11/03/23 08:51 Pantoprazole 40 Mg Tab PO 12/02/23 08:59 40 mg QAM JAZ Administration Sulfasalazine 500 mg 11/02/23 09:00 11/03/23 13:53 Sulfasalazine 500 Mg Tablet PO 12/02/23 08:59 500 mg TID JAZ Administration Tamsulosin HCl 0.4 mg 11/02/23 21:00 11/02/23 21:10 Tamsulosin Hcl 0.4 Mg Cap PO 12/02/23 20:59 0.4 mg QPM JAZ Administration Trazodone HCl 50 mg 11/02/23 01:24 11/02/23 21:09 Trazodone Hcl 50 Mg Tab PO 12/02/23 01:23 50 mg HS JAZ Administration
[2023-11-04] MEDS: CLOPIDOGREL BISULFATE 75 MG TAB PO SCH (08:50)
--- NOTE | 2023-11-04 13:58 | Discharge Summary ---
Discharge Summary Date of Service November 04, 2023 Notes For Next Care Provider Medication Changes From Visit (prednisone 40mg daily x 2 wks, 30mg daily x 2 wks, 20mg daily x 2 weeks) Admission HPI Per Admitting Provider History obtained from patient and records. Medical history significant for CAD status post stent, hypertension, hyperlipidemia, RADHA on CPAP, DM 2 diet-controlled, GERD, IBD on Entyvio, BPH. Last confinement March 2020 for LGIB. Patient woke up with achy abdominal discomfort which progressed throughout the day. No fever, no chills, no chest pain, no SOB. Usual bowel movements. Had Entyvio infusion for IBD at [facility] today. Patient consulted ER for evaluation. SBP 190s upon arrival at the ER. 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 Admission Exam Per Admitting Provider GENERAL: Comfortable, pleasant, slightly hard of hearing, no respiratory distress SKIN: Normal color, warm HEENT: Alopecia, bespectacled, pink palpebral conjunctivae, no ptosis, dry buccal mucosa NECK : Supple, no tenderness CHEST : CTA, no tenderness HEART : RRR, no obvious murmurs ABDOMEN: Some distention, nontender EXTREMITIES : No LE swelling/tenderness, no other conspicuous deformities noted NEUROLOGIC : Coherent, no facial asymmetry, slightly hard of hearing, no other gross focality Principal Dx & Hospital Course #1 = Principal Diagnosis (1) Small bowel obstruction: Mr. Garg is a 78 year old gentleman with history of htn, hld, CAD s/p OM2 stent 2007, LAD 2005, IBD on entivyo, DMTII, who is admitted on 11/02 for acute abdomen pain and found to have SBO. Patient responding to conservative measures, now s/p BM 11/03. Patient tolerated conservative management and discharged with prolonged steroid taper. #Small Bowel Obstruction #Chronic inflammatory bowel disease -Reported acute onset pain/N/V on 11/01 -s/p solumedrol q 8 hours -Bowel rest with improvement clinically; tolerated diet advancement -GI following: -ESR 7, crp 1.5 -Continued on Soludmedrol q 8 hours while inpatient -Discharged with prednisone 40mg daily x 2 wks, 30mg daily x 2 wks, 20mg daily x 2 weeks and f/u w regular GI provider: [facility] for further taper and management of Crohn's. -Advance to low fiber/low residue diet tonight -If tolerates, discharge tomorrow -General Surgery: improved with conservative measures, signed off 11/03 #CAD status post stent: resume plavix in am #hypertension, slightly elevated secondary to discomfort #hyperlipidemia, on statin Rx #GERD, stable on PPI #DM 2 diet-controlled, well-controlled as of recent hemoglobin A1c of 6.25 July 2023 #RADHA on CPAP On day of discharge, patient doing well and denied any further pain. Patient reports 2 more bowel movements. Discharge Exam Constitutional WD/WN, vitals as above Respiratory normal respiratory effort, lungs clear to auscultation Cardiovascular RRR, no murmur, no edema Gastrointestinal (Abdomen) normal bowel sounds, soft, nontender, no hepatosplenomegaly Musculoskeletal no cyanosis or clubbing, extremities motor strength 5/5 Updated Medication List Medication Instructions Recorded Confirmed Type aspirin 81 mg tablet,delayed 81 mg PO HS 03/15/19 11/01/23 History release atorvastatin 40 mg tablet 40 mg PO HS 03/15/19 11/01/23 History carboxymethylcellulose 0.5 1 drp ophthalmic (eye) TID 03/15/19 11/01/23 History %-glycerin 0.9 % eye drops cetirizine 5 mg-pseudoephedrine ER 1 tab PO Q12H PRN Allergic Symptoms 03/15/19 11/01/23 History 120 mg tablet,extended release,12hr (Zyrtec-D) clopidogrel 75 mg tablet 75 mg PO QAM 03/15/19 11/01/23 History cyanocobalamin (vitamin B-12) 1,000 mcg PO QAM 03/15/19 11/01/23 History 1,000 mcg tablet (Vitamin B-12) esomeprazole magnesium 40 mg 40 mg PO QAM 03/15/19 11/01/23 History capsule,delayed release (Nexium) ferrous sulfate 325 mg (65 mg 325 mg PO QAM 03/15/19 11/01/23 History iron) tablet folic acid 800 mcg tablet 0.8 mg PO 4XWK 03/15/19 11/01/23 History metoprolol succinate 25 mg 25 mg PO HS 03/15/19 11/01/23 History tablet,extended release 24 hr multivitamin 1 tab PO QAM 03/15/19 11/01/23 History nitroglycerin 0.4 mg sublingual 0.4 mg sublingual UD PRN Chest Pain 03/15/19 11/01/23 History tablet sulfasalazine 500 mg tablet 500 mg PO TID 03/15/19 11/01/23 History tamsulosin 0.4 mg capsule 0.4 mg PO QPM 03/15/19 11/01/23 History cholecalciferol (vitamin D3) 125 5,000 unit PO QAM 10/26/19 11/01/23 History mcg (5,000 unit) tablet (Vitamin D3) famotidine 40 mg tablet (Pepcid) 20 mg PO HS 10/26/19 11/01/23 History acetaminophen 500 mg tablet 500 - 1,000 mg PO DIRECTED PRN 11/14/20 11/01/23 History (Tylenol Extra Strength) Pain trazodone 50 mg tablet 50 mg PO HS 11/14/20 11/01/23 History budesonide 32 mcg/actuation nasal 2 spray intranasal HS 11/01/23 11/01/23 History spray diclofenac sodium 1 % topical gel 2 g topical TID PRN Pain 11/01/23 11/01/23 History finasteride 5 mg tablet 5 mg PO QAM 11/01/23 11/01/23 History fluticasone 100 mcg-salmeterol 50 1 inh inhalation BID 11/01/23 11/01/23 History mcg/dose blistr powdr for inhalation ([employer] Inhub) losartan 50 mg tablet 50 mg PO QAM 11/01/23 11/01/23 History prednisone 10 mg tablet 10 mg PO DIRECTED #126 tabs 11/04/23 Rx Hospital Stay Data Consultations 11/01/23 23:29 ED Decision to Admit Stat 11/02/23 01:24 Consult Gastroenterology Routine Consult General Surgery Routine Diagnostic Imagining Performed 11/01/23 21:22 CT abd pelvis IV con only Stat Pending Results Patient Have Any Pending Studies at Discharge: No Discharge Instructions Given to Patient (Per Discharging Provider) You were admitted due to small bowel obstruction. Luckily this resolved with conservative management and bowel rest. You were started on a steroid taper which will continue for 6 weeks: (prednisone 40mg daily x 2 wks, 30mg daily x 2 wks, 20mg daily x 2 weeks) -Please take 40mg (4 tablets) in the morning by mouth from 11/05 till . -Please take 30mg ( 3 tablets) in the morning by mouth from 11/18 until . -Please take 20mg (2 tablets) in the morning by mouth from 12/02, until all tablets are complete. Please follow up with your GI provider It is recommended you follow a low fiber diet. Further direction on ideas to follow for a low fiber diet are attached to this discharge paperwork. Total Time Total Time Spent Total Time Spent (In Minutes): 55
== END 2023-11-04 11:20 | disposition home or self-care (01) | DRG 387 ==
LOC: ED 18:50 → EDINP 11-02 00:34 → SUATTDRO 11-02 00:34 → 2N 11-02 01:24
DX: I10 Essential (primary) hypertension; Z79.82 Long term (current) use of aspirin; N40.0 Benign prostatic hyperplasia without lower urinary tract symptoms; E11.42 Type 2 diabetes mellitus with diabetic polyneuropathy; K21.9 Gastro-esophageal reflux disease without esophagitis; E78.5 Hyperlipidemia, unspecified; K50.012 Crohn's disease of small intestine with intestinal obstruction; Z79.02 Long term (current) use of antithrombotics/antiplatelets; Z80.0 Family history of malignant neoplasm of digestive organs; G47.33 Obstructive sleep apnea (adult) (pediatric); I25.10 Atherosclerotic heart disease of native coronary artery without angina pectoris; Z95.5 Presence of coronary angioplasty implant and graft